=== PATIENT | female | born 1960 | race Caucasian/White ===

== ENCOUNTER → 2016-09-16 | Outpatient (CLI) | payer MEDICARE ==
--- NOTE | 2016-09-16 19:02 | XR ---
EXAMINATION TYPE: XR chest 2V DATE OF EXAM: 09/16/2016 COMPARISON: May 07, 2010 HISTORY: Cough and congestion. History of heart transplant. TECHNIQUE: Frontal and lateral views of the chest are obtained. FINDINGS: There is mild coarsening of interstitial markings. There sternal wires. Heart appears slig htly enlarged. There are no hilar masses. There is no pleural effusion. IMPRESSION: Mild cardiomegaly. No active cardiopulmonary disease. No adverse change compared to old exam.
== END | disposition home or self-care (01) ==
LOC: RADXRMAIN 18:14
PROVIDERS: ATTEND Family Medicine
DX: I51.7 Cardiomegaly (principal); R05 Cough
CPT/HCPCS: 71020

== ENCOUNTER 2017-03-28 15:25 | Emergency (ER) | payer MEDICARE, OTHER ==
[2017-03-28 15:35] VITALS: RESP 20; TEMP 98.4
--- NOTE | 2017-03-28 15:49 | ED ---
General Adult HPI - General Chief complaint: Fever Stated complaint: Cough Time Seen by Provider: 03/28/17 15:39 Source: patient, RN notes reviewed Mode of arrival: ambulatory Limitations: no limitations - History of Present Illness Initial comments: Patient is a 56-year-old female who presents emergency room today with a chief complaint of cough congestion and body aches over the last week. Patient does admit that she was seen prior to [facility] started on antibiotic. She states she's taking amoxicillin. She states she's had no improvement of symptoms. She does admit that she's had low-grade fevers at home. She states nothing over 101 degrees Fahrenheit. She states she's had generalized body aches. She states she's had sputum production it's been green and yellow. She denies any other complaints. Patient denies any recent shortness of breath, chest pain, back pain, abdominal pain, nausea or vomiting, numbness or tingling, headaches or visual changes, or any other complaints. - Related Data Home Medications Medication Instructions Recorded Confirmed Amoxicillin 500 mg PO Q12HR 03/28/17 03/28/17 Aspirin 81 mg PO DAILY 03/28/17 03/28/17 Citalopram Hydrobromide [CeleXA] 10 mg PO DAILY 03/28/17 03/28/17 Ferrous Sulfate [Feosol] 325 mg PO TID 03/28/17 03/28/17 Magnesium Oxide [Mag-Ox] 500 mg PO TID 03/28/17 03/28/17 Mycophenolate Mofetil [Cellcept] 500 mg PO BID 03/28/17 03/28/17 Omeprazole 20 mg PO DAILY 03/28/17 03/28/17 Pravastatin Sodium [Pravachol] 40 mg PO HS 03/28/17 03/28/17 Tacrolimus [Prograf] 2 mg PO BID 03/28/17 03/28/17 Previous Rx's Medication Instructions Recorded Azithromycin [Zithromax Z-pack] 0 mg PO DIRECTED #6 tab 03/28/17 Benzonatate [Tessalon Perles] 100 mg PO TID PRN #20 capsule 03/28/17 Allergies Allergy/AdvReac Type Severity Reaction Status Date / Time meperidine [From Demerol] Allergy Unknown Verified 03/28/17 16:08 morphine Allergy Unknown Verified 03/28/17 16:08 sulfamethoxazole Allergy Unknown Verified 03/28/17 16:08 [From Bactrim] trimethoprim [From Bactrim] Allergy Unknown Verified 03/28/17 16:08 Review of Systems ROS Statement: Those systems with pertinent positive or pertinent negative responses have been documented in the HPI. ROS Other: All systems not noted in ROS Statement are negative. Past Medical History Past Medical History: Heart Failure, Hypertension History of Any Multi-Drug Resistant Organisms: None Reported Past Surgical History: Hysterectomy, Joint Replacement, Orthopedic Surgery Additional Past Surgical History / Comment(s): heart transplant, sinus, carpal tunnel Past Psychological History: No Psychological Hx Reported Smoking Status: Former smoker Past Alcohol Use History: None Reported Past Drug Use History: None Reported General Exam Limitations: no limitations Course Vital Signs 03/28/17 15:32 Temperature 98.4 F Pulse Rate 94 Respiratory 20 Rate Blood Pressure 130/79 O2 Sat by Pulse 98 Oximetry Medical Decision Making - Medical Decision Making Reexamined at this time shows no signs of distress. Patient resting comfortably. Case discussed with attending is Dr. Sadler. Patient's chest x- rays negative. Influenza negative. Patient is to cough congestion over the last week has been on antibiotics and sats positive sputum production with no improvement. Patient was started on azithromycin cover for a bronchitis. Advised follow-up the family doctor. Also be given Tessalon Perles for cough. Advised return if symptoms increase or worsen. - Lab Data Lab Results 03/28/17 Range/Units 15:48 Influenza Type A RNA Not Detected (Not Detectd) Influenza Type B (PCR) Not Detected (Not Detectd) Disposition Clinical Impression: Bronchitis, acute Disposition: HOME SELF-CARE Condition: Good Instructions: Acute Bronchitis (ED) Additional Instructions: Please use medication as discussed. Please follow-up with family doctor in the next 2 days of symptoms have not improved. Please return to emergency room if the symptoms increase or worsen or for any other concerns. Prescriptions: Azithromycin [Zithromax Z-pack] 0 mg PO DIRECTED #6 tab Benzonatate [Tessalon Perles] 100 mg PO TID PRN #20 capsule PRN Reason: Cough Referrals: Willima Guillen DO [Primary Care Provider] - 1-2 days Time of Disposition: 16:46
--- NOTE | 2017-03-28 16:10 | XR ---
EXAMINATION TYPE: XR chest 2V DATE OF EXAM: 03/28/2017 COMPARISON: 09/16/2016 HISTORY: Cough TECHNIQUE: Frontal and lateral views of the chest are obtained. FINDINGS: There is no heart failure nor confluent pneumonic infiltrate. There are sternal wires. Cos tophrenic angles are clear. Bony thorax is intact. IMPRESSION: No active cardiopulmonary disease. No change.
[2017-03-28 17:01] VITALS: BP 119/66; PULSE 92
== END 2017-03-28 17:03 | disposition home or self-care (01) ==
LOC: EC 15:25
DX: J20.9 Acute bronchitis, unspecified (principal); I11.0 Hypertensive heart disease with heart failure; I50.9 Heart failure, unspecified; Z87.891 Personal history of nicotine dependence; Z79.82 Long term (current) use of aspirin; Z79.899 Other long term (current) drug therapy; Z88.5 Allergy status to narcotic agent; Z88.2 Allergy status to sulfonamides
CPT/HCPCS: 71020; 87502; 99283

== ENCOUNTER 2017-06-13 18:30 | Inpatient (IN) | payer MEDICARE, OTHER ==
[2017-06-13] MEDS ORDERED: IPRATROPIUM-ALBUTEROL 3 ML NEB INHALATION STA (18:49)
[2017-06-13] MEDS ORDERED: KETOROLAC 30 MG/ML 1 ML VIAL IVP STA (18:50)
--- NOTE | 2017-06-13 18:53 | ED ---
Chest Pain HPI - General Chief Complaint: Chest Pain Stated Complaint: CHEST PAIN, GABO, HEART Hx Time Seen by Provider: 06/13/17 18:45 Source: patient, RN notes reviewed Mode of arrival: wheelchair Limitations: no limitations - History of Present Illness Initial Comments: Is a 56-year-old female with a history of COPD history of heart transplant 4 years ago who presents with complaints of difficulty breathing yesterday and some chest pain today that is 5/10 severity she points to her right costal chondral margin in the mid upper part of her chest wall anteriorly. She has had a cough of white foamy phlegm she felt feverish has had no chills or sweats no other complaints nothing makes pain better nothing makes it worse. She does point to one particular spot as the location of the pain - Related Data Home Medications Medication Instructions Recorded Confirmed Aspirin 81 mg PO DAILY 03/28/17 06/13/17 Citalopram Hydrobromide [CeleXA] 10 mg PO DAILY 03/28/17 06/13/17 Ferrous Sulfate [Feosol] 325 mg PO TID 03/28/17 06/13/17 Magnesium Oxide [Mag-Ox] 500 mg PO TID 03/28/17 06/13/17 Mycophenolate Mofetil [Cellcept] 500 mg PO BID 03/28/17 06/13/17 Omeprazole 20 mg PO DAILY 03/28/17 06/13/17 Pravastatin Sodium [Pravachol] 40 mg PO HS 03/28/17 06/13/17 Tacrolimus [Prograf] 2 mg PO BID 03/28/17 06/13/17 Allergy Tabotc(Unknown) 1 tab PO DAILY 06/13/17 06/13/17 Previous Rx's Medication Instructions Recorded valACYclovir HCL [Valtrex] 1,000 mg PO TID #21 tablet 03/28/17 Allergies Allergy/AdvReac Type Severity Reaction Status Date / Time meperidine [From Demerol] Allergy Unknown Verified 06/13/17 19:08 morphine Allergy Unknown Verified 06/13/17 19:08 sulfamethoxazole Allergy Unknown Verified 06/13/17 19:08 [From Bactrim] trimethoprim [From Bactrim] Allergy Unknown Verified 06/13/17 19:08 Review of Systems ROS Statement: Those systems with pertinent positive or pertinent negative responses have been documented in the HPI. ROS Other: All systems not noted in ROS Statement are negative. EKG Findings - EKG Results: EKG: interpreted by ANIA, sinus rhythm (Sinus tachycardia rate of 108. Interval 144 QRS duration 132 daily since QTC of 370/506 left exodeviation right bundle-branch block pattern) Past Medical History Past Medical History: Heart Failure, Hypertension History of Any Multi-Drug Resistant Organisms: None Reported Past Surgical History: Hysterectomy, Joint Replacement, Orthopedic Surgery Additional Past Surgical History / Comment(s): heart transplant, sinus, carpal tunnel Past Psychological History: No Psychological Hx Reported Smoking Status: Former smoker Past Alcohol Use History: None Reported Past Drug Use History: None Reported General Exam - General Exam Comments Initial Comments: This is a well-developed well-nourished awake alert oriented 3 female Limitations: no limitations General appearance: alert, in no apparent distress Head exam: Present: atraumatic, normocephalic, normal inspection Eye exam: Present: normal appearance, PERRL, EOMI. Absent: scleral icterus, conjunctival injection, periorbital swelling ENT exam: Present: normal exam, mucous membranes moist Neck exam: Present: normal inspection. Absent: tenderness, meningismus, lymphadenopathy Respiratory exam: Present: chest wall tenderness (Reproducible tenderness palpation along the right lateral costochondral margin no step-off no crepitation this does reproduce the patient's pain), decreased breath sounds. Absent: respiratory distress, wheezes, rales, rhonchi, stridor Cardiovascular Exam: Present: regular rate, normal rhythm, normal heart sounds. Absent: systolic murmur, diastolic murmur, rubs, gallop, clicks GI/Abdominal exam: Present: soft, normal bowel sounds. Absent: distended, tenderness, guarding, rebound, rigid Extremities exam: Present: normal inspection, full ROM, normal capillary refill. Absent: tenderness, pedal edema, joint swelling, calf tenderness Back exam: Present: normal inspection Neurological exam: Present: alert, oriented X3, CN II-XII intact Psychiatric exam: Present: normal affect, normal mood Skin exam: Present: warm, dry, intact, normal color. Absent: rash Course Vital Signs 06/13/17 06/13/17 06/13/17 18:37 19:26 20:10 Temperature 98.4 F Pulse Rate 107 H 105 H 108 H Respiratory 20 18 16 Rate Blood Pressure 109/72 124/75 O2 Sat by Pulse 96 96 Oximetry 06/13/17 06/13/17 20:23 20:56 Temperature Pulse Rate 104 H 105 H Respiratory 14 18 Rate Blood Pressure 111/79 O2 Sat by Pulse 96 Oximetry Chest Pain MDM - MDM Review the imaging shows no definite acute findings. I did discuss the findings with the patient she does have elevation of her troponin 0.133 I did discuss the case with Dr. Yost patient will be admitted with evaluation for elevated troponin chest wall pain as well as atypical chest pain additionally patient states she is feeling somewhat better after the nebulizer treatment. 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 She currently is not a smoker she quit when she had a heart transplant. Critical Care Time Critical Care Time: Yes Critical Care Time: 31 minutes of critical care time which was initial presentation with history physical labs x-rays reevaluation patient responsive therapy discuss with cardiology discussion with the admitting physician admission orders and documentation of the above. Disposition Clinical Impression: Non-ST elevation myocardial infarction (NSTEMI), Atypical chest pain, Chest wall syndrome, COPD exacerbation Disposition: ADMITTED IP TO THIS HOSP Condition: Stable Referrals: William Guillen DO [Primary Care Provider] - 1-2 days
[2017-06-13 19:36] LABS: Basophils % (A) 0 %; Eosinophils # (A) 0.2 k/uL (0-0.7); Eosinophils % (A) 1 %; HCT 38.2 % (34.0-46.0); HGB 12.6 gm/dL (11.4-16.0); Lymphocytes # (A) 2.1 k/uL (1.0-4.8); Lymphocytes % (A) 17 %; MCH 28.5 pg (25.0-35.0); MCHC 32.9 g/dL (31.0-37.0); MCV 86.6 fL (80.0-100.0); Mean Platelet Volume 8.5; Monocytes # (A) 0.5 k/uL (0-1.0); Monocytes % (A) 4 %; Neutrophils # (A) 9.3 k/uL (1.3-7.7); Neutrophils % (A) 76 %; Platelet Count 289 k/uL (150-450); RBC 4.41 m/uL (3.80-5.40); RDW 15.4 % (11.5-15.5); WBC 12.3 k/uL (3.8-10.6)
--- NOTE | 2017-06-13 19:39 | XR ---
EXAMINATION TYPE: XR chest 2V DATE OF EXAM: 06/13/2017 COMPARISON: June 26, 2016 HISTORY: Shortness of breath TECHNIQUE: Frontal and lateral views of the chest are obtained. FINDINGS: Cardiac silhouette is moderately enlarged and stable. Postsurgical changes are noted to th e chest. No pneumothorax or pleural effusion is identified. There is a degree of osteopenia and exagg eration of the normal thoracic kyphosis. IMPRESSION: No acute cardiopulmonary process.
[2017-06-13 19:45] LABS: INR 1.2 (<1.2); Partial Thromboplastin Time 23.1 sec (22.0-30.0); Prothrombin Time 11.4 sec (9.0-12.0)
[2017-06-13 19:48] LABS: ALT 26 U/L (9-52); AST 17 U/L (14-36); Albumin 3.9 g/dL (3.5-5.0); Alkaline Phosphatase 109 U/L (38-126); Anion Gap 12 mmol/L; Blood Urea Nitrogen 22 mg/dL (7-17); Calcium 9.3 mg/dL (8.4-10.2); Carbon Dioxide 23 mmol/L (22-30); Chloride 108 mmol/L (98-107); Glucose 126 mg/dL (74-99); Magnesium 1.7 mg/dL (1.6-2.3); Potassium 3.8 mmol/L (3.5-5.1); Sodium 143 mmol/L (137-145); Total Bilirubin 0.6 mg/dL (0.2-1.3); Total Protein 6.7 g/dL (6.3-8.2)
[2017-06-13 20:20] LABS: Creatine Kinase MB 1.7 ng/mL (0.0-2.4)
[2017-06-13 20:25] LABS: Troponin I 0.133 ng/mL (0.000-0.034)
[2017-06-13 20:59] VITALS: RESP 18
[2017-06-13] MEDS ORDERED: HEPARIN SODIUM,PORCINE 5,000 UNIT/ML 1 ML VIAL IV ONE (21:27)
[2017-06-13] MEDS ORDERED: ACETAMINOPHEN TAB 500 MG TAB PO STA (21:27)
[2017-06-13] MEDS ORDERED: NITROGLYCERIN OINT 1 INCH/GM PACKET TOPICAL STA (21:28)
[2017-06-13] MEDS ORDERED: NITROGLYCERIN SL TABS 0.4 MG TAB SUBLINGUAL PRN (21:30)
[2017-06-13] MEDS ORDERED: SODIUM CHLORIDE 0.9% 1,000 ML IV SCH (21:30)
[2017-06-13] MEDS ORDERED: IPRATROPIUM-ALBUTEROL 3 ML NEB INHALATION PRN (22:59)
[2017-06-13] MEDS: HEPARIN SOD,PORK IN 0.45% NACL 25,000 UNIT in 0.45% NACL 1 500ML.BAG IV SCH (23:14)
[2017-06-14] MEDS ORDERED: IPRATROPIUM-ALBUTEROL 3 ML NEB INHALATION SCH
[2017-06-14 00:20] VITALS: BMI 31.6
[2017-06-14] MEDS: valACYclovir HCL 1,000 MG TABLET PO SCH ×3 (00:26→15:58)
[2017-06-14] MEDS: NITROGLYCERIN OINT 1 INCH/GM PACKET TOPICAL SCH ×4 (00:28→15:59)
[2017-06-14 01:54] LABS: Creatine Kinase MB 1.4 ng/mL (0.0-2.4)
[2017-06-14 01:58] LABS: Troponin I 0.195 ng/mL (0.000-0.034)
[2017-06-14] MEDS: HYDROcodone/APAP 5-325MG 1 EACH TAB PO PRN ×3 (06:05→19:37)
[2017-06-14] MEDS: FERROUS SULFATE 325 MG TAB PO SCH ×3 (06:49→15:59)
[2017-06-14] MEDS: MAGNESIUM OXIDE 400 MG TAB PO SCH ×3 (06:49→15:58)
[2017-06-14 06:57] LABS: Cholesterol 133 mg/dL (<200); HDL Cholesterol 27 mg/dL (40-60); LDL Cholesterol,Calculated 79 mg/dL (0-99); Triglycerides 134 mg/dL (<150)
[2017-06-14 07:18] LABS: Creatine Kinase MB 1.4 ng/mL (0.0-2.4)
[2017-06-14 07:22] LABS: Troponin I 0.202 ng/mL (0.000-0.034)
[2017-06-14] MEDS: IPRATROPIUM-ALBUTEROL 3 ML NEB INHALATION SCH ×3 (07:35→17:02)
[2017-06-14] MEDS: TACROLIMUS 0.5 MG CAP PO SCH ×2 (08:57→19:31)
[2017-06-14] MEDS: MYCOPHENOLATE MOFETIL 500 MG TAB PO SCH ×2 (08:58→19:31)
[2017-06-14] MEDS ORDERED: PANTOPRAZOLE 40 MG TABLET PO SCH (09:00)
[2017-06-14] MEDS ORDERED: CITALOPRAM HYDROBROMIDE 10 MG TAB PO SCH (09:00)
[2017-06-14] MEDS ORDERED: ASPIRIN 325 MG TAB PO SCH (09:00)
[2017-06-14] MEDS ORDERED: ASPIRIN 81 MG PO SCH (09:00)
[2017-06-14] MEDS ORDERED: RX INFO: IV CONTRAST WAS GIVEN 1 EACH MISC MISCELLANE PRN (10:02)
--- NOTE | 2017-06-14 10:20 | CONS ---
CONSULTATION CHIEF COMPLAINT: Chest pain. Syl is a 56-year-old lady with history of cardiac transplant about 4 years ago at [facility], COPD, dyslipidemia, who presented to hospital complaining of chest discomfort. She describes it as a right-sided chest discomfort anteriorly that was located to one spot. There were no clear-cut relieving or exacerbating factors. It was 5/10 in intensity, came to the ER and gradually became chest pain free. At the time of my evaluation, she is free of chest pain, hemodynamically stable and in no apparent distress. She had an EKG that showed sinus rhythm with right bundle branch block and left axis deviation. She has had labs, three sets of troponins that were at 0.13, 0.19, and 0.2[place] [address], LDL cholesterol is 79, her creatinine is normal at 0.8. We do not have a D-dimer. PAST MEDICAL HISTORY: Significant for cardiac transplant, dyslipidemia, COPD. CURRENT MEDICATIONS: Include aspirin, Celexa, iron, magnesium, CellCept, omeprazole, Pravachol, Prograf and Valtrex. ALLERGY: To MORPHINE, DEMEROL, BACTRIM. FAMILY HISTORY: Negative for premature coronary artery disease. SOCIAL HISTORY: She denies current smoking or EtOH abuse. REVIEW OF SYSTEMS: HEENT is unremarkable. CARDIAC: As described above. RESPIRATORY: Negative. GI: Negative. GENITOURINARY: Negative. ALLERGY/IMMUNOLOGY: Negative. SKIN: Negative. MUSCULOSKELETAL: Significant for arthritis. PSYCHOSOCIAL: Negative. ENDOCRINE: Negative. DERM: Negative. CONSTITUTIONAL: Negative. ONCOLOGICAL: Negative. The rest of the system review is not relevant. EXAM: The patient is comfortable at rest. Afebrile. Vital signs are stable. Chest exam reveals diminished air entry at the bases. Heart exam reveals first and second heart sounds. No gallop. There is a systolic murmur in the left lower sternal border. Abdomen is soft. Exam of extremities did not reveal any edema. Peripheral pulses are felt. Labs are as described above. ASSESSMENT: 1. Chest pain, seems atypical. 2. Elevated troponins of unclear clinical significance. 3. History of cardiac transplant with prior issues with rejection. PLAN: I am going to obtain a D-dimer and if that comes back negative, I will leave her on heparin until tomorrow. I will obtain a 2D echo. We should consider transferring her to [facility] so that she can get the appropriate care from her transplant team. I advised the patient that if she comes to the ER in future to have them transfer her to the transplant center right from the ER, which I think is the best way to deal with her. NILS / CHANDLER: [id number] /
--- NOTE | 2017-06-14 11:02 | CT ---
EXAMINATION TYPE: CT angio chest DATE OF EXAM: 06/14/2017 10:48 AM COMPARISON: NONE HISTORY: Difficulty breathing, elevated d-dimer CT DLP: 417.3 mGycm Automated exposure control for dose reduction was used. CONTRAST: CTA scan of the thorax is performed with IV Contrast, patient injected with 100 mL of Omnipaque 350, pulmonary embolism protocol. . FINDINGS: There are small, bilateral pleural effusions. There is associated mild relaxation atelectas is bilaterally. There is no significant axillary, internal mammary, mediastinal or hilar adenopathy. There is no evidence of pulmonary embolus. The aorta is normal in caliber without evidence of dissection. The heart is enlarged. There is no pericardial fluid. Within the abdomen, there is a small amount of ascites. Visualized portions of the abdomen are otherw ise unremarkable. There is mild hypertrophic spondylosis within the spine. IMPRESSION: 1. THIS EXAMINATION IS NEGATIVE FOR PULMONARY 2. SMALL, BILATERAL EFFUSIONS AND A SMALL AMOUNT OF ASCITES. 3. FAIRLY MARKED CARDIOMEGALY.
[2017-06-14 11:20] VITALS: PULSE 100
[2017-06-14 12:01] VITALS: TEMP 96
--- NOTE | 2017-06-14 12:15 | P.HPIM ---
History of Present Illness Patient is 56-year-old female with history of heart transplant done 4 years ago came in with count complaints of retrosternal chest pain sharp in nature nonexertional, nonpleuritic in nature about 9/10 in severity now around 7/10 severity presently the pain is in the back, not associated with shortness of breath, lightheadedness or diaphoresis. Not associated with food. Associated with cough patient does have leukocytosis although does not have any pneumonia on the CAT scan of the chest patient had an elevated edema d-dimer because of which CAT scan of the chest was obtained which showed mild bilateral pleural effusions no pneumonic process are pulmonary embolism. She is found to have mildly elevated troponin and initial troponin being 0.2 related to around 0.1. We do not have any other explanation for elevated troponin. Discussed with cardiology since the patient is a heart transplant patient with history of ejection in the past, plan is to transfer to her to [facility]. Review of Systems REVIEW OF SYSTEMS: CONSTITUTIONAL: No fever, no malaise, no fatigue. HEENT: No recent visual problems or hearing problems. Denied any sore throat. CARDIOVASCULAR: No orthopnea, PND, no palpitations, no syncope. PULMONARY: No shortness of breath, no cough, no hemoptysis. GASTROINTESTINAL: No diarrhea, no nausea, no vomiting, no abdominal pain. Normoactive bowel sounds. NEUROLOGICAL: No headaches, no weakness, no numbness. HEMATOLOGICAL: Denies any bleeding or petechiae. GENITOURINARY: Denies any burning micturition, frequency, or urgency. MUSCULOSKELETAL/RHEUMATOLOGICAL: Denies any joint pain, swelling, or any muscle pain. ENDOCRINE: Denies any polyuria or polydipsia. The rest of the 14-point review of systems is negative. Past Medical History Past Medical History: Heart Failure, COPD, Hypertension History of Any Multi-Drug Resistant Organisms: None Reported Past Surgical History: Cholecystectomy, Hysterectomy, Joint Replacement, Orthopedic Surgery Additional Past Surgical History / Comment(s): heart transplant, sinus, carpal tunnel, left knee replacement Past Psychological History: No Psychological Hx Reported Smoking Status: Former smoker Past Alcohol Use History: None Reported Past Drug Use History: None Reported Medications and Allergies Home Medications Medication Instructions Recorded Confirmed Type Aspirin 81 mg PO DAILY 03/28/17 06/13/17 History Citalopram Hydrobromide [CeleXA] 10 mg PO DAILY 03/28/17 06/13/17 History Ferrous Sulfate [Feosol] 325 mg PO TID 03/28/17 06/13/17 History Magnesium Oxide [Mag-Ox] 500 mg PO TID 03/28/17 06/13/17 History Mycophenolate Mofetil [Cellcept] 500 mg PO BID 03/28/17 06/13/17 History Omeprazole 20 mg PO DAILY 03/28/17 06/13/17 History Pravastatin Sodium [Pravachol] 40 mg PO HS 03/28/17 06/13/17 History Tacrolimus [Prograf] 2 mg PO BID 03/28/17 06/13/17 History valACYclovir HCL [Valtrex] 1,000 mg PO TID #21 tablet 03/28/17 06/13/17 Rx Allergy Tabotc(Unknown) 1 tab PO DAILY 06/13/17 06/13/17 History Allergies Allergy/AdvReac Type Severity Reaction Status Date / Time meperidine [From Demerol] Allergy Unknown Verified 06/13/17 19:08 morphine Allergy Unknown Verified 06/13/17 19:08 sulfamethoxazole Allergy Unknown Verified 06/13/17 19:08 [From Bactrim] trimethoprim [From Bactrim] Allergy Unknown Verified 06/13/17 19:08 Physical Exam Vitals: Vital Signs Temp Pulse Pulse Resp BP BP Pulse Ox 06/14/17 11:59 96.0 F L 100 18 111/67 91 L 06/14/17 11:20 100 06/14/17 07:59 96.9 F L 92 18 109/67 98 06/14/17 07:43 108 H 06/14/17 07:35 100 06/14/17 04:00 97.1 F L 95 18 119/59 95 06/14/17 00:15 106 H 18 06/14/17 00:12 97.3 F L 106 H 18 122/75 94 L 06/13/17 23:17 98.8 F 97 18 109/73 96 06/13/17 20:56 105 H 18 111/79 96 06/13/17 20:23 104 H 14 06/13/17 20:10 108 H 16 06/13/17 19:26 105 H 18 124/75 96 06/13/17 18:37 98.4 F 107 H 20 109/72 96 Intake and Output 06/13/17 06/14/17 06/14/17 22:59 06:59 14:59 Intake Total 20 143.992 Output Total 400 Balance 20 -256.008 Intake: Intake, IV Titration 20 143.992 Amount Heparin Sod,Pork in 0.45% 143.992 NaCl 25,000 unit In 0.45 % NaCl 1 500ml.bag @ 12 UNITS/KG/HR 18.5 mls/hr IV .Q24H [facility] Rx#: [id number] Sodium Chloride 0.9% 1, 20 000 ml @ 20 mls/hr IV . Q24H [facility] Rx#:[id number] Oral 0 Output: Urine 400 Other: Voiding Method Toilet Weight 77.111 kg 83.4 kg PHYSICAL EXAMINATION: GENERAL: The patient is alert and oriented x3, not in any acute distress. Well developed, well nourished. HEENT: Pupils are round and equally reacting to light. EOMI. No scleral icterus. No conjunctival pallor. Normocephalic, atraumatic. No pharyngeal erythema. No thyromegaly. CARDIOVASCULAR: S1 and S2 present. No murmurs, rubs, or gallops. PULMONARY: Chest is clear to auscultation, no wheezing or crackles. ABDOMEN: Soft, nontender, nondistended, normoactive bowel sounds. No palpable organomegaly. MUSCULOSKELETAL: No joint swelling or deformity. EXTREMITIES: No cyanosis, clubbing, or pedal edema. NEUROLOGICAL: Gross neurological examination did not reveal any focal deficits. SKIN: No rashes. Results CBC & Chem 7: 06/13/17 19:25 06/13/17 19:25 Labs: Abnormal Lab Results - Last 24 Hours (Table) 06/13/17 06/13/17 06/13/17 Range/Units 19:25 19:25 19:25 WBC 12.3 H (3.8-10.6) k/uL Neutrophils # 9.3 H (1.3-7.7) k/uL INR (<1.2) APTT (22.0-30.0) sec D-Dimer (<0.60) mg/L FEU Chloride 108 H (98-107) mmol/L BUN 22 H (7-17) mg/dL Glucose 126 H (74-99) mg/dL Troponin I 0.133 H* (0.000-0.034) ng/mL HDL Cholesterol (40-60) mg/dL 18 06/14/17 06/14/17 Range/Units 19:25 00:58 06:33 WBC (3.8-10.6) k/uL Neutrophils # (1.3-7.7) k/uL INR 1.2 H (<1.2) APTT (22.0-30.0) sec D-Dimer (<0.60) mg/L FEU Chloride (98-107) mmol/L BUN (7-17) mg/dL Glucose (74-99) mg/dL Troponin I 0.195 H* 0.202 H* (0.000-0.034) ng/mL HDL Cholesterol (40-60) mg/dL 06/14/17 06/14/17 06/14/17 Range/Units 06:33 06:33 06:33 WBC (3.8-10.6) k/uL Neutrophils # (1.3-7.7) k/uL INR (<1.2) APTT 30.5 H (22.0-30.0) sec D-Dimer 2.77 H (<0.60) mg/L FEU Chloride (98-107) mmol/L BUN (7-17) mg/dL Glucose (74-99) mg/dL Troponin I (0.000-0.034) ng/mL HDL Cholesterol 27 L (40-60) mg/dL Thrombosis Risk Factor Assmnt - Choose All That Apply Any of the Below Risk Factors Present?: Yes Each Factor Represents 1 point: Abnormal pulmonary function (COPD), Age 41-60 years, Obesity (BMI >25) Thrombosis Risk Factor Assessment Total Risk Factor Score: 3 Thrombosis Risk Factor Assessment Level: Moderate Risk Assessment and Plan Plan: -Chest pain: Appears to be musculoskeletal in origin but non-ST elevation microinfarction cannot be ruled out patient is on IV heparin patient does have elevated troponin. -Post cardiac transplant: Patient will be resumed on mycophenolate. -Rule out pulmonary embolism -COPD without any acute exacerbation. -Leukocytosis secondary to viral bronchitis. -Hypertension
--- NOTE | 2017-06-14 12:55 | P.DS ---
Providers Date of admission: 06/13/17 21:34 Attending physician: Angel Guerrero Consults: 06/13/17 21:31 Consult Physician Urgent Consulting Provider: Chante Yost Consult Reason/Comments: Chest pain, elevated troponin Do you want consulting provider notified?: Already Contacted Primary care physician: William Guillen [facility] Course: Patient is being transferred to [facility] considering her heart transplant and elevated troponins Patient Condition at Discharge: Stable Plan - Discharge Summary Discharge Rx Participant: No New Discharge Prescriptions: No Action Magnesium Oxide [Mag-Ox] 500 mg PO TID Aspirin 81 mg PO DAILY Mycophenolate Mofetil [Cellcept] 500 mg PO BID Citalopram Hydrobromide [CeleXA] 10 mg PO DAILY Pravastatin Sodium [Pravachol] 40 mg PO HS Omeprazole 20 mg PO DAILY Ferrous Sulfate [Feosol] 325 mg PO TID Tacrolimus [Prograf] 2 mg PO BID valACYclovir HCL [Valtrex] 1,000 mg PO TID #21 tablet Allergy Tabotc(Unknown) 1 tab PO DAILY Discharge Medication List Aspirin 81 mg PO DAILY 03/28/17 [History] Citalopram Hydrobromide [CeleXA] 10 mg PO DAILY 03/28/17 [History] Ferrous Sulfate [Feosol] 325 mg PO TID 03/28/17 [History] Magnesium Oxide [Mag-Ox] 500 mg PO TID 03/28/17 [History] Mycophenolate Mofetil [Cellcept] 500 mg PO BID 03/28/17 [History] Omeprazole 20 mg PO DAILY 03/28/17 [History] Pravastatin Sodium [Pravachol] 40 mg PO HS 03/28/17 [History] Tacrolimus [Prograf] 2 mg PO BID 03/28/17 [History] valACYclovir HCL [Valtrex] 1,000 mg PO TID #21 tablet 03/28/17 [Rx] Allergy Tabotc(Unknown) 1 tab PO DAILY 06/13/17 [History] Follow up Appointment(s)/Referral(s): William Guillen DO [Primary Care Provider] - 1-2 days Discharge Disposition: OTHER INSTITUTION NOT DEFINED
[2017-06-14 16:18] VITALS: BP 137/77
[2017-06-14] MEDS: HEPARIN SOD,PORK IN 0.45% NACL 25,000 UNIT in 0.45% NACL 1 500ML.BAG IV SCH (19:33)
[2017-06-14] MEDS ORDERED: PRAVASTATIN SODIUM 40 MG TAB PO SCH (21:00)
== END 2017-06-14 19:50 | disposition short-term general hospital (02) | DRG 313 ==
LOC: EC 18:30 → 6SEL 21:34
PROVIDERS: ADMIT Hospitalist; ATTEND Hospitalist
DX: R07.9 Chest pain, unspecified (principal); I11.0 Hypertensive heart disease with heart failure; Z94.1 Heart transplant status; J44.0 Chronic obstructive pulmonary disease with (acute) lower respiratory infection; I50.9 Heart failure, unspecified; J44.1 Chronic obstructive pulmonary disease with (acute) exacerbation; R74.8 Abnormal levels of other serum enzymes; I45.10 Unspecified right bundle-branch block; J20.8 Acute bronchitis due to other specified organisms; E78.5 Hyperlipidemia, unspecified; Z79.82 Long term (current) use of aspirin; Z79.899 Other long term (current) drug therapy; Z87.891 Personal history of nicotine dependence; Z90.710 Acquired absence of both cervix and uterus; Z96.652 Presence of left artificial knee joint
CPT/HCPCS: 36415; 71046; 71275; 80053; 80061; 82550; 82553; 83735; 83880; 84484; 85025; 85379; 85610; 85730; 93005; 94640; 96374; 96375; 99291

== ENCOUNTER 2017-10-21 22:55 | Emergency (ER) | payer MEDICARE, OTHER ==
[2017-10-22 06:50] LABS: ALT 26 U/L (9-52); AST 16 U/L (14-36); Albumin 3.4 g/dL (3.5-5.0); Alkaline Phosphatase 80 U/L (38-126); Anion Gap 7 mmol/L; Blood Urea Nitrogen 12 mg/dL (7-17); Calcium 8.7 mg/dL (8.4-10.2); Carbon Dioxide 24 mmol/L (22-30); Chloride 113 mmol/L (98-107); Glucose 102 mg/dL (74-99); Magnesium 1.6 mg/dL (1.6-2.3); Potassium 3.5 mmol/L (3.5-5.1); Sodium 144 mmol/L (137-145); Total Bilirubin <0.1 mg/dL (0.2-1.3); Total Protein 5.7 g/dL (6.3-8.2)
[2017-10-22 06:51] LABS: Creatine Kinase MB 0.8 ng/mL (0.0-2.4)
[2017-10-22 06:52] LABS: Troponin I 0.057 ng/mL (0.000-0.034)
[2017-10-22 06:59] LABS: Basophils % (A) 0 %; Eosinophils # (A) 0.2 k/uL (0-0.7); Eosinophils % (A) 2 %; HCT 33.3 % (34.0-46.0); HGB 10.6 gm/dL (11.4-16.0); Hypochromasia Moderate; Lymphocytes # (A) 1.1 k/uL (1.0-4.8); Lymphocytes % (A) 13 %; MCH 27.6 pg (25.0-35.0); MCHC 31.7 g/dL (31.0-37.0); Mean Platelet Volume 7.5; Monocytes # (A) 0.5 k/uL (0-1.0); Monocytes % (A) 6 %; Neutrophils # (A) 6.3 k/uL (1.3-7.7); Neutrophils % (A) 77 %; Platelet Count 257 k/uL (150-450); RBC 3.83 m/uL (3.80-5.40); RDW 15.9 % (11.5-15.5); WBC 8.3 k/uL (3.8-10.6)
--- NOTE | 2017-10-22 11:24 | XR ---
EXAMINATION TYPE: XR chest 2V DATE OF EXAM: 10/22/2017 COMPARISON: Prior chest x-ray July 17, 2017 and older studies. CTA chest June 14, 2017 HISTORY: Cough and shortness of breath TECHNIQUE: Frontal and lateral views of the chest are obtained. FINDINGS: Overlying sternal wires and mediastinal clips are redemonstrated. There is chronic parenchy mal change and opacity with chronic silhouetting of the left heart border. There is no suspicious new focal air space opacity, pleural effusion, or pneumothorax seen. The cardiac silhouette size remain s enlarged. The osseous structures are demineralized.. Cholecystectomy clips are noted. IMPRESSION: Chronic parenchymal changes and cardiomegaly, cannot exclude early versus chronic lingul ar infiltrate. Consider progress two view chest xray.
== END 2017-10-22 04:45 | disposition other institution (70) ==
LOC: EC 22:55
DX: J18.9 Pneumonia, unspecified organism (principal); I50.9 Heart failure, unspecified; Z94.1 Heart transplant status; Z95.1 Presence of aortocoronary bypass graft; Z88.5 Allergy status to narcotic agent; Z88.8 Allergy status to other drugs, medicaments and biological substances; Z87.891 Personal history of nicotine dependence
CPT/HCPCS: 36415; 71046; 80053; 82550; 82553; 83735; 83880; 84484; 85025; 85379; 94640; 96374; 96375; 99285

== ENCOUNTER 2018-01-17 16:35 | Emergency (ER) | payer MEDICARE, OTHER ==
--- NOTE | 2018-01-17 17:03 | ED ---
General Adult HPI - General Chief complaint: Abdominal Pain Stated complaint: Abd pain/Poss Kidney Failure Source: patient Mode of arrival: ambulatory Limitations: no limitations - History of Present Illness Initial comments: Dictation was produced using [employer] dictation software. please excuse any grammatical, word or spelling errors. Chief Complaint: 57-year-old female with past medical history of heart transplant, CHF and kidney failure presents with back pain since yesterday. History of Present Illness: Patient is a 57-year-old female presents with back pain and burning in urination. Patient states that her symptoms started yesterday. State that her symptoms aren't with back pain. Patient also has associated burning on urination. She complaining of constitutional symptoms associated. She states that she's been feeling some chills. Denies any fever. Patient is on immunosuppressants for heart transplant. Primary care physician is Dr. Guillen in [facility]. She normally receives her care at [facility]. Patient was 44 resulting when she had a heart transplant. Denies any abdominal pain. Denies any neuro deficits or bilateral lower extremities symptoms. The ROS documented in this emergency department record has been reviewed and confirmed by me. Those systems with pertinent positive or negative responses have been documented in the HPI. All other systems are other negative and/or noncontributory. - Related Data Home Medications Medication Instructions Recorded Confirmed Aspirin 81 mg PO DAILY 03/28/17 07/17/17 Citalopram Hydrobromide [CeleXA] 10 mg PO DAILY 03/28/17 07/17/17 Ferrous Sulfate [Feosol] 325 mg PO TID 03/28/17 07/17/17 Magnesium Oxide [Mag-Ox] 500 mg PO TID 03/28/17 07/17/17 Omeprazole 20 mg PO DAILY 03/28/17 07/17/17 Pravastatin Sodium [Pravachol] 40 mg PO HS 03/28/17 07/17/17 Tacrolimus [Prograf] 2 mg PO BID 03/28/17 07/17/17 Allergy Tabotc(Unknown) 1 tab PO DAILY 06/13/17 07/17/17 Apixaban [Eliquis] 5 mg PO BID 07/17/17 07/17/17 Mycophenolate Mofetil [Cellcept] 1,250 mg PO BID 07/17/17 07/17/17 predniSONE 5 mg PO DAILY 07/17/17 07/17/17 valGANciclovir [Valcyte] 450 mg PO QAM 07/17/17 07/17/17 Allergies Allergy/AdvReac Type Severity Reaction Status Date / Time morphine Allergy Rash/Hives Verified 01/17/18 18:28 sulfamethoxazole Allergy Dyspnea Verified 01/17/18 18:28 [From Bactrim] trimethoprim [From Bactrim] Allergy Dyspnea Verified 01/17/18 18:28 meperidine [From Demerol] AdvReac Hallucinati Verified 01/17/18 18:28 ons Review of Systems ROS Statement: Those systems with pertinent positive or pertinent negative responses have been documented in the HPI. ROS Other: All systems not noted in ROS Statement are negative. Past Medical History Past Medical History: Heart Failure, COPD, Hypertension, Renal Disease History of Any Multi-Drug Resistant Organisms: None Reported Past Surgical History: Cholecystectomy, Hysterectomy, Joint Replacement, Orthopedic Surgery Additional Past Surgical History / Comment(s): heart transplant, sinus, carpal tunnel, left knee replacement Past Psychological History: No Psychological Hx Reported Smoking Status: Current every day smoker Past Alcohol Use History: None Reported Past Drug Use History: None Reported General Exam - General Exam Comments Initial Comments: PHYSICAL EXAM: General Impression: Alert and oriented x3, not in acute distress HEENT: Normocephalic atraumatic, extra-ocular movements intact, pupils equal and reactive to light bilaterally, mucous membranes moist. Cardiovascular: Heart regular rate and rhythm, S1&S2 audible, no murmurs, rubs or gallops Chest: Lungs clear to auscultation bilaterally, no rhonchi, no wheeze, no rales Abdomen: Bowel sounds present, abdomen soft, non-tender, non-distended, no organomegaly Musculoskeletal: Pulses present and equal in all extremities, no peripheral edema Motor: Power 5/5 bilaterally, no focal deficits noted, mild tenderness to palpation over the L2-L3 area Neurological: CN II-XII grossly intact, no focal motor or sensory deficits noted Skin: Intact with no visualized rashes Psych: Normal affect and mood Limitations: no limitations Course Vital Signs 01/17/18 16:50 Temperature 98 F Pulse Rate 116 H Respiratory 20 Rate Blood Pressure 128/88 O2 Sat by Pulse 98 Oximetry Medical Decision Making - Medical Decision Making ED course: 57-year-old female presents with back pain and burning on urination. Patient has history of cardiac transplant. Vital signs upon arrival shows tachycardia 116, vital signs within normal limits.Laboratory evaluation obtained. CBC is unremarkable. ESR is negative. Metabolic panel is unremarkable. No signs of acute kidney injury. Urinalysis is negative for urinary tract infection. At this point there is very low clinical suspicion that patient's symptoms represent spinal infection. Patient reevaluated with stable medical condition. She told to follow-up with primary care physician upon discharge. - Lab Data Result diagrams: 01/17/18 17:11 01/17/18 17:11 Lab Results 01/17/18 01/17/18 01/17/18 Range/Units 17:11 17:11 17:30 WBC 8.5 (3.8-10.6) k/uL RBC 4.73 (3.80-5.40) m/uL Hgb 12.2 (11.4-16.0) gm/dL Hct 40.6 (34.0-46.0) % MCV 85.8 (80.0-100.0) fL MCH 25.8 (25.0-35.0) pg MCHC 30.1 L (31.0-37.0) g/dL RDW 16.8 H (11.5-15.5) % Plt Count 285 (150-450) k/uL Neutrophils % 70 % Lymphocytes % 22 % Monocytes % 4 % Eosinophils % 2 % Basophils % 1 % Neutrophils # 6.0 (1.3-7.7) k/uL Lymphocytes # 1.8 (1.0-4.8) k/uL Monocytes # 0.3 (0-1.0) k/uL Eosinophils # 0.2 (0-0.7) k/uL Basophils # 0.1 (0-0.2) k/uL Hypochromasia Moderate Anisocytosis Slight ESR 11 (0-20) mm/hr Sodium 141 (137-145) mmol/L Potassium 4.1 (3.5-5.1) mmol/L Chloride 111 H (98-107) mmol/L Carbon Dioxide 23 (22-30) mmol/L Anion Gap 7 mmol/L BUN 20 H (7-17) mg/dL Creatinine 0.70 (0.52-1.04) mg/dL Est GFR (CKD-EPI)AfAm >90 (>60 ml/min/1.73 sqM) Est GFR (CKD-EPI)NonAf >90 (>60 ml/min/1.73 sqM) Glucose 115 H (74-99) mg/dL Calcium 9.1 (8.4-10.2) mg/dL C-Reactive Protein <5.0 (<10.0) mg/L Urine Color Yellow Urine Appearance Clear (Clear) Urine pH 6.0 (5.0-8.0) Ur Specific [place] 1.018 (1.001-1.035) Urine Protein Negative (Negative) Urine Glucose (UA) Negative (Negative) Urine Ketones Negative (Negative) Urine Blood Negative (Negative) Urine Nitrite Negative (Negative) Urine Bilirubin Negative (Negative) Urine Urobilinogen 3.0 (<2.0) mg/dL Ur Leukocyte Esterase Negative (Negative) Disposition Clinical Impression: Mechanical back pain Disposition: HOME SELF-CARE Instructions: Acute Low Back Pain (ED) Is patient prescribed a controlled substance at d/c from ED?: No Referrals: William Guillen DO [Primary Care Provider] - 1-2 days Time of Disposition: 18:43
[2018-01-17 17:28] LABS: Anisocytosis Slight; Basophils # (A) 0.1 k/uL (0-0.2); Basophils % (A) 1 %; Eosinophils # (A) 0.2 k/uL (0-0.7); Eosinophils % (A) 2 %; HCT 40.6 % (34.0-46.0); HGB 12.2 gm/dL (11.4-16.0); Hypochromasia Moderate; Lymphocytes # (A) 1.8 k/uL (1.0-4.8); Lymphocytes % (A) 22 %; MCH 25.8 pg (25.0-35.0); MCHC 30.1 g/dL (31.0-37.0); MCV 85.8 fL (80.0-100.0); Mean Platelet Volume 7.5; Monocytes # (A) 0.3 k/uL (0-1.0); Monocytes % (A) 4 %; Neutrophils % (A) 70 %; Platelet Count 285 k/uL (150-450); RBC 4.73 m/uL (3.80-5.40); RDW 16.8 % (11.5-15.5); WBC 8.5 k/uL (3.8-10.6)
[2018-01-17 18:02] LABS: Anion Gap 7 mmol/L; Blood Urea Nitrogen 20 mg/dL (7-17); C Reactive Protein <5.0 mg/L (<10.0); Calcium 9.1 mg/dL (8.4-10.2); Carbon Dioxide 23 mmol/L (22-30); Chloride 111 mmol/L (98-107); Glucose 115 mg/dL (74-99); Potassium 4.1 mmol/L (3.5-5.1); Sodium 141 mmol/L (137-145)
[2018-01-17 18:02] LABS: Appearance,Urine Clear (Clear); Bilirubin,Urine Negative (Negative); Blood,Urine Negative (Negative); Color,Urine Yellow; Glucose,Urine (UA) Negative (Negative); Ketones,Urine Negative (Negative); Leukocyte Esterase,Urine Negative (Negative); Nitrite,Urine Negative (Negative); Protein,Urine Negative (Negative); Specific Gravity,Urine 1.018 (1.001-1.035)
[2018-01-17 18:13] LABS: Erythrocyte Sedimentation Rate 11 mm/hr (0-20)
[2018-01-17 18:58] VITALS: BP 140/99; PULSE 122; RESP 18; TEMP 98.2
== END 2018-01-17 18:59 | disposition home or self-care (01) ==
LOC: EC 16:35
DX: M54.9 Dorsalgia, unspecified (principal); R00.0 Tachycardia, unspecified; R30.0 Dysuria; I11.0 Hypertensive heart disease with heart failure; I50.9 Heart failure, unspecified; F17.200 Nicotine dependence, unspecified, uncomplicated; Z79.82 Long term (current) use of aspirin; Z79.01 Long term (current) use of anticoagulants; Z79.52 Long term (current) use of systemic steroids; Z79.899 Other long term (current) drug therapy; Z88.2 Allergy status to sulfonamides; Z88.5 Allergy status to narcotic agent; Z96.652 Presence of left artificial knee joint; Z94.1 Heart transplant status; Z90.49 Acquired absence of other specified parts of digestive tract
CPT/HCPCS: 36415; 80048; 81003; 85025; 85652; 86140; 87086; 99284

== ENCOUNTER 2018-01-31 18:51 | Inpatient (IN) | payer MEDICARE, OTHER ==
[2018-01-31] MEDS ORDERED: methylPREDNISolone SOD SUCCI 125 MG/2 ML VIAL IV STA (19:12)
[2018-01-31] MEDS ORDERED: IPRATROPIUM-ALBUTEROL 3 ML NEB INHALATION STA ×2 (19:12→20:52)
--- NOTE | 2018-01-31 19:22 | ED ---
SOB HPI - General Chief Complaint: Shortness of Breath Stated Complaint: abdominal swelling/GABO Time Seen by Provider: 01/31/18 18:55 Source: patient, RN notes reviewed Mode of arrival: ambulatory Limitations: no limitations - History of Present Illness Initial Comments: This is a 57-year-old female with a history of multiple medical problems including COPD who presents with complaints of shortness of breath this started yesterday she said fevers chills sweats cough of white phlegm no chest pain no relief from her home medications no edema she has had a history of kidney failure in the past. MD Complaint: shortness of breath - Related Data Home Medications Medication Instructions Recorded Confirmed Aspirin 81 mg PO DAILY 03/28/17 07/17/17 Citalopram Hydrobromide [CeleXA] 10 mg PO DAILY 03/28/17 07/17/17 Ferrous Sulfate [Feosol] 325 mg PO TID 03/28/17 07/17/17 Magnesium Oxide [Mag-Ox] 500 mg PO TID 03/28/17 07/17/17 Omeprazole 20 mg PO DAILY 03/28/17 07/17/17 Pravastatin Sodium [Pravachol] 40 mg PO HS 03/28/17 07/17/17 Tacrolimus [Prograf] 2 mg PO BID 03/28/17 07/17/17 Allergy Tabotc(Unknown) 1 tab PO DAILY 06/13/17 07/17/17 Apixaban [Eliquis] 5 mg PO BID 07/17/17 07/17/17 Mycophenolate Mofetil [Cellcept] 1,250 mg PO BID 07/17/17 07/17/17 predniSONE 5 mg PO DAILY 07/17/17 07/17/17 valGANciclovir [Valcyte] 450 mg PO QAM 07/17/17 07/17/17 Allergies Allergy/AdvReac Type Severity Reaction Status Date / Time morphine Allergy Rash/Hives Verified 01/31/18 18:57 sulfamethoxazole Allergy Dyspnea Verified 01/31/18 18:57 [From Bactrim] trimethoprim [From Bactrim] Allergy Dyspnea Verified 01/31/18 18:57 meperidine [From Demerol] AdvReac Hallucinati Verified 01/31/18 18:57 ons Review of Systems ROS Statement: Those systems with pertinent positive or pertinent negative responses have been documented in the HPI. ROS Other: All systems not noted in ROS Statement are negative. Past Medical History Past Medical History: Heart Failure, COPD, Hypertension, Renal Disease History of Any Multi-Drug Resistant Organisms: None Reported Past Surgical History: Cholecystectomy, Hysterectomy, Joint Replacement, Orthopedic Surgery Additional Past Surgical History / Comment(s): heart transplant, sinus, carpal tunnel, left knee replacement Past Psychological History: No Psychological Hx Reported Smoking Status: Former smoker Past Alcohol Use History: None Reported Past Drug Use History: None Reported General Exam - General Exam Comments Initial Comments: This is a well-developed well-nourished awake alert oriented 3 female who is in obvious respiratory distress Limitations: no limitations General appearance: alert, anxious, in distress Head exam: Present: atraumatic, normocephalic, normal inspection Eye exam: Present: normal appearance, PERRL, EOMI. Absent: scleral icterus, conjunctival injection, periorbital swelling ENT exam: Present: normal exam, mucous membranes moist Neck exam: Present: normal inspection. Absent: tenderness, meningismus, lymphadenopathy Respiratory exam: Present: wheezes, accessory muscle use, decreased breath sounds. Absent: respiratory distress, rales, rhonchi, stridor Cardiovascular Exam: Present: normal rhythm, tachycardia, normal heart sounds. Absent: systolic murmur, diastolic murmur, rubs, gallop, clicks GI/Abdominal exam: Present: soft, normal bowel sounds. Absent: distended, tenderness, guarding, rebound, rigid Extremities exam: Present: normal inspection, full ROM, normal capillary refill. Absent: tenderness, pedal edema, joint swelling, calf tenderness Back exam: Present: normal inspection Neurological exam: Present: alert, oriented X3, CN II-XII intact Psychiatric exam: Present: normal affect, normal mood Skin exam: Present: warm, dry, intact, normal color. Absent: rash Course Vital Signs 01/31/18 01/31/18 01/31/18 18:54 19:37 19:39 Temperature 99.4 F Pulse Rate 138 H 135 H 134 H Pulse Rate [ 133 H Clothing Manager ] Respiratory 20 22 Rate Blood Pressure 129/88 126/87 O2 Sat by Pulse 92 L 93 L Oximetry 01/31/18 01/31/18 01/31/18 19:47 20:52 21:03 Temperature Pulse Rate 134 H 133 H 131 H Pulse Rate [ Clothing Manager ] Respiratory 26 H Rate Blood Pressure 115/73 O2 Sat by Pulse 92 L Oximetry 01/31/18 21:12 Temperature Pulse Rate 133 H Pulse Rate [ Clothing Manager ] Respiratory Rate Blood Pressure O2 Sat by Pulse Oximetry - Reevaluation(s) Reevaluation #1: 01/31/18 21:40 Reevaluation the patient reveals some improvement in her aeration. She still dyspneic however. She still remains tachycardic Medical Decision Making - Medical Decision Making Patient does demonstrate evidence of CHF as well as COPD exacerbation she will be admitted to discuss case with Dr. Carson. Patient will be seen by cardiology and pulmonary medicine. Patient did demonstrate low-grade temperature upon arrival no definite focal etiology antibiotics - Lab Data Result diagrams: 01/31/18 19:23 01/31/18 19:23 Lab Results 01/31/18 01/31/18 01/31/18 Range/Units 19:23 19:23 19:23 WBC 9.5 (3.8-10.6) k/uL RBC 4.46 (3.80-5.40) m/uL Hgb 11.7 (11.4-16.0) gm/dL Hct 37.8 (34.0-46.0) % MCV 84.7 (80.0-100.0) fL MCH 26.2 (25.0-35.0) pg MCHC 31.0 (31.0-37.0) g/dL RDW 16.5 H (11.5-15.5) % Plt Count 271 (150-450) k/uL Neutrophils % 83 % Lymphocytes % 9 % Monocytes % 5 % Eosinophils % 1 % Basophils % 0 % Neutrophils # 7.9 H (1.3-7.7) k/uL Lymphocytes # 0.9 L (1.0-4.8) k/uL Monocytes # 0.5 (0-1.0) k/uL Eosinophils # 0.1 (0-0.7) k/uL Basophils # 0.0 (0-0.2) k/uL Hypochromasia Moderate Anisocytosis Slight PT (9.0-12.0) sec INR (<1.2) APTT (22.0-30.0) sec Sodium 141 (137-145) mmol/L Potassium 4.0 (3.5-5.1) mmol/L Chloride 110 H (98-107) mmol/L Carbon Dioxide 22 (22-30) mmol/L Anion Gap 9 mmol/L BUN 9 (7-17) mg/dL Creatinine 0.70 (0.52-1.04) mg/dL Est GFR (CKD-EPI)AfAm >90 (>60 ml/min/1.73 sqM) Est GFR (CKD-EPI)NonAf >90 (>60 ml/min/1.73 sqM) Glucose 127 H (74-99) mg/dL Calcium 9.2 (8.4-10.2) mg/dL Magnesium 1.7 (1.6-2.3) mg/dL Total Bilirubin 1.0 (0.2-1.3) mg/dL AST 18 (14-36) U/L ALT 17 (9-52) U/L Alkaline Phosphatase 109 (38-126) U/L Total Creatine Kinase 69 (30-135) U/L CK-MB (CK-2) 0.5 (0.0-2.4) ng/mL CK-MB (CK-2) Rel Index 0.7 Troponin I 0.031 (0.000-0.034) ng/mL NT-Pro-B Natriuret Pep pg/mL Total Protein 6.5 (6.3-8.2) g/dL Albumin 3.8 (3.5-5.0) g/dL 01/31/18 01/31/18 Range/Units 19:23 19:23 WBC (3.8-10.6) k/uL RBC (3.80-5.40) m/uL Hgb (11.4-16.0) gm/dL Hct (34.0-46.0) % MCV (80.0-100.0) fL MCH (25.0-35.0) pg MCHC (31.0-37.0) g/dL RDW (11.5-15.5) % Plt Count (150-450) k/uL Neutrophils % % Lymphocytes % % Monocytes % % Eosinophils % % Basophils % % Neutrophils # (1.3-7.7) k/uL Lymphocytes # (1.0-4.8) k/uL Monocytes # (0-1.0) k/uL Eosinophils # (0-0.7) k/uL Basophils # (0-0.2) k/uL Hypochromasia Anisocytosis PT 11.6 (9.0-12.0) sec INR 1.2 H (<1.2) APTT 25.0 (22.0-30.0) sec Sodium (137-145) mmol/L Potassium (3.5-5.1) mmol/L Chloride (98-107) mmol/L Carbon Dioxide (22-30) mmol/L Anion Gap mmol/L BUN (7-17) mg/dL Creatinine (0.52-1.04) mg/dL Est GFR (CKD-EPI)AfAm (>60 ml/min/1.73 sqM) Est GFR (CKD-EPI)NonAf (>60 ml/min/1.73 sqM) Glucose (74-99) mg/dL Calcium (8.4-10.2) mg/dL Magnesium (1.6-2.3) mg/dL Total Bilirubin (0.2-1.3) mg/dL AST (14-36) U/L ALT (9-52) U/L Alkaline Phosphatase (38-126) U/L Total Creatine Kinase (30-135) U/L CK-MB (CK-2) (0.0-2.4) ng/mL CK-MB (CK-2) Rel Index Troponin I (0.000-0.034) ng/mL NT-Pro-B Natriuret Pep 20695 pg/mL Total Protein (6.3-8.2) g/dL Albumin (3.5-5.0) g/dL - EKG Data -: EKG Interpreted by [place] EKG shows normal: sinus rhythm (Sinus tachycardia 137 IN interval 1:30 QRS duration 110 QT/QTC 296/446 left atrial enlargement and incomplete right bundle- branch block with anterior fascicular block nonspecific lateral configuration) - Radiology Data Radiology results: report reviewed (Imaging was reviewed no focal consolidations or is evidence of increased pulmonary vascular congestion and cardiomegaly. Please see the complete report), image reviewed Critical Care Time Critical Care Time: Yes Critical Care Time: 32 minutes of critical care time which includes initial presentation with history physical labs x-rays multiple reevaluation the patient to response to therapy discuss with the patient regarding findings discussion the admitting physician admission orders documentation of the above Disposition Clinical Impression: Congestive heart failure, Acute exacerbation of chronic obstructive airways disease, Adult respiratory distress syndrome, Tachycardia Disposition: ADMITTED IP TO THIS HOSP Condition: Stable Referrals: William Guillen DO [Primary Care Provider] - 1-2 days
[2018-01-31 19:47] LABS: Anisocytosis Slight; Basophils % (A) 0 %; Eosinophils # (A) 0.1 k/uL (0-0.7); Eosinophils % (A) 1 %; HCT 37.8 % (34.0-46.0); HGB 11.7 gm/dL (11.4-16.0); Hypochromasia Moderate; Lymphocytes # (A) 0.9 k/uL (1.0-4.8); Lymphocytes % (A) 9 %; MCH 26.2 pg (25.0-35.0); MCV 84.7 fL (80.0-100.0); Mean Platelet Volume 7.5; Monocytes # (A) 0.5 k/uL (0-1.0); Monocytes % (A) 5 %; Neutrophils # (A) 7.9 k/uL (1.3-7.7); Neutrophils % (A) 83 %; Platelet Count 271 k/uL (150-450); RBC 4.46 m/uL (3.80-5.40); RDW 16.5 % (11.5-15.5); WBC 9.5 k/uL (3.8-10.6)
[2018-01-31 19:48] LABS: INR 1.2 (<1.2); Prothrombin Time 11.6 sec (9.0-12.0)
[2018-01-31 19:54] LABS: ALT 17 U/L (9-52); AST 18 U/L (14-36); Albumin 3.8 g/dL (3.5-5.0); Alkaline Phosphatase 109 U/L (38-126); Anion Gap 9 mmol/L; Blood Urea Nitrogen 9 mg/dL (7-17); Calcium 9.2 mg/dL (8.4-10.2); Carbon Dioxide 22 mmol/L (22-30); Chloride 110 mmol/L (98-107); Glucose 127 mg/dL (74-99); Magnesium 1.7 mg/dL (1.6-2.3); Sodium 141 mmol/L (137-145); Total Protein 6.5 g/dL (6.3-8.2)
[2018-01-31 20:05] LABS: Creatine Kinase MB 0.5 ng/mL (0.0-2.4); Troponin I 0.031 ng/mL (0.000-0.034)
--- NOTE | 2018-01-31 20:45 | XR ---
EXAMINATION TYPE: XR chest 2V DATE OF EXAM: 01/31/2018 COMPARISON: 10/22/2017 INDICATION: Difficulty breathing TECHNIQUE: Frontal and lateral views of the chest are obtained. FINDINGS: The heart size is enlarged. The pulmonary vasculature is upper limits of normal. The lungs are clear. Surgical clips overlie the left upper chest. EKG leads overlie the chest. Benson otomy wires are in the midline. IMPRESSION: 1. Cardiomegaly with slight prominence of the pulmonary vascular markings.
[2018-01-31] MEDS ORDERED: FUROSEMIDE 10 MG/ML 4 ML VIAL IV STA (20:52)
[2018-01-31 23:24] LABS: Glucose,Whole Blood 182 mg/dL (75-99)
[2018-01-31] MEDS: MAGNESIUM OXIDE 400 MG TAB PO SCH (23:41)
[2018-01-31] MEDS: FERROUS SULFATE 325 MG TAB PO SCH (23:41)
[2018-01-31] MEDS: FUROSEMIDE 10 MG/ML 4 ML VIAL IV SCH (23:42)
[2018-02-01] MEDS: TACROLIMUS 1 MG CAP PO SCH ×3 (00:05→20:38)
[2018-02-01] MEDS: MYCOPHENOLATE MOFETIL 250 MG CAP PO SCH ×3 (00:05→20:39)
[2018-02-01] MEDS: methylPREDNISolone SOD SUCCI 125 MG/2 ML VIAL IV SCH ×4 (00:07→16:49)
[2018-02-01 06:15] LABS: Glucose,Whole Blood 247 mg/dL (75-99)
[2018-02-01] MEDS: INSULIN ASPART 100 UNIT/ML 1 ML 10 ML VIAL SQ SCH ×4 (06:42→20:37)
[2018-02-01] MEDS: PANTOPRAZOLE 40 MG TABLET PO SCH (06:42)
[2018-02-01] MEDS: IPRATROPIUM-ALBUTEROL 3 ML NEB INHALATION SCH ×5 (07:59→21:28)
--- NOTE | 2018-02-01 08:05 | P.CRDCN ---
History of Present Illness Consult date: 02/01/18 Requesting physician: Mariusz Carson Consult reason: congestive heart failure Chief complaint: Shortness of breath and weight gain History of present illness: This is a pleasant 57-year-old female who has history of heart transplant in 2012 for which she follows with [place] [facility], she also has history of COPD, hyperlipidemia, diabetes, history of renal failure,. Nonsmoker. According to the patient, she noticed from one day to the next that she had put on approximately 10 pounds in weight, she states that she was quite short of breath and noticed some mild peripheral edema. According to her, she been feeling well the days prior not having any shortness of breath, she does state over the past few days prior to admission she had been running a fever of around 100 at home. Chest x-ray on admission here showed cardiomegaly with slight prominence of pulmonary vascular markings. Her EKG on presentation here showed a sinus tachycardia with incomplete right bundle branch block pattern. Blood pressure on arrival here 128/80, heart rate 1:30, temperature 99.4, 92% on room air. White blood cell count 9.5, hemoglobin 11.7, platelet count 271. Sodium 141, potassium 4.0, BUN 9, creatinine 0.7. Magnesium level I.7. AST and ALT are normal. Troponin 0.31, 0.25. BNP level 10,900. Patient was initiated on IV Lasix in the emergency room, she states that she's diuresed well since her arrival here. Patient's home medications include aspirin 81 mg daily, Eliquis 5 mg twice a day, magnesium, iron, Celexa, Pravachol 40 mg daily , omeprazole, CellCept, Prograf, prednisone 5 mg daily and Valcyte. Past Medical History Past Medical History: Heart Failure, COPD, Diabetes Mellitus, Hypertension, Renal Disease Additional Past Medical History / Comment(s): heart transplant from [facility] on May 2017. DM due to prednisone taking Januvia at home History of Any Multi-Drug Resistant Organisms: None Reported Past Surgical History: Cholecystectomy, Hysterectomy, Joint Replacement, Orthopedic Surgery Additional Past Surgical History / Comment(s): heart transplant 05/2017, sinus, carpal tunnel, left knee replacement. *40 stents in her old heart Past Anesthesia/Blood Transfusion Reactions: No Reported Reaction Past Psychological History: No Psychological Hx Reported Smoking Status: Former smoker Past Alcohol Use History: None Reported Past Drug Use History: None Reported - Past Family History Father Family Medical History: Cancer Additional Family Medical History / Comment(s): melanoma Mother Family Medical History: Cancer Additional Family Medical History / Comment(s): rectal Medications and Allergies Home Medications Medication Instructions Recorded Confirmed Type Aspirin 81 mg PO DAILY 03/28/17 01/31/18 History Citalopram Hydrobromide [CeleXA] 10 mg PO DAILY 03/28/17 01/31/18 History Ferrous Sulfate [Feosol] 325 mg PO TID 03/28/17 01/31/18 History Magnesium Oxide [Mag-Ox] 500 mg PO TID 03/28/17 01/31/18 History Omeprazole 20 mg PO DAILY 03/28/17 01/31/18 History Pravastatin Sodium [Pravachol] 40 mg PO HS 03/28/17 01/31/18 History Tacrolimus [Prograf] 2 mg PO BID 03/28/17 01/31/18 History Allergy Tabotc(Unknown) 1 tab PO DAILY 06/13/17 01/31/18 History Apixaban [Eliquis] 5 mg PO BID 07/17/17 01/31/18 History Mycophenolate Mofetil [Cellcept] 1,250 mg PO BID 07/17/17 01/31/18 History predniSONE 5 mg PO DAILY 07/17/17 01/31/18 History valGANciclovir [Valcyte] 450 mg PO QAM 07/17/17 01/31/18 History Allergies Allergy/AdvReac Type Severity Reaction Status Date / Time morphine Allergy Rash/Hives Verified 01/31/18 18:57 sulfamethoxazole Allergy Dyspnea Verified 01/31/18 18:57 [From Bactrim] trimethoprim [From Bactrim] Allergy Dyspnea Verified 01/31/18 18:57 meperidine [From Demerol] AdvReac Hallucinati Verified 01/31/18 18:57 ons Physical Exam Vitals: Vital Signs Temp Pulse Pulse Resp BP BP Pulse Ox 02/01/18 04:00 98.6 F 114 H 18 115/75 90 L 02/01/18 00:00 99 F 122 H 19 114/76 92 L 01/31/18 22:11 99.1 F 129 H 26 H 114/71 94 L 01/31/18 22:10 98.2 F 130 H 20 124/71 94 L 01/31/18 21:12 133 H 01/31/18 21:03 131 H 01/31/18 20:52 133 H 26 H 115/73 92 L 01/31/18 19:47 134 H 01/31/18 19:39 134 H 133 H 01/31/18 19:37 135 H 22 126/87 93 L 01/31/18 18:54 99.4 F 138 H 20 129/88 92 L Intake and Output 01/31/18 02/01/18 02/01/18 22:59 06:59 14:59 Intake Total 450 Balance 450 Intake: Intake, IV Titration 50 Amount cefTRIAXone 1,000 mg In 50 Sodium Chloride 0.9% 50 ml @ 100 mls/hr IVPB ONCE STA Rx#:[id number] Oral 400 Other: Voiding Method Toilet # Voids 2 Weight 71.4 kg 69.2 kg PHYSICAL EXAMINATION: GENERAL: 57-year-old female in no acute distress at the time of my examination HEENT: Head is atraumatic, normocephalic. Pupils equal, round. Sclera anicteric. Conjunctiva are clear. Mucous membranes of the mouth are moist. Neck is supple. There is no elevated jugular venous pressure. No carotid bruit is heard. HEART EXAMINATION: Heart S1 and S2 systolic murmur is heard. CHEST EXAMINATION: Lungs reveal scattered coarse wheezing throughout ABDOMEN: Soft, nontender. Bowel sounds are heard. No organomegaly noted. EXTREMITIES: 2+ peripheral pulses with no evidence of peripheral edema and no calf tenderness noted. NEUROLOGIC patient is awake, alert and oriented 3 . . Results 01/31/18 19:23 01/31/18 19:23 Cardiac Enzymes 01/31/18 01/31/18 02/01/18 Range/Units 19:23 19:23 01:16 AST 18 (14-36) U/L CK-MB (CK-2) 0.5 (0.0-2.4) ng/mL Troponin I 0.031 0.025 (0.000-0.034) ng/mL Coagulation 01/31/18 Range/Units 19:23 PT 11.6 (9.0-12.0) sec APTT 25.0 (22.0-30.0) sec CBC 01/31/18 Range/Units 19:23 WBC 9.5 (3.8-10.6) k/uL RBC 4.46 (3.80-5.40) m/uL Hgb 11.7 (11.4-16.0) gm/dL Hct 37.8 (34.0-46.0) % Plt Count 271 (150-450) k/uL Comprehensive Metabolic Panel 01/31/18 Range/Units 19:23 Sodium 141 (137-145) mmol/L Potassium 4.0 (3.5-5.1) mmol/L Chloride 110 H (98-107) mmol/L Carbon Dioxide 22 (22-30) mmol/L BUN 9 (7-17) mg/dL Creatinine 0.70 (0.52-1.04) mg/dL Glucose 127 H (74-99) mg/dL Calcium 9.2 (8.4-10.2) mg/dL AST 18 (14-36) U/L ALT 17 (9-52) U/L Alkaline Phosphatase 109 (38-126) U/L Total Protein 6.5 (6.3-8.2) g/dL Albumin 3.8 (3.5-5.0) g/dL Current Medications Generic Name Dose Route Start Last Admin Trade Name Freq PRN Reason Stop Dose Admin Albuterol/Ipratropium 3 ml 02/01/18 00:00 Duoneb 0.5 Mg-3 Mg/3 Ml Soln INHALATION RT-Q4H ASHLEIGH Apixaban 5 mg 02/01/18 09:00 Eliquis PO BID ASHLEIGH Aspirin 81 mg 02/01/18 09:00 Aspirin PO DAILY ASHLEIGH Citalopram Hydrobromide 10 mg 02/01/18 09:00 Celexa PO DAILY ASHLEIGH Ferrous Sulfate 325 mg 01/31/18 22:15 01/31/18 23:41 Feosol PO 325 mg TID ASHLEIGH Administration Furosemide 40 mg 02/01/18 00:00 01/31/18 23:42 Lasix IV 40 mg Q8HR ASHLEIGH Administration Insulin Aspart 0 unit 02/01/18 07:30 02/01/18 06:42 Novolog SQ 8 unit ACHS ASHLEIGH Administration Protocol Magnesium Oxide 400 mg 01/31/18 22:15 01/31/18 23:41 Mag-Ox PO 400 mg TID ASHLEIGH Administration Methylprednisolone Sodium Succinate 60 mg 02/01/18 00:00 02/01/18 00:08 Solu-Medrol IV 60 mg Q6HR ASHLEIGH Administration Mycophenolate Mofetil 1,250 mg 02/01/18 00:00 02/01/18 00:05 Cellcept PO 1,250 mg BID ASHLEIGH Administration Pantoprazole Sodium 40 mg 02/01/18 07:30 02/01/18 06:42 Protonix PO 40 mg [id number]-[id number] ASHLEIGH Administration Pravastatin Sodium 40 mg 02/01/18 21:00 Pravachol PO HS ASHLEIGH Tacrolimus 2 mg 02/01/18 00:00 02/01/18 00:05 Prograf PO 2 mg BID ASHLEIGH Administration Valganciclovir 450 mg 02/01/18 09:00 Valcyte PO QAM ASHLEIGH Intake and Output 01/31/18 02/01/18 02/01/18 22:59 06:59 14:59 Intake Total 450 Balance 450 Intake: Intake, IV Titration 50 Amount cefTRIAXone 1,000 mg In 50 Sodium Chloride 0.9% 50 ml @ 100 mls/hr IVPB ONCE STA Rx#:[id number] Oral 400 Other: Voiding Method Toilet # Voids 2 Weight 71.4 kg 69.2 kg 01/31/18 19:23 01/31/18 19:23 EKG Interpretations (text) EKG shows a sinus tachycardia with incomplete right bundle branch block pattern Assessment and Plan Plan: Assessment and plan #1 congestive heart failure, LV function unknown, BNP level 10,900, BNP level 16 ,600. #2 history of cardiac transplant in 2012 at [facility] #3 hyperlipidemia #4 diabetes #5 COPD #6 low-grade fever, possible tracheobronchitis #7 mildly abnormal troponins, could be secondary to supply and demand mismatch. Patient was noted to have abnormality in troponins on her other admissions here as well. Plan We will obtain records from [facility], continue current dose of IV Lasix. Obtain echocardiogram with Doppler study. Further recommendations to follow. DNP note has been reviewed, I agree with a documented findings and plan of care. Patient was seen and examined.
[2018-02-01] MEDS: ASPIRIN 81 MG PO SCH (08:44)
[2018-02-01] MEDS: FERROUS SULFATE 325 MG TAB PO SCH ×3 (08:44→20:40)
[2018-02-01] MEDS: FUROSEMIDE 10 MG/ML 4 ML VIAL IV SCH ×3 (08:44→20:51)
[2018-02-01] MEDS: MAGNESIUM OXIDE 400 MG TAB PO SCH ×3 (08:44→20:40)
[2018-02-01] MEDS: CITALOPRAM HYDROBROMIDE 10 MG TAB PO SCH (08:44)
[2018-02-01] MEDS ORDERED: TACROLIMUS 0.5 MG CAP PO SCH (09:00)
[2018-02-01] MEDS ORDERED: APIXABAN 5 MG TAB PO SCH (09:00)
[2018-02-01] MEDS ORDERED: MYCOPHENOLATE MOFETIL 250 MG CAP PO SCH (09:00)
[2018-02-01 10:23] VITALS: BMI 26.2
--- NOTE | 2018-02-01 10:56 | ECHOF ---
Referral Reason:chf MEASUREMENTS -------- HEIGHT: 162.6 cm WEIGHT: 68.9 kg BP: 115/75 RVIDd: 2.6 cm (< 3.3) IVSd: 0.9 cm (0.6 - 1.1) LVIDd: 4.1 cm (3.9 - 5.3) LVPWd: 1.0 cm (0.6 - 1.1) IVSs: 1.0 cm LVIDs: 3.3 cm LVPWs: 1.4 cm LAESV Index (A-L): 49.17 ml/m Ao Diam: 2.5 cm (2.0 - 3.7) AV Cusp: 1.5 cm (1.5 - 2.6) LA Diam: 3.9 cm (2.7 - 3.8) MV EXCURSION: 17.310 mm (> 18.000) MV EF SLOPE: 194 mm/s (70 - 150) EPSS: 0.7 cm MV E Narayan: 1.14 m/s MV DecT: 85 ms MV A Narayan: 0.45 m/s MV E/A Ratio: 2.54 AR PHT: 294 ms RAP: 5.00 mmHg RVSP: 43.33 mmHg FINDINGS -------- Resting tachycardia (HR>100bpm). This was a technically good study. The left ventricular size is normal. Left ventricular wall thickness is normal. Overall left vent ricular systolic function is mild-moderately impaired with, an EF between 40 - 45 %. There is parad oxical/dysynergic septal motion consistent with post-operative status. Post heart transplant The right ventricle is normal in size and function. LA is severely dilated >40 ml/m2 The right atrium is normal in size. Aortic valve is trileaflet and is mildly thickened. Trace amount of aortic regurgitation. Fxhbryuo-zf-xzwwil mitral regurgitation is present , predominately a posteriorly directed jet. Severe tricuspid regurgitation present. There is mild pulmonary hypertension. The right ventricul ar systolic pressure, as measured by Doppler, is 43.33mmHg. Trace/mild (physiologic) pulmonic regurgitation. The aortic root size is normal. Normal inferior vena cava with normal inspiratory collapse consistent with estimated right atrial pre ssure of 5 mmHg. There is a trivial pericardial effusion present. CONCLUSIONS -------- 1. Resting tachycardia (HR>100bpm). 2. This was a technically good study. 3. The left ventricular size is normal. 4. Left ventricular wall thickness is normal. 5. Overall left ventricular systolic function is mild-moderately impaired with, an EF between 40 - 45 %. 6. There is paradoxical/dysynergic septal motion consistent with post-operative status. 7. Post heart transplant 8. The right ventricle is normal in size and function. 9. LA is severely dilated >40 ml/m2 10. The right atrium is normal in size. 11. Aortic valve is trileaflet and is mildly thickened. 12. Trace amount of aortic regurgitation. 13. Reowezoo-tr-wvnpvt mitral regurgitation is present. 14. , predominately a posteriorly directed jet. 15. Severe tricuspid regurgitation present. 16. There is mild pulmonary hypertension. 17. The right ventricular systolic pressure, as measured by Doppler, is 43.33mmHg. 18. Trace/mild (physiologic) pulmonic regurgitation. 19. The aortic root size is normal. 20. Normal inferior vena cava with normal inspiratory collapse consistent with estimated right atrial pressure of 5 mmHg. 21. There is a trivial pericardial effusion present. ANSWERING SERVICE TELEPHONE OPERATOR: Dee Lindo RDCS
[2018-02-01 11:55] LABS: Glucose,Whole Blood 164 mg/dL (75-99)
--- NOTE | 2018-02-01 14:20 | P.CNPUL ---
History of Present Illness Consult date: 02/01/18 Requesting physician: Mariusz Carson Reason for consult: dyspnea, cough, COPD Chief complaint: Shortness of breath History of present illness: Pulmonary consult dated 02/01/2018 This is a 57-year-old female presenting with shortness of breath. Patient stated swelling of her abdomen with 10 pound weight gain. Patient admits to having fever, chills with sweats. and cough with white sputum. Patient stated symptoms started 2 days ago. Patient denied chest pain. History of heart failure, hypertension, hyperlipidemia, diabetes, COPD, renal disease, and heart transplant at [facility] in 2012. Patient was a heavy smoker but stopped smoking prior to her heart transplantation. Her heart transplantation was performed by Dr. Marcellus Tomlin at [facility]. LV function mild to moderate impaired with EF between 40-45%. BNP was 10,900 with other labs unremarkable. Chest x-ray showed cardiomegaly with slight prominence of pulmonary vascular markings. Vital signs remained stable with pulse ox is 97% on room air. The patient also admits to heavy tobacco use. Likely in this patient, shortness of breath is multifactorial in part related to heart failure and COPD exacerbation. Of the 2, heart failure is probably more prominent in this patient. Review of Systems All systems: negative Constitutional: Reports sweats, Reports weight gain, Denies chills, Denies fever Eyes: denies blurred vision, denies pain Ears, nose, mouth and throat: Denies headache, Denies sore throat Cardiovascular: Denies chest pain, Denies shortness of breath Respiratory: Reports dyspnea, Denies cough Gastrointestinal: Denies abdominal pain, Denies diarrhea, Denies nausea, Denies vomiting Genitourinary: Denies dysuria, Denies hematuria Musculoskeletal: Denies myalgias Integumentary: Denies pruritus, Denies rash Neurological: Denies numbness, Denies weakness Psychiatric: Denies anxiety, Denies depression Endocrine: Denies fatigue, Denies weight change Past Medical History Past Medical History: Heart Failure, COPD, Diabetes Mellitus, Hyperlipidemia ( Heart transplant in 2012), Hypertension, Renal Disease Additional Past Medical History / Comment(s): heart transplant from [facility] on May 2012. DM due to prednisone taking Januvia at home. History of Any Multi-Drug Resistant Organisms: None Reported Past Surgical History: Cholecystectomy, Hysterectomy, Joint Replacement, Orthopedic Surgery Additional Past Surgical History / Comment(s): heart transplant 2013, sinus, carpal tunnel, left knee replacement. *40 stents in her old heart Past Anesthesia/Blood Transfusion Reactions: No Reported Reaction Past Psychological History: No Psychological Hx Reported Smoking Status: Former smoker Past Alcohol Use History: None Reported Past Drug Use History: None Reported - Past Family History Father Family Medical History: Cancer Additional Family Medical History / Comment(s): melanoma Mother Family Medical History: Cancer Additional Family Medical History / Comment(s): rectal Medications and Allergies Home Medications Medication Instructions Recorded Confirmed Type Aspirin 81 mg PO DAILY 03/28/17 01/31/18 History Citalopram Hydrobromide [CeleXA] 10 mg PO DAILY 03/28/17 01/31/18 History Ferrous Sulfate [Feosol] 325 mg PO TID 03/28/17 01/31/18 History Magnesium Oxide [Mag-Ox] 500 mg PO TID 03/28/17 01/31/18 History Omeprazole 20 mg PO DAILY 03/28/17 01/31/18 History Pravastatin Sodium [Pravachol] 40 mg PO HS 03/28/17 01/31/18 History Tacrolimus [Prograf] 2 mg PO BID 03/28/17 01/31/18 History Allergy Tabotc(Unknown) 1 tab PO DAILY 06/13/17 01/31/18 History Apixaban [Eliquis] 5 mg PO BID 07/17/17 01/31/18 History Mycophenolate Mofetil [Cellcept] 1,250 mg PO BID 07/17/17 01/31/18 History predniSONE 5 mg PO DAILY 07/17/17 01/31/18 History valGANciclovir [Valcyte] 450 mg PO QAM 07/17/17 01/31/18 History Allergies Allergy/AdvReac Type Severity Reaction Status Date / Time morphine Allergy Rash/Hives Verified 02/01/18 09:42 sulfamethoxazole Allergy Dyspnea Verified 02/01/18 09:42 [From Bactrim] trimethoprim [From Bactrim] Allergy Dyspnea Verified 02/01/18 09:42 meperidine [From Demerol] AdvReac Hallucinati Verified 02/01/18 09:42 ons Physical Exam Osteopathic Statement: *. No significant issues noted on an osteopathic structural exam other than those noted in the History and Physical/Consult. Vitals: Vital Signs Temp Pulse Pulse Resp BP BP Pulse Ox 02/01/18 13:22 112 H 02/01/18 12:00 115 H 16 115/72 97 02/01/18 08:44 120 H 02/01/18 08:34 120 H 02/01/18 08:00 98.4 F 110 H 18 117/75 93 L 02/01/18 04:00 98.6 F 114 H 18 115/75 90 L 02/01/18 00:00 99 F 122 H 19 114/76 92 L 01/31/18 22:11 99.1 F 129 H 26 H 114/71 94 L 01/31/18 22:10 98.2 F 130 H 20 124/71 94 L 01/31/18 21:12 133 H 01/31/18 21:03 131 H 01/31/18 20:52 133 H 26 H 115/73 92 L 01/31/18 19:47 134 H 01/31/18 19:39 134 H 133 H 01/31/18 19:37 135 H 22 126/87 93 L 01/31/18 18:54 99.4 F 138 H 20 129/88 92 L Intake and Output 01/31/18 02/01/18 02/01/18 22:59 06:59 14:59 Intake Total 450 240 Balance 450 240 Intake: Intake, IV Titration 50 Amount cefTRIAXone 1,000 mg In 50 Sodium Chloride 0.9% 50 ml @ 100 mls/hr IVPB ONCE STA Rx#:[id number] Oral 400 240 Other: Voiding Method Toilet Toilet # Voids 2 Weight 71.4 kg 69.2 kg 69.2 kg No acute distress, oriented 3. HEENT examination is grossly unremarkable. Mucous membranes are moist. No oral lesions. Neck supple. Full range of motion. No adenopathy thyromegaly or neck vein distention. Cardiovascular examination reveals regular rhythm rate. S1-S2 with faint systolic murmur. No S3 or S4. Lungs reveal inspiratory fine crackles and a few expiratory wheezes equal bilaterally. No rhonchi. Abdomen soft, rounded, bowel sounds are heard. No masses or tenderness. Extremities are intact. +2 pulses palpated in all 4 extremities. No cyanosis clubbing or edema. Skin is without rash or lesion. Neurologic examination is brief but nonfocal. Results - Laboratory Findings CBC and BMP: 01/31/18 19:23 01/31/18 19:23 PT/INR, D-dimer PT 11.6 sec (9.0-12.0) 01/31/18 19:23 INR 1.2 (<1.2) H 01/31/18 19:23 Abnormal lab findings: Abnormal Labs 01/31/18 01/31/18 01/31/18 19:23 19:23 19:23 RDW 16.5 H Neutrophils # 7.9 H Lymphocytes # 0.9 L INR 1.2 H Chloride 110 H Glucose 127 H POC Glucose (mg/dL) 01/31/18 02/01/18 02/01/18 23:13 06:12 11:49 RDW Neutrophils # Lymphocytes # INR Chloride Glucose POC Glucose (mg/dL) 182 H 247 H 164 H - Diagnostic Findings Chest x-ray: report reviewed, image reviewed (EKG and echo reviewed.) Additional studies: EKG and echocardiogram reviewed. Assessment and Plan Assessment: Assessment/plan #1 COPD exacerbation, will continue DuoNeb nebulizer every 4 hours and Solu- Medrol 60 every 6 hours IV. Will add Symbicort 160/4.5 2 puffs twice a day. #2 CHF with LV dysfunction. EF 40-45%. BNP level 10,900. Will continue Lasix 40 every 8 hours IV. #3 History of heart transplant secondary to ischemic cardiomyopathy, will continue on antirejection meds. #4 Diabetes will continue NovoLog sliding scale insulin before meals AC/HS. #5 history of severe cardiomyopathy requiring left ventricular assist device, prior to heart transplantation #6 Previous history of CVA Plan: Plan dated 02/01/2018 Please see the assessment/plan detailed in the prior segment. Time with Patient: Greater than 30
[2018-02-01 16:33] LABS: Glucose,Whole Blood 310 mg/dL (75-99)
[2018-02-01] MEDS ORDERED: NALOXONE 0.4 MG/ML 1 ML VIAL IV PRN (19:27)
[2018-02-01] MEDS ORDERED: LACTULOSE 20 GM/30 ML CUP PO PRN (19:27)
[2018-02-01] MEDS ORDERED: MAGNESIUM HYDROXIDE 2,400 MG/10 ML CUP PO PRN (19:27)
[2018-02-01] MEDS ORDERED: MELATONIN 3 MG TABLET PO PRN (19:27)
[2018-02-01] MEDS ORDERED: ONDANSETRON 4 MG/2 ML VIAL IVP PRN (19:27)
[2018-02-01] MEDS ORDERED: LORazepam 0.5 MG TAB PO PRN (19:27)
[2018-02-01] MEDS ORDERED: CALCIUM CARBONATE 500 MG CHEWABLE PO PRN (19:27)
[2018-02-01] MEDS ORDERED: ACETAMINOPHEN TAB 325 MG TAB PO PRN (19:27)
[2018-02-01 20:26] LABS: Glucose,Whole Blood 207 mg/dL (75-99)
[2018-02-01] MEDS: ENOXAPARIN 40 MG/0.4 ML SYRINGE SQ SCH (20:37)
--- NOTE | 2018-02-01 20:37 | HP ---
HISTORY AND PHYSICAL DATE OF ADMISSION: 01/31/2018 DATE OF SERVICE: 02/01/2018. PRESENTING COMPLAINT: Short of breath. HISTORY OF PRESENTING COMPLAINT: A very pleasant 57-year-old patient who follows with Dr. Guillen. Chronic stable medical conditions include diabetes, steroid induced; hypertension, heart transplant. The patient had a heart transplant in 2012 at [facility]. Had the last echo about a month ago. Everything has been stable. The patient now presents with 2 days of worsening short of breath. Has a baseline chronic cough, presented with fevers, feeling tired, run down. No chills. Bringing up white phlegm. Appetite has been okay. No edema. The patient did not have any edema. The patient is felt to have both a combination of CHF and COPD exacerbation. BNP was greater than 10,000s. Started on IV Lasix in the ER and also bronchodilators steroids. REVIEW OF SYSTEMS: CONSTITUTIONAL: Fever, rundown, tired. HEENT: None. RESPIRATORY: As above. CARDIOVASCULAR: As above. GASTROINTESTINAL: None. GENITOURINARY: None. MUSCULOSKELETAL: None. DERMATOLOGICAL, HEMATOLOGIC, LYMPHATICS none. PSYCHIATRY: None. NEUROLOGICAL: None. PAST MEDICAL HISTORY: Congestive heart failure, COPD, diabetes, steroid induced hyperlipidemia, hypertension, renal disease, [facility] had a heart transplant heart transplant 2012. PAST SURGICAL HISTORY: Surgical history includes cholecystectomy, hysterectomy, joint replacement, heart transplant, carpal tunnel, left knee replacement, close to 40 stents in the old heart. SOCIAL HISTORY: The patient smoked up to 2 packs a day for 37 years, stopped 7 years ago. Lives with her sister. FAMILY HISTORY: Melanoma. HOME MEDICATIONS: 1. Valcyte 900 mg in the morning and 500 mg in the morning. 2. Prednisone 5 mg a day. 3. Ambien 10 mg p.o. q.h.s. p.r.n. 4. Chantix 1 mg p.o. b.i.d. 5. Prograf 2.5 mg at night, 2 mg in the morning. 6. Pravachol 40 mg q.h.s. 7. Potassium 10 mEq a day. 8. Omeprazole 20 mg p.o. daily. 9. Procardia XL 60 mg p.o. daily. 10.CellCept 1250 mg p.o. b.i.d. 11.Multivitamin 1 tablet p.o. daily. 12.Magnesium oxide 400 mg p.o. daily. 13.Zestril 5 mg p.o. daily. 14.DuoNeb q.6h p.r.n. 15.[place]ano 5 one tablet q.8h p.r.n. 16.Iron 325 p.o. t.i.d. 17.Jardiance 25 mg p.o. daily. 18.Flexeril 10 mg p.o. q.8. 19.Celexa 20 mg p.o. daily. 20.Aspirin 81 mg p.o. daily. 21.Eliquis 5 mg p.o. b.i.d. 22.Ventolin HFA 2 puffs q.4 p.r.n. 23. 1 tablet p.o. daily. ALLERGIES: TO MORPHINE, BACTRIM, DEMEROL. PHYSICAL EXAMINATION: VITAL SIGNS ON PRESENTATION: Temperature 99.4, pulse 138, respiration rate 20, blood pressure 120/80, pulse ox 92 percent on room air. GENERAL APPEARANCE: Average build, lying in bed, tired-appearing. EYES: Pupils equal. Conjunctivae normal. HEENT: External appearance of nose and ears normal. Oral cavity normal. NECK: JVD possibly raised. Mass not palpable. RESPIRATORY: Effort increased. LUNGS: Decreased breath sounds. Prolonged expiration. Some wheezing. CARDIOVASCULAR: First and second sounds normal. No edema. ABDOMEN: Soft, nontender. Liver and spleen not palpable. LYMPHATICS: No lymph nodes palpable in the neck and axillae. PSYCHIATRY: Alert and oriented x3. Mood and affect normal. NEUROLOGICAL: Pupils equal. Cranial nerves grossly intact. Power and sensation grossly intact. INVESTIGATIONS: White count 9.5, hemoglobin 11.7, platelets 271, potassium 4.2 BUN and creatinine normal. Troponin 0.031, 0.025. NT proBNP 10,900. EKG tracing personally reviewed by me shows sinus tachycardia. Chest x-ray film, personally reviewed by me shows cardiomegaly, venous prominence, some basilar infiltrates. ASSESSMENT: 1. Acute congestive heart failure exacerbation from diastolic dysfunction, ejection fraction 40-45 percent in a transplant heart. 2. Acute chronic obstructive pulmonary disease exacerbation in an ex-smoker. 3. Acute pneumonitis, likely viral, does not appear to be bacterial infection. 4. Steroid induced diabetes. 5. Essential hypertension. 6. Moderate to severe mitral regurgitation and severe tricuspid regurgitation in a transplanted heart. PLAN: Patient is started on IV Lasix. Home medications are resumed. Also put on bronchodilators, IV Solu-Medrol, I's and O's will be followed. Care was discussed with the patient. Questions were answered. Consultations made to Pulmonary and Cardiology. Copy to Dr. Guillen. MMJANNETHL / GAVINON: [id number] /
[2018-02-01] MEDS: TACROLIMUS 0.5 MG CAP PO SCH (20:38)
[2018-02-01] MEDS: PRAVASTATIN SODIUM 40 MG TAB PO SCH (20:39)
[2018-02-01] MEDS: SYMBICORT 160-4.5 MCG INHALER INHALATION SCH (21:28)
[2018-02-02] MEDS: IPRATROPIUM-ALBUTEROL 3 ML NEB INHALATION SCH ×6 (01:21→19:10)
[2018-02-02] MEDS: methylPREDNISolone SOD SUCCI 125 MG/2 ML VIAL IV SCH ×3 (05:25→12:08)
[2018-02-02 05:38] LABS: Glucose,Whole Blood 161 mg/dL (75-99)
[2018-02-02 06:18] LABS: Anisocytosis Slight; Basophils % (A) 0 %; Eosinophils % (A) 0 %; HCT 35.7 % (34.0-46.0); HGB 11.1 gm/dL (11.4-16.0); Hypochromasia Moderate; Lymphocytes # (A) 0.9 k/uL (1.0-4.8); Lymphocytes % (A) 7 %; MCH 26.1 pg (25.0-35.0); MCHC 31.2 g/dL (31.0-37.0); MCV 83.8 fL (80.0-100.0); Mean Platelet Volume 7.3; Monocytes # (A) 0.5 k/uL (0-1.0); Monocytes % (A) 4 %; Neutrophils # (A) 11.8 k/uL (1.3-7.7); Neutrophils % (A) 88 %; Platelet Count 274 k/uL (150-450); RBC 4.26 m/uL (3.80-5.40); RDW 16.3 % (11.5-15.5); WBC 13.4 k/uL (3.8-10.6)
[2018-02-02] MEDS: PANTOPRAZOLE 40 MG TABLET PO SCH (06:23)
[2018-02-02] MEDS: INSULIN ASPART 100 UNIT/ML 1 ML 10 ML VIAL SQ SCH ×4 (06:23→20:48)
[2018-02-02 06:30] LABS: Calcium 9.3 mg/dL (8.4-10.2); Potassium 3.6 mmol/L (3.5-5.1)
[2018-02-02] MEDS: SYMBICORT 160-4.5 MCG INHALER INHALATION SCH ×2 (07:31→19:11)
[2018-02-02] MEDS: MYCOPHENOLATE MOFETIL 250 MG CAP PO SCH ×2 (09:44→21:51)
[2018-02-02] MEDS: CITALOPRAM HYDROBROMIDE 10 MG TAB PO SCH (09:44)
[2018-02-02] MEDS: ASPIRIN 81 MG PO SCH (09:44)
[2018-02-02] MEDS: FERROUS SULFATE 325 MG TAB PO SCH ×3 (09:44→20:43)
[2018-02-02] MEDS: TACROLIMUS 1 MG CAP PO SCH ×2 (09:44→21:51)
[2018-02-02] MEDS: MAGNESIUM OXIDE 400 MG TAB PO SCH ×3 (09:44→20:43)
[2018-02-02] MEDS: ENOXAPARIN 40 MG/0.4 ML SYRINGE SQ SCH (09:45)
[2018-02-02] MEDS: FUROSEMIDE 10 MG/ML 4 ML VIAL IV SCH (11:27)
[2018-02-02 11:48] LABS: Glucose,Whole Blood 224 mg/dL (75-99)
[2018-02-02] MEDS: METOPROLOL SUCCINATE (ER) 25 MG TAB.ER.24H PO SCH (12:07)
--- NOTE | 2018-02-02 12:34 | P.PN ---
Subjective Progress Note Date: 02/02/18 This is a pleasant 57-year-old female who has history of heart transplant in 2013 for which she follows with [facility], she also has history of COPD, hyperlipidemia, diabetes, history of renal failure,. Nonsmoker. According to the patient, she noticed from one day to the next that she had put on approximately 10 pounds in weight, she states that she was quite short of breath and noticed some mild peripheral edema. According to her, she been feeling well the days prior not having any shortness of breath, she does state over the past few days prior to admission she had been running a fever of around 100 at home. Chest x-ray on admission here showed cardiomegaly with slight prominence of pulmonary vascular markings. Her EKG on presentation here showed a sinus tachycardia with incomplete right bundle branch block pattern. Blood pressure on arrival here 128/80, heart rate 1:30, temperature 99.4, 92% on room air. White blood cell count 9.5, hemoglobin 11.7, platelet count 271. Sodium 141, potassium 4.0, BUN 9, creatinine 0.7. Magnesium level I.7. AST and ALT are normal. Troponin 0.031, 0.025, and 0.024. BNP level 10,900. Patient was initiated on IV Lasix in the emergency room, she's diuresed well since her arrival here. Patient's home medications include aspirin 81 mg daily , Eliquis 5 mg twice a day, magnesium, iron, Celexa, Pravachol 40 mg daily, omeprazole, CellCept, Prograf, prednisone 5 mg daily and Valcyte. She has been on Lasix 40mg IVP q12 hours. Echocardiogram with Doppler showed mild to moderately impaired LV systolic function with ejection fraction 40-45%, severely dilated LA, trace amount of aortic regurgitation, moderate to severe mitral regurgitation, severe tricuspid regurgitation and mild pulmonary hypertension. Her blood pressure is somewhat low this morning in the 90s systolic. Upon examination, patient is resting comfortably in bed. Her breathing is much improved. She denies orthopnea or CLAUDIO. She showered this morning without difficulty. Objective - Vital Signs Vital signs: Vital Signs Temp 98.8 F 02/02/18 09:44 Pulse 110 H 02/02/18 11:42 Resp 16 02/02/18 11:42 BP 98/54 02/02/18 09:44 Pulse Ox 94 L 02/02/18 09:44 Intake & Output 02/01/18 02/02/18 02/02/18 18:59 06:59 18:59 Intake Total 240 240 Output Total 1900 300 Balance 240 -1900 -60 Weight 69.2 kg 69.5 kg Intake: Oral 240 240 Output: Urine 1900 300 Other: Voiding Method Toilet Toilet Toilet # Voids 2 - Exam PHYSICAL EXAMINATION: GENERAL: 57-year-old female in no acute distress at the time of my examination HEENT: Head is atraumatic, normocephalic. Pupils equal, round. Sclera anicteric. Conjunctiva are clear. Mucous membranes of the mouth are moist. Neck is supple. There is no elevated jugular venous pressure. No carotid bruit is heard. HEART EXAMINATION: Heart regular, S1 and S2 systolic murmur is heard. CHEST EXAMINATION: Lungs reveal scattered coarse wheezing throughout ABDOMEN: Soft, nontender. Bowel sounds are heard. No organomegaly noted. EXTREMITIES: 2+ peripheral pulses with no evidence of peripheral edema and no calf tenderness noted. NEUROLOGIC patient is awake, alert and oriented 3 . - Labs CBC & Chem 7: 02/02/18 05:49 02/02/18 05:49 Labs: Abnormal Lab Results - Last 24 Hours (Table) 02/01/18 02/01/18 02/02/18 Range/Units 16:21 20:24 05:37 WBC (3.8-10.6) k/uL Hgb (11.4-16.0) gm/dL RDW (11.5-15.5) % Neutrophils # (1.3-7.7) k/uL Lymphocytes # (1.0-4.8) k/uL BUN (7-17) mg/dL Glucose (74-99) mg/dL POC Glucose (mg/dL) 310 H 207 H 161 H (75-99) mg/dL 02/02/18 02/02/18 02/02/18 Range/Units 05:49 05:49 11:42 WBC 13.4 H (3.8-10.6) k/uL Hgb 11.1 L (11.4-16.0) gm/dL RDW 16.3 H (11.5-15.5) % Neutrophils # 11.8 H (1.3-7.7) k/uL Lymphocytes # 0.9 L (1.0-4.8) k/uL BUN 27 H (7-17) mg/dL Glucose 150 H (74-99) mg/dL POC Glucose (mg/dL) 224 H (75-99) mg/dL Microbiology - Last 24 Hours (Table) 01/31/18 19:23 Blood Culture - Preliminary Blood No Growth after 24 hours Assessment and Plan Assessment: #1 acute on chronic congestive heart failure, LV function mild to moderately impaired with EF 40-45%, BNP level 10,900. #2 history of cardiac transplant in 2013 at [facility] #3 hyperlipidemia #4 diabetes #5 COPD #6 low-grade fever, possible tracheobronchitis #7 mildly abnormal troponins, could be secondary to supply and demand mismatch. Patient was noted to have abnormality in troponins on her other admissions here as well. Plan: Mixing Tank Operator perspective, we will switch the patient to by mouth Lasix. We will start metoprolol succinate 25 mg daily. We will continue to monitor blood pressures and possibly resume LUCA inhibitor tomorrow. We'll continue to follow the patient and provide further recommendations according. SORTING MACHINE OPERATOR note has been reviewed, I agree with a documented findings and plan of care. Patient was seen and examined.
--- NOTE | 2018-02-02 13:43 | P.PN ---
Subjective Progress Note Date: 02/02/18 Principal diagnosis: Shortness of breath, secondary to heart failure and COPD Progress note dated 02/02/2018 57-year-old female who was admitted with a diagnosis of shortness of breath. Shortness of breath was multifactorial including heart failure as well as COPD exacerbation. Her N-terminal proBNP was 10,900. Anyway, she is on all the appropriate medications including DuoNeb, systemic corticosteroids, and Symbicort. In addition, she is on Lasix 40 mg every 8 hours IV push. The patient is doing much better. She is much less short of breath. She also has a significant history of heart transplantation about 5 years ago. This is because of ischemic cardiomyopathy. In addition, she has history of diabetes and previous CVA. For a period of time, she was on the left ventricular assist device. She is hoping to be discharged tomorrow. She is much improved though. Most of her shortness of breath related to fluid overload. Objective - Vital Signs Vital signs: Vital Signs Temp 98 F 02/02/18 12:00 Pulse 118 H 02/02/18 12:00 Resp 18 02/02/18 12:00 BP 115/67 02/02/18 12:00 Pulse Ox 93 L 02/02/18 12:00 Intake & Output 02/01/18 02/02/18 02/02/18 18:59 06:59 18:59 Intake Total 240 480 Output Total 1900 300 Balance 240 -1900 180 Weight 69.2 kg 69.5 kg Intake: Oral 240 480 Output: Urine 1900 300 Other: Voiding Method Toilet Toilet Toilet # Voids 2 - Exam No acute distress, oriented 3. Not on any supplemental oxygen. No amanda respiratory distress. HEENT examination is grossly unremarkable. Mucous membranes are moist. No oral lesions. Neck supple. Full range of motion. No adenopathy thyromegaly or neck vein distention. Cardiovascular examination reveals regular rhythm rate. S1-S2 normal. No S3 or S4. No discernible murmur noted. Heart sounds are distant. Lungs reveal coarse bilateral rhonchi and a few expiratory wheezes. There is also significant crackles at the bases. Breath sounds are equal bilaterally but diminished throughout. Lung sounds are improved today compared to yesterday 's exam. Abdomen soft bowel sounds are heard. No masses or tenderness. Extremities are intact. No cyanosis clubbing or edema. Skin is without rash or lesion. Neurologic examination is brief but nonfocal. - Labs CBC & Chem 7: 02/02/18 05:49 02/02/18 05:49 Labs: Abnormal Lab Results - Last 24 Hours (Table) 02/01/18 02/01/18 02/02/18 Range/Units 16:21 20:24 05:37 WBC (3.8-10.6) k/uL Hgb (11.4-16.0) gm/dL RDW (11.5-15.5) % Neutrophils # (1.3-7.7) k/uL Lymphocytes # (1.0-4.8) k/uL BUN (7-17) mg/dL Glucose (74-99) mg/dL POC Glucose (mg/dL) 310 H 207 H 161 H (75-99) mg/dL 02/02/18 02/02/18 02/02/18 Range/Units 05:49 05:49 11:42 WBC 13.4 H (3.8-10.6) k/uL Hgb 11.1 L (11.4-16.0) gm/dL RDW 16.3 H (11.5-15.5) % Neutrophils # 11.8 H (1.3-7.7) k/uL Lymphocytes # 0.9 L (1.0-4.8) k/uL BUN 27 H (7-17) mg/dL Glucose 150 H (74-99) mg/dL POC Glucose (mg/dL) 224 H (75-99) mg/dL Microbiology - Last 24 Hours (Table) 01/31/18 19:23 Blood Culture - Preliminary Blood No Growth after 24 hours Assessment and Plan Assessment: Assessment Shortness of breath, multifactorial, in part related to CHF as well as COPD exacerbation. History of COPD from significant tobacco abuse. History of ischemic cardiomyopathy, status post heart transplantation some 5 years ago History of previous left ventricular assist device use History of LV dysfunction, with an ejection fraction of 40-45% History of diabetes mellitus History of CVA Plan: Plan dated 02/02/2018 The patient is doing much better. She remains on the medications for both COPD and CHF. Her N-terminal proBNP was quite elevated on admission. She is receiving IV Lasix. In addition, she was feeling short acting beta agonist, short acting muscarinic antagonist, long-acting beta agonist, and inhaled corticosteroids. She is also receiving systemic corticosteroids. She is much improved. She is hoping to be discharged in a day or 2. No additional recommendations are made. Prognosis is guarded. Time with Patient: Less than 30
--- NOTE | 2018-02-02 14:12 | XR ---
EXAMINATION TYPE: XR chest 2V DATE OF EXAM: 02/02/2018 COMPARISON: Chest x-ray from 2 days ago. CTA chest June 14, 2017. HISTORY: History of COPD and hypertension with difficulty in breathing. TECHNIQUE: Frontal and lateral views of the chest are obtained. FINDINGS: Post-CABG changes with mediastinal clips and sternal wires is redemonstrated There is chron ic parenchymal change without suspicious new focal air space opacity, pleural effusion, or pneumothor ax seen. The cardiac silhouette size remains enlarged. Additional clips left upper thorax are redemo nstrated The osseous structures remain somewhat demineralized. IMPRESSION: Chronic changes and cardiomegaly without acute pulmonary process. No significant change from prior studies.
[2018-02-02 17:12] LABS: Glucose,Whole Blood 226 mg/dL (75-99)
[2018-02-02] MEDS: methylPREDNISolone SOD SUCCI 40 MG/ML 1 ML VIAL IV SCH ×2 (17:29→23:39)
[2018-02-02] MEDS: FUROSEMIDE 20 MG TAB PO SCH (17:29)
--- NOTE | 2018-02-02 19:48 | PN ---
PROGRESS NOTE DATE OF SERVICE: 02/02/2018. PRESENTING COMPLAINT: Short of breath. INTERVAL HISTORY: This is a patient with heart transplant 2013 at [facility], presented with acute COPD exacerbation from viral pneumonitis and acute CHF exacerbation on IV Lasix, bronchodilators and steroids, breathing is better. Tolerating a diet. Sitting on her bed. No fever. No chills. REVIEW OF SYSTEMS: Done for constitutional, cardiovascular, GI, pulmonary; relevant findings as above. CURRENT MEDICATIONS: Reviewed that include DuoNeb, IV Solu-Medrol, IV Lasix has been switched to p.o. today. PHYSICAL EXAMINATION: VITAL SIGNS: Temperature 98, pulse 118, respiration 18, blood pressure 105/67, pulse ox 93 percent on room air. LUNGS: Decreased breath sounds. Prolonged expiration. Mild wheezing. CARDIOVASCULAR: First and second sounds normal. No edema. ABDOMEN: Soft, nontender. Liver and spleen not palpable. PSYCHIATRY: Alert and oriented x3. Mood and affect normal. INVESTIGATIONS: White count 13.4, potassium 3.6, BUN 27, creatinine 0.95. ProBNP 10,900. ASSESSMENT: 1. Acute congestive heart failure exacerbation from systolic and diastolic dysfunction in a transplanted heart. EF 40-45 percent with clinical response. 2. Acute chronic obstructive pulmonary disease exacerbation in an ex-smoker. 3. Acute pneumonitis, likely viral, does not appear to be bacterial. 4. Steroid induced diabetes. 5. Essential hypertension. 6. Moderate to severe mitral regurgitation and severe tricuspid regurgitation, in a transplanted heart. PLAN: Patient doing better. Switched over to p.o. Lasix. Will cut back on Solu-Medrol, bronchodilators continued. Care was discussed with the patient. Follow. MMODL / IJN: [id number] /
[2018-02-02] MEDS: PRAVASTATIN SODIUM 40 MG TAB PO SCH (20:43)
[2018-02-02 20:47] LABS: Glucose,Whole Blood 266 mg/dL (75-99)
[2018-02-02] MEDS: TACROLIMUS 0.5 MG CAP PO SCH (21:18)
[2018-02-02] MEDS ORDERED: ZOLPIDEM 5 MG TAB PO PRN (22:47)
[2018-02-03] MEDS: IPRATROPIUM-ALBUTEROL 3 ML NEB INHALATION SCH ×4 (01:20→11:50)
[2018-02-03] MEDS: PANTOPRAZOLE 40 MG TABLET PO SCH (06:26)
[2018-02-03 06:33] LABS: Glucose,Whole Blood 256 mg/dL (75-99)
[2018-02-03 06:42] LABS: Calcium 9.3 mg/dL (8.4-10.2); Potassium 4.2 mmol/L (3.5-5.1)
[2018-02-03] MEDS: INSULIN ASPART 100 UNIT/ML 1 ML 10 ML VIAL SQ SCH ×2 (06:44→12:13)
[2018-02-03] MEDS: SYMBICORT 160-4.5 MCG INHALER INHALATION SCH (08:09)
[2018-02-03] MEDS: methylPREDNISolone SOD SUCCI 40 MG/ML 1 ML VIAL IV SCH (08:57)
[2018-02-03] MEDS: ASPIRIN 81 MG PO SCH (08:58)
[2018-02-03] MEDS: MAGNESIUM OXIDE 400 MG TAB PO SCH (08:58)
[2018-02-03] MEDS: METOPROLOL SUCCINATE (ER) 25 MG TAB.ER.24H PO SCH (08:58)
[2018-02-03] MEDS: CITALOPRAM HYDROBROMIDE 10 MG TAB PO SCH (08:58)
[2018-02-03] MEDS: ENOXAPARIN 40 MG/0.4 ML SYRINGE SQ SCH (08:58)
[2018-02-03] MEDS: FUROSEMIDE 20 MG TAB PO SCH (08:58)
[2018-02-03] MEDS: FERROUS SULFATE 325 MG TAB PO SCH (08:58)
[2018-02-03] MEDS: TACROLIMUS 1 MG CAP PO SCH (09:00)
[2018-02-03] MEDS: MYCOPHENOLATE MOFETIL 250 MG CAP PO SCH (09:00)
[2018-02-03] MEDS ORDERED: LISINOPRIL 5 MG TAB PO SCH (11:15)
[2018-02-03 11:24] VITALS: BP 116/72; RESP 20; TEMP 98
[2018-02-03 11:43] LABS: Glucose,Whole Blood 137 mg/dL (75-99)
[2018-02-03 12:03] VITALS: PULSE 112
--- NOTE | 2018-02-03 12:19 | P.PN ---
Subjective Progress Note Date: 02/03/18 This is a pleasant 57-year-old female who has history of heart transplant in 2013 for which she follows with [facility], she also has history of COPD, hyperlipidemia, diabetes, history of renal failure,. Nonsmoker. According to the patient, she noticed from one day to the next that she had put on approximately 10 pounds in weight, she states that she was quite short of breath and noticed some mild peripheral edema. According to her, she been feeling well the days prior not having any shortness of breath, she does state over the past few days prior to admission she had been running a fever of around 100 at home. Chest x-ray on admission here showed cardiomegaly with slight prominence of pulmonary vascular markings. Her EKG on presentation here showed a sinus tachycardia with incomplete right bundle branch block pattern. Blood pressure on arrival here 128/80, heart rate 1:30, temperature 99.4, 92% on room air. White blood cell count 9.5, hemoglobin 11.7, platelet count 271. Sodium 141, potassium 4.0, BUN 9, creatinine 0.7. Magnesium level I.7. AST and ALT are normal. Troponin 0.031, 0.025, and 0.024. BNP level 10,900. Patient was initiated on IV Lasix in the emergency room, she's diuresed well since her arrival here. Patient's home medications include aspirin 81 mg daily , Eliquis 5 mg twice a day, magnesium, iron, Celexa, Pravachol 40 mg daily, omeprazole, CellCept, Prograf, prednisone 5 mg daily and Valcyte. She has been on Lasix 40mg IVP q12 hours. Echocardiogram with Doppler showed mild to moderately impaired LV systolic function with ejection fraction 40-45%, severely dilated LA, trace amount of aortic regurgitation, moderate to severe mitral regurgitation, severe tricuspid regurgitation and mild pulmonary hypertension. Her blood pressure is somewhat low this morning in the 90s systolic. Upon examination, patient is resting comfortably in bed. Her breathing is much improved. She denies orthopnea or CLAUDIO. She is tolerating dose of metoprolol succinate 25 mg daily that was started yesterday. He does complain of a cough with yellow sputum today. Objective - Vital Signs Vital signs: Vital Signs Temp 98 F 02/03/18 11:24 Pulse 112 H 02/03/18 12:02 Resp 20 02/03/18 11:24 BP 116/72 02/03/18 11:24 Pulse Ox 93 L 02/03/18 11:24 Intake & Output 02/02/18 02/03/18 02/03/18 18:59 06:59 18:59 Intake Total 720 240 Output Total 600 900 Balance 120 -660 Weight 69 kg Intake: Oral 720 240 Output: Urine 600 900 Other: Voiding Method Toilet Toilet Toilet # Voids 1 1 1 # Bowel Movements 4 1 - Exam PHYSICAL EXAMINATION: GENERAL: 57-year-old female in no acute distress at the time of my examination HEENT: Head is atraumatic, normocephalic. Pupils equal, round. Sclera anicteric. Conjunctiva are clear. Mucous membranes of the mouth are moist. Neck is supple. There is no elevated jugular venous pressure. No carotid bruit is heard. HEART EXAMINATION: Heart regular, S1 and S2 systolic murmur is heard. CHEST EXAMINATION: Lungs reveal scattered coarse expiratory wheezing throughout. ABDOMEN: Soft, nontender. Bowel sounds are heard. No organomegaly noted. EXTREMITIES: 2+ peripheral pulses with no evidence of peripheral edema and no calf tenderness noted. NEUROLOGIC patient is awake, alert and oriented 3 . - Labs CBC & Chem 7: 02/02/18 05:49 02/03/18 06:05 Labs: Abnormal Lab Results - Last 24 Hours (Table) 02/02/18 02/02/18 02/03/18 Range/Units 17:03 20:46 06:05 BUN 34 H (7-17) mg/dL Glucose 211 H (74-99) mg/dL POC Glucose (mg/dL) 226 H 266 H (75-99) mg/dL 02/03/18 02/03/18 Range/Units 06:32 11:17 BUN (7-17) mg/dL Glucose (74-99) mg/dL POC Glucose (mg/dL) 256 H 137 H (75-99) mg/dL Microbiology - Last 24 Hours (Table) 01/31/18 19:23 Blood Culture - Preliminary Blood No Growth after 48 hours Assessment and Plan Assessment: #1 acute on chronic congestive heart failure, LV function mild to moderately impaired with EF 40-45%, BNP level 10,900. #2 history of cardiac transplant in 2013 at [facility] #3 hyperlipidemia #4 diabetes #5 COPD #6 low-grade fever, possible tracheobronchitis #7 mildly abnormal troponins, could be secondary to supply and demand mismatch. Patient was noted to have abnormality in troponins on her other admissions here as well. Plan: From Cardiologiy's perspective, continue oral Lasix 20 mg twice a day, increase metoprolol succinate to 25 mg by mouth twice daily and resume home dose of lisinopril 5 mg by mouth daily. From out standpoint, patient may be discharged home. Patient will follow-up with her primary dental coordinator out of [facility]. HOLLOW TILE PARTITION ERECTOR note has been reviewed, I agree with a documented findings and plan of care. Patient was seen and examined.
--- NOTE | 2018-02-03 13:30 | P.PN ---
Subjective Progress Note Date: 02/03/18 Principal diagnosis: Shortness of breath, secondary to heart failure and COPD Progress note dated 02/02/2018 57-year-old female who was admitted with a diagnosis of shortness of breath. Shortness of breath was multifactorial including heart failure as well as COPD exacerbation. Her N-terminal proBNP was 10,900. Anyway, she is on all the appropriate medications including DuoNeb, systemic corticosteroids, and Symbicort. In addition, she is on Lasix 40 mg every 8 hours IV push. The patient is doing much better. She is much less short of breath. She also has a significant history of heart transplantation about 5 years ago. This is because of ischemic cardiomyopathy. In addition, she has history of diabetes and previous CVA. For a period of time, she was on the left ventricular assist device. She is hoping to be discharged tomorrow. She is much improved though. Most of her shortness of breath related to fluid overload. Progress note dated 02/03/2018 57-year-old female who was admitted with a diagnosis of shortness of breath. Her shortness of breath was likely multifactorial in part related to underlying heart failure as well as COPD exacerbation. We feel that her shortness of breath was more related to her fluid overload state and her COPD but certainly both contributed to her symptoms. She is feeling much better and she states that she may be discharged home soon. Her initial N-terminal proBNP was 10, 900. She's on appropriate medications including DuoNeb systemic corticosteroids and Symbicort. In addition she is getting Lasix. I did contact her heart transplant surgeon at [facility] to let him know that she was here. She gets most of her care there. Her heart transplantation to place 5 years ago. She received a heart transplant because of ischemic cardiomyopathy. She also has a history of diabetes and previous CVA. Objective - Vital Signs Vital signs: Vital Signs Temp 98 F 02/03/18 11:24 Pulse 112 H 02/03/18 12:02 Resp 20 02/03/18 11:24 BP 116/72 02/03/18 11:24 Pulse Ox 93 L 02/03/18 11:24 Intake & Output 02/02/18 02/03/18 02/03/18 18:59 06:59 18:59 Intake Total 720 240 Output Total 600 900 Balance 120 -660 Weight 69 kg Intake: Oral 720 240 Output: Urine 600 900 Other: Voiding Method Toilet Toilet Toilet # Voids 1 1 1 # Bowel Movements 4 1 - Exam No acute distress, oriented 3. Not on any supplemental oxygen. No amanda respiratory distress. Currently, the patient is receiving a breathing treatment HEENT examination is grossly unremarkable. Mucous membranes are moist. No oral lesions. Neck supple. Full range of motion. No adenopathy thyromegaly or neck vein distention. Cardiovascular examination reveals regular rhythm rate. S1-S2 normal. No S3 or S4. No discernible murmur noted. Heart sounds are distant. Lungs reveal coarse bilateral rhonchi and a few expiratory wheezes. There is also significant crackles at the bases. Breath sounds are equal bilaterally but diminished throughout. Today's evaluation shows evidence of ongoing crackles at the bases and a few scattered rhonchi but all in all, lung sounds are much improved. Abdomen soft bowel sounds are heard. No masses or tenderness. Extremities are intact. No cyanosis clubbing or edema. Skin is without rash or lesion. Neurologic examination is brief but nonfocal. - Labs CBC & Chem 7: 02/02/18 05:49 02/03/18 06:05 Labs: Abnormal Lab Results - Last 24 Hours (Table) 02/02/18 02/02/18 02/03/18 Range/Units 17:03 20:46 06:05 BUN 34 H (7-17) mg/dL Glucose 211 H (74-99) mg/dL POC Glucose (mg/dL) 226 H 266 H (75-99) mg/dL 02/03/18 02/03/18 Range/Units 06:32 11:17 BUN (7-17) mg/dL Glucose (74-99) mg/dL POC Glucose (mg/dL) 256 H 137 H (75-99) mg/dL Microbiology - Last 24 Hours (Table) 01/31/18 19:23 Blood Culture - Preliminary Blood No Growth after 48 hours Assessment and Plan Assessment: Assessment Shortness of breath, multifactorial, in part related to CHF as well as COPD exacerbation. History of COPD from significant tobacco abuse. History of ischemic cardiomyopathy, status post heart transplantation some 5 years ago History of previous left ventricular assist device use History of LV dysfunction, with an ejection fraction of 40-45% History of diabetes mellitus History of CVA Plan: Plan dated 02/02/2018 The patient is doing much better. She remains on the medications for both COPD and CHF. Her N-terminal proBNP was quite elevated on admission. She is receiving IV Lasix. In addition, she was feeling short acting beta agonist, short acting muscarinic antagonist, long-acting beta agonist, and inhaled corticosteroids. She is also receiving systemic corticosteroids. She is much improved. She is hoping to be discharged in a day or 2. No additional recommendations are made. Prognosis is guarded. Plan dated 02/03/2018 The patient seemed to be doing much better. She's been treated for both COPD and CHF exacerbations. As mentioned in the history section of the dictation, we feel that heart failure is more likely contributor to her shortness of breath but both are contributing to her symptoms. She is feeling much better on standard therapy for both problems. We'll continue to follow. I did tell her I would like to see her in the office after discharge. This would include a full pulmonary function test to assess the severity of her chronic obstructive pulmonary disease. Prognosis is guarded. Additional recommendations and suggestions are forthcoming. Time with Patient: Less than 30
--- NOTE | 2018-02-03 18:59 | P.DS ---
Providers Date of admission: 01/31/18 21:44 Attending physician: Mariusz Carson Consults: 01/31/18 21:44 Consult Physician Routine Consulting Provider: Hugh Ziegler Consult Reason/Comments: COPD, CHF Do you want consulting provider notified?: Yes Consult Physician Routine Consulting Provider: Bravo Bañuelos Consult Reason/Comments: CHF Do you want consulting provider notified?: Yes Primary care physician: William Guillen [facility] Course: This is a pleasant 57 years old female with past medical history of COPD, congestive heart failure, diabetes mellitus, hyperlipidemia, hypertension, renal disease. Patient is not oxygen dependent however she is using a steroids 5 mg daily on basic line. And she follow up with Dr. Guillen an outpatient setting. She presents because of dyspnea which is thought to be multifactorial secondary to her heart failure as well as her COPD exacerbation after she is been evaluated by pulmonary and cardiology team. Patient was treated with steroids, breathing treatment and diuretics. Patient showed interval improvement and on the day's of discharge patient was minimally short of breath almost went back to her baseline. With chest little cough and white phlegm which is close to her baseline. No chest pain. Patient herself feels ready to go home. Patient was cleared by both cardiology and pulmonary team for discharge Problems and management plan was discussed with the patient. Patient was found stable and can be discharged home and guarded prognosis for she needs follow-up as an outpatient. she agrees to appointment and its timing with her pcp made today. she told me she is going to call and make appointment with cardiology and pulmonary team as instructed. pt is instructed to f/u with her cardiology and pulmonary upon dc in 1 wk and she agrees. i called her pharmacy for her lasix prescription , which is ordered. pt told me she was taking off her eliquis by her pcp about one month ago , and that she was taking it for a clot in her neck vv. 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 Gen: patient is a AAOx3, no distress CVS: S1-S2, RRR, no murmur Lungs: B/L CTA, no wheezing Abdomen: soft, no distention, no tenderness, positive bowel sounds Extremity: no leg edema or induration Time spent more than 35 minutes Patient Condition at Discharge: Stable Plan - Discharge Summary Discharge Rx Participant: No New Discharge Prescriptions: New Furosemide [Lasix] 20 mg PO BID@0900,1600 tab Metoprolol Succinate (ER) [Toprol XL] 25 mg PO BID #60 tab.er.24h guaiFENesin SYRUP 100MG/5ML [Robitussin] 5 ml PO Q6HR PRN 3 Days #1 bottle PRN Reason: Cough Continue Aspirin 81 mg PO DAILY Pravastatin Sodium [Pravachol] 40 mg PO HS Omeprazole 20 mg PO DAILY Ferrous Sulfate [Iron (65 MG Elemental)] 325 mg PO TID Tacrolimus [Prograf] 2 mg PO DAILY Allergy Tabotc(Unknown) 1 tab PO DAILY valGANciclovir [Valcyte] 900 mg PO QAM predniSONE 5 mg PO DAILY Mycophenolate Mofetil [Cellcept] 1,250 mg PO BID Zolpidem [Ambien] 10 mg PO HS PRN PRN Reason: Insomnia Albuterol Inhaler [Ventolin Hfa Inhaler] 2 puff INHALATION RT-Q4H PRN PRN Reason: Shortness Of Breath valACYclovir [Valtrex] 500 mg PO DAILY Tacrolimus [Prograf] 2.5 mg PO HS Potassium Chloride ER [K-Dur 10] 10 meq PO DAILY HYDROcodone/APAP 5-325MG [Realitos 5-325] 1 tab PO Q8H PRN PRN Reason: Pain Multivitamins, Thera [Multivitamin (formulary)] 1 tab PO DAILY Magnesium Oxide [Mag-Ox] 400 mg PO DAILY Lisinopril [Zestril] 5 mg PO DAILY Empagliflozin [Jardiance] 25 mg PO DAILY Ipratropium-Albuterol Nebulize [Duoneb 0.5 mg-3 mg/3 ml Soln] 3 ml INHALATION RT-Q6H PRN PRN Reason: Shortness Of Breath Cyclobenzaprine [Flexeril] 10 mg PO Q8H Citalopram Hydrobromide [CeleXA] 20 mg PO DAILY Varenicline [Chantix Continuing Pack] 1 mg PO BID Discontinued Apixaban [Eliquis] 5 mg PO BID NIFEdipine XL [Procardia Xl] 60 mg PO DAILY Discharge Medication List Aspirin 81 mg PO DAILY 03/28/17 [History] Ferrous Sulfate [Iron (65 MG Elemental)] 325 mg PO TID 03/28/17 [History] Omeprazole 20 mg PO DAILY 03/28/17 [History] Pravastatin Sodium [Pravachol] 40 mg PO HS 03/28/17 [History] Tacrolimus [Prograf] 2 mg PO DAILY 03/28/17 [History] Allergy Tabotc(Unknown) 1 tab PO DAILY 06/13/17 [History] Mycophenolate Mofetil [Cellcept] 1,250 mg PO BID 07/17/17 [History] predniSONE 5 mg PO DAILY 07/17/17 [History] valGANciclovir [Valcyte] 900 mg PO QAM 07/17/17 [History] Albuterol Inhaler [Ventolin Hfa Inhaler] 2 puff INHALATION RT-Q4H PRN 02/01/18 [ History] Citalopram Hydrobromide [CeleXA] 20 mg PO DAILY 02/01/18 [History] Cyclobenzaprine [Flexeril] 10 mg PO Q8H 02/01/18 [History] Empagliflozin [Jardiance] 25 mg PO DAILY 02/01/18 [History] HYDROcodone/APAP 5-325MG [Realitos 5-325] 1 tab PO Q8H PRN 02/01/18 [History] Ipratropium-Albuterol Nebulize [Duoneb 0.5 mg-3 mg/3 ml Soln] 3 ml INHALATION RT -Q6H PRN 02/01/18 [History] Lisinopril [Zestril] 5 mg PO DAILY 02/01/18 [History] Magnesium Oxide [Mag-Ox] 400 mg PO DAILY 02/01/18 [History] Multivitamins, Thera [Multivitamin (formulary)] 1 tab PO DAILY 02/01/18 [History ] Potassium Chloride ER [K-Dur 10] 10 meq PO DAILY 02/01/18 [History] Tacrolimus [Prograf] 2.5 mg PO HS 02/01/18 [History] Varenicline [Chantix Continuing Pack] 1 mg PO BID 02/01/18 [History] Zolpidem [Ambien] 10 mg PO HS PRN 02/01/18 [History] valACYclovir [Valtrex] 500 mg PO DAILY 02/01/18 [History] Furosemide [Lasix] 20 mg PO BID@0900,1600 tab 02/03/18 [Rx] Metoprolol Succinate (ER) [Toprol XL] 25 mg PO BID #60 tab.er.24h 02/03/18 [Rx] guaiFENesin SYRUP 100MG/5ML [Robitussin] 5 ml PO Q6HR PRN 3 Days #1 bottle 02/03 [Rx] Follow up Appointment(s)/Referral(s): Laly Stephen NPC [Nurse Practitioner] - 02/23/18 2:30 pm (Thursday) William Guillen DO [Primary Care Provider] - 02/10/18 1:15 pm (thursday) Patient Instructions/Handouts: Heart Failure (DC), Heart Healthy Diet (DC) Activity/Diet/Wound Care/Special Instructions: cardiac diet activity as tolerated Discharge Disposition: HOME SELF-CARE
[2018-02-03] MEDS ORDERED: METOPROLOL SUCCINATE (ER) 25 MG TAB.ER.24H PO SCH (21:00)
--- NOTE | 2018-02-08 06:41 | CDI ---
Last Revision, February 2017 Documentation Clarification Form Date: 02/10/2018 6:30:00 AM From: BRANDON Ramirez Phone: If you have question, contact Fátima Garg, at [phone] M-F 8:30 am to 6pm Admit Date: 01/31/2018 9:44:00 PM Patient Name: Syl Coffey Visit Number: [id number] Discharge Date: 02/03/18 ATTENTION: The Clinical Documentation Specialists (CDI) and [facility] Coding Staff appreciate your assistance in clarifying documentation. Please respond to the clarification below the line at the bottom and electronically sign. The CDI & [facility] Coding staff will review the response and follow-up if needed. Please note: Queries are made part of the Legal Health Record. If you have any questions, please contact the author of this message via ITS. Dr Sheet: Conflicting documentation has been found in the medical record. On the H&P it is noted that the patient has an acute exacerbation of CHF from diastolic dysfunction with an EF of 40-45% in a transplanted heart. In the progress notes dated 02/02 the acute exacerbation of CHF is noted to be from both systolic and diastolic dysfunction. Please clarify the dysfunction type for proper reporting purposes. Thank you for your time. In your opinion what is the most clinically appropriate diagnosis for this patient? Diastolic CHF Diastolic and systolic CHF Other explanation of clinical findings Unable to determine (no explanation for clinical findings) pt has acute on chronic systolic CHF, with EF 40-45% MTDD
== END 2018-02-03 14:55 | disposition home or self-care (01) | DRG 291 ==
LOC: EC 18:51 → 3SCARD 21:44
PROVIDERS: ADMIT Hospitalist; ATTEND Hospitalist
DX: I11.0 Hypertensive heart disease with heart failure (principal); J12.9 Viral pneumonia, unspecified; J44.1 Chronic obstructive pulmonary disease with (acute) exacerbation; Z94.1 Heart transplant status; T86.22 Heart transplant failure; J44.0 Chronic obstructive pulmonary disease with (acute) lower respiratory infection; I50.23 Acute on chronic systolic (congestive) heart failure; E78.5 Hyperlipidemia, unspecified; I08.1 Rheumatic disorders of both mitral and tricuspid valves; E09.9 Drug or chemical induced diabetes mellitus without complications; I45.10 Unspecified right bundle-branch block; T38.0X5A Adverse effect of glucocorticoids and synthetic analogues, initial encounter; Z96.652 Presence of left artificial knee joint; Z79.82 Long term (current) use of aspirin; Z79.899 Other long term (current) drug therapy; Z79.01 Long term (current) use of anticoagulants; Z88.5 Allergy status to narcotic agent; Z88.2 Allergy status to sulfonamides; Z90.49 Acquired absence of other specified parts of digestive tract; Z90.710 Acquired absence of both cervix and uterus; Z87.891 Personal history of nicotine dependence; Z79.52 Long term (current) use of systemic steroids; Z79.84 Long term (current) use of oral hypoglycemic drugs; Z80.8 Family history of malignant neoplasm of other organs or systems; Z86.73 Personal history of transient ischemic attack (TIA), and cerebral infarction without residual deficits
CPT/HCPCS: 36415; 71046; 80048; 80053; 82550; 82553; 83735; 83880; 84484; 85025; 85610; 85730; 87040; 93005; 93306; 94640; 94760; 96374; 96375; 99291

== ENCOUNTER 2018-04-02 20:16 | Inpatient (IN) | payer MEDICARE, OTHER ==
[2018-04-02] MEDS ORDERED: SODIUM CHLORIDE 0.9% 1,000 ML IV STA (20:49)
--- NOTE | 2018-04-02 20:50 | ED ---
Arrhythmia/Palpitations HPI - General Chief Complaint: Arrhythmia/Palpitations Stated Complaint: Heart problems Time Seen by Provider: 04/02/18 20:49 Source: patient, RN notes reviewed, old records reviewed Mode of arrival: wheelchair Limitations: no limitations - History of Present Illness Initial Comments: This is a 57-year-old female the ER for evaluation. She presents today for evaluation regards to palpitations and tachycardia. Patient feels short of breath. Patient feels like her heart beating hard in her chest. Patient does have history of heart failure, does have history of elevated heart rate and palpitations, symptoms related to heart transplant secondary to significant coronary artery disease and heart failure. Patient denies any recent change in medications, no fevers no cough or congestion, she does also have current chest pain. MD Complaint: rapid heart beat, "heart racing", palpitations -: days(s) Context: occurred during rest, occurred during exertion Arrhythmia History: SVT Associated Symptoms: chest pain, shortness of breath - Related Data Home Medications Medication Instructions Recorded Confirmed Aspirin 81 mg PO DAILY 03/28/17 04/02/18 Ferrous Sulfate [Iron (65 MG 325 mg PO BID 03/28/17 04/02/18 Elemental)] Omeprazole 20 mg PO DAILY 03/28/17 04/02/18 Pravastatin Sodium [Pravachol] 40 mg PO HS 03/28/17 04/02/18 Tacrolimus [Prograf] 2 mg PO DAILY 03/28/17 04/02/18 Allergy Tabotc(Unknown) 1 tab PO DAILY 06/13/17 04/02/18 Mycophenolate Mofetil [Cellcept] 1,250 mg PO BID 07/17/17 04/02/18 predniSONE 5 mg PO DAILY 07/17/17 04/02/18 valGANciclovir [Valcyte] 450 mg PO QAM 07/17/17 04/02/18 Albuterol Inhaler [Ventolin Hfa 2 puff INHALATION RT-Q4H PRN 02/01/18 04/02/18 Inhaler] Citalopram Hydrobromide [CeleXA] 20 mg PO DAILY 02/01/18 04/02/18 Cyclobenzaprine [Flexeril] 10 mg PO Q8H 02/01/18 04/02/18 Empagliflozin [Jardiance] 25 mg PO DAILY 02/01/18 04/02/18 Ipratropium-Albuterol Nebulize 3 ml INHALATION RT-Q6H PRN 02/01/18 04/02/18 [Duoneb 0.5 mg-3 mg/3 ml Soln] Lisinopril [Zestril] 5 mg PO DAILY 02/01/18 04/02/18 Magnesium Oxide [Mag-Ox] 400 mg PO DAILY 02/01/18 04/02/18 Multivitamins, Thera [Multivitamin 1 tab PO DAILY 02/01/18 04/02/18 (formulary)] Potassium Chloride ER [K-Dur 10] 10 meq PO DAILY 02/01/18 04/02/18 Tacrolimus [Prograf] 2.5 mg PO HS 02/01/18 04/02/18 Varenicline [Chantix Continuing 1 mg PO BID 02/01/18 04/02/18 Pack] Zolpidem [Ambien] 10 mg PO HS PRN 02/01/18 04/02/18 Furosemide [Lasix] 40 mg PO BID 04/02/18 04/02/18 Previous Rx's Medication Instructions Recorded Metoprolol Succinate (ER) [Toprol 25 mg PO BID #60 tab.er.24h 02/03/18 XL] Allergies Allergy/AdvReac Type Severity Reaction Status Date / Time morphine Allergy Rash/Hives Verified 04/02/18 21:31 sulfamethoxazole Allergy Dyspnea Verified 04/02/18 21:31 [From Bactrim] trimethoprim [From Bactrim] Allergy Dyspnea Verified 04/02/18 21:31 meperidine [From Demerol] AdvReac Hallucinati Verified 04/02/18 21:31 ons Review of Systems ROS Statement: Those systems with pertinent positive or pertinent negative responses have been documented in the HPI. ROS Other: All systems not noted in ROS Statement are negative. Past Medical History Past Medical History: Heart Failure, COPD, Diabetes Mellitus, Hyperlipidemia, Hypertension, Renal Disease Additional Past Medical History / Comment(s): heart transplant from [facility] on May 2012. DM due to prednisone taking Januvia at home. History of Any Multi-Drug Resistant Organisms: None Reported Past Surgical History: Cholecystectomy, Hysterectomy, Joint Replacement, Orthopedic Surgery Additional Past Surgical History / Comment(s): heart transplant 2012, sinus, carpal tunnel, left knee replacement. *40 stents in her old heart Past Anesthesia/Blood Transfusion Reactions: No Reported Reaction Past Psychological History: No Psychological Hx Reported Smoking Status: Former smoker Past Alcohol Use History: None Reported Past Drug Use History: None Reported - Past Family History Father Family Medical History: Cancer Additional Family Medical History / Comment(s): melanoma Mother Family Medical History: Cancer Additional Family Medical History / Comment(s): rectal General Exam Limitations: no limitations General appearance: alert, in no apparent distress, anxious Head exam: Present: atraumatic, normocephalic, normal inspection Eye exam: Present: normal appearance, PERRL, EOMI. Absent: scleral icterus, conjunctival injection, periorbital swelling ENT exam: Present: normal exam, mucous membranes moist Neck exam: Present: normal inspection. Absent: tenderness, meningismus, lymphadenopathy Respiratory exam: Present: normal lung sounds bilaterally. Absent: respiratory distress, wheezes, rales, rhonchi, stridor Cardiovascular Exam: Present: normal rhythm, tachycardia, normal heart sounds. Absent: systolic murmur, diastolic murmur, rubs, gallop, clicks GI/Abdominal exam: Present: soft, normal bowel sounds. Absent: distended, tenderness, guarding, rebound, rigid Extremities exam: Present: normal inspection, full ROM, normal capillary refill. Absent: tenderness, pedal edema, joint swelling, calf tenderness Back exam: Present: normal inspection Neurological exam: Present: alert, oriented X3, CN II-XII intact Psychiatric exam: Present: normal affect, normal mood Skin exam: Present: warm, dry, intact, normal color. Absent: rash Course Vital Signs 04/02/18 04/02/18 04/02/18 20:32 21:23 22:58 Temperature 98.3 F Pulse Rate 12 L 121 H 124 H Respiratory 20 16 16 Rate Blood Pressure 132/88 115/73 128/99 O2 Sat by Pulse 97 95 95 Oximetry - Reevaluation(s) Reevaluation #1: 04/02/18 22:29 Medical record reviewed 04/02/18 23:30 Prior hospitalizations are reviewed Reevaluation #2: 04/02/18 23:30 Patient still short of breath with palpitations and chest pain EKG Findings - EKG Comments: EKG Findings:: EKG shows sinus tachycardia rate 124, AL 156, QRS 126, QTc 410 Medical Decision Making - Medical Decision Making 57 female DEL chest pain or palpitations. Patient be admitted for cardiology evaluation, monitoring of cardiopulmonary status. - Lab Data Result diagrams: 04/02/18 21:04 04/02/18 21:04 Lab Results 04/02/18 04/02/18 04/02/18 Range/Units 21:04 21:04 21:04 WBC 10.2 (3.8-10.6) k/uL RBC 5.14 (3.80-5.40) m/uL Hgb 12.8 (11.4-16.0) gm/dL Hct 41.4 (34.0-46.0) % MCV 80.6 (80.0-100.0) fL MCH 24.9 L (25.0-35.0) pg MCHC 30.9 L (31.0-37.0) g/dL RDW 16.0 H (11.5-15.5) % Plt Count 327 (150-450) k/uL Neutrophils % 79 % Lymphocytes % 12 % Monocytes % 5 % Eosinophils % 2 % Basophils % 0 % Neutrophils # 8.1 H (1.3-7.7) k/uL Lymphocytes # 1.3 (1.0-4.8) k/uL Monocytes # 0.5 (0-1.0) k/uL Eosinophils # 0.2 (0-0.7) k/uL Basophils # 0.0 (0-0.2) k/uL Hypochromasia Moderate PT (9.0-12.0) sec INR (<1.2) APTT (22.0-30.0) sec Sodium 141 (137-145) mmol/L Potassium 3.8 (3.5-5.1) mmol/L Chloride 105 (98-107) mmol/L Carbon Dioxide 28 (22-30) mmol/L Anion Gap 8 mmol/L BUN 14 (7-17) mg/dL Creatinine 0.74 (0.52-1.04) mg/dL Est GFR (CKD-EPI)AfAm >90 (>60 ml/min/1.73 sqM) Est GFR (CKD-EPI)NonAf >90 (>60 ml/min/1.73 sqM) Glucose 121 H (74-99) mg/dL Calcium 8.5 (8.4-10.2) mg/dL Magnesium 1.9 (1.6-2.3) mg/dL Total Bilirubin 0.6 (0.2-1.3) mg/dL AST 18 (14-36) U/L ALT 21 (9-52) U/L Alkaline Phosphatase 116 (38-126) U/L Total Creatine Kinase 56 (30-135) U/L CK-MB (CK-2) 0.7 (0.0-2.4) ng/mL CK-MB (CK-2) Rel Index 1.3 Troponin I 0.079 H* (0.000-0.034) ng/mL Total Protein 6.8 (6.3-8.2) g/dL Albumin 4.0 (3.5-5.0) g/dL TSH 2.670 (0.465-4.680) mIU/L Urine Opiates Screen (NotDetected) Ur Oxycodone Screen (NotDetected) Urine Methadone Screen (NotDetected) Ur Propoxyphene Screen (NotDetected) Ur Barbiturates Screen (NotDetected) U Tricyclic Antidepress (NotDetected) Ur Phencyclidine Scrn (NotDetected) Ur Amphetamines Screen (NotDetected) U Methamphetamines Scrn (NotDetected) U Benzodiazepines Scrn (NotDetected) Urine Cocaine Screen (NotDetected) U Marijuana (THC) Screen (NotDetected) 04/02/18 04/02/18 Range/Units 21:04 22:44 WBC (3.8-10.6) k/uL RBC (3.80-5.40) m/uL Hgb (11.4-16.0) gm/dL Hct (34.0-46.0) % MCV (80.0-100.0) fL MCH (25.0-35.0) pg MCHC (31.0-37.0) g/dL RDW (11.5-15.5) % Plt Count (150-450) k/uL Neutrophils % % Lymphocytes % % Monocytes % % Eosinophils % % Basophils % % Neutrophils # (1.3-7.7) k/uL Lymphocytes # (1.0-4.8) k/uL Monocytes # (0-1.0) k/uL Eosinophils # (0-0.7) k/uL Basophils # (0-0.2) k/uL Hypochromasia PT 10.9 (9.0-12.0) sec INR 1.0 (<1.2) APTT 24.4 (22.0-30.0) sec Sodium (137-145) mmol/L Potassium (3.5-5.1) mmol/L Chloride (98-107) mmol/L Carbon Dioxide (22-30) mmol/L Anion Gap mmol/L BUN (7-17) mg/dL Creatinine (0.52-1.04) mg/dL Est GFR (CKD-EPI)AfAm (>60 ml/min/1.73 sqM) Est GFR (CKD-EPI)NonAf (>60 ml/min/1.73 sqM) Glucose (74-99) mg/dL Calcium (8.4-10.2) mg/dL Magnesium (1.6-2.3) mg/dL Total Bilirubin (0.2-1.3) mg/dL AST (14-36) U/L ALT (9-52) U/L Alkaline Phosphatase (38-126) U/L Total Creatine Kinase (30-135) U/L CK-MB (CK-2) (0.0-2.4) ng/mL CK-MB (CK-2) Rel Index Troponin I (0.000-0.034) ng/mL Total Protein (6.3-8.2) g/dL Albumin (3.5-5.0) g/dL TSH (0.465-4.680) mIU/L Urine Opiates Screen Not Detected (NotDetected) Ur Oxycodone Screen Not Detected (NotDetected) Urine Methadone Screen Not Detected (NotDetected) Ur Propoxyphene Screen Not Detected (NotDetected) Ur Barbiturates Screen Not Detected (NotDetected) U Tricyclic Antidepress Not Detected (NotDetected) Ur Phencyclidine Scrn Not Detected (NotDetected) Ur Amphetamines Screen Not Detected (NotDetected) U Methamphetamines Scrn Not Detected (NotDetected) U Benzodiazepines Scrn Not Detected (NotDetected) Urine Cocaine Screen Not Detected (NotDetected) U Marijuana (THC) Screen Not Detected (NotDetected) - Radiology Data Radiology results: report reviewed (Chest x-ray), image reviewed Disposition Clinical Impression: Tachycardia, Congestive heart failure, Atypical chest pain Disposition: ADMITTED IP TO THIS HOSP Condition: Fair Is patient prescribed a controlled substance at d/c from ED?: No Referrals: William Guillen DO [Primary Care Provider] - 1-2 days
[2018-04-02 21:25] LABS: Basophils % (A) 0 %; Eosinophils # (A) 0.2 k/uL (0-0.7); Eosinophils % (A) 2 %; HCT 41.4 % (34.0-46.0); HGB 12.8 gm/dL (11.4-16.0); Hypochromasia Moderate; Lymphocytes # (A) 1.3 k/uL (1.0-4.8); Lymphocytes % (A) 12 %; MCH 24.9 pg (25.0-35.0); MCHC 30.9 g/dL (31.0-37.0); MCV 80.6 fL (80.0-100.0); Mean Platelet Volume 7.2; Monocytes # (A) 0.5 k/uL (0-1.0); Monocytes % (A) 5 %; Neutrophils # (A) 8.1 k/uL (1.3-7.7); Neutrophils % (A) 79 %; Platelet Count 327 k/uL (150-450); RBC 5.14 m/uL (3.80-5.40); WBC 10.2 k/uL (3.8-10.6)
[2018-04-02 21:33] LABS: Partial Thromboplastin Time 24.4 sec (22.0-30.0); Prothrombin Time 10.9 sec (9.0-12.0)
[2018-04-02 21:37] LABS: ALT 21 U/L (9-52); AST 18 U/L (14-36); Alkaline Phosphatase 116 U/L (38-126); Anion Gap 8 mmol/L; Blood Urea Nitrogen 14 mg/dL (7-17); Calcium 8.5 mg/dL (8.4-10.2); Carbon Dioxide 28 mmol/L (22-30); Chloride 105 mmol/L (98-107); Glucose 121 mg/dL (74-99); Magnesium 1.9 mg/dL (1.6-2.3); Potassium 3.8 mmol/L (3.5-5.1); Sodium 141 mmol/L (137-145); Total Bilirubin 0.6 mg/dL (0.2-1.3); Total Protein 6.8 g/dL (6.3-8.2)
[2018-04-02] MEDS ORDERED: NITROGLYCERIN SL TABS 0.4 MG TAB SUBLINGUAL PRN (21:58)
[2018-04-02] MEDS ORDERED: ASPIRIN 81 MG PO STA (21:58)
[2018-04-02 21:59] LABS: Creatine Kinase MB 0.7 ng/mL (0.0-2.4)
[2018-04-02 22:05] LABS: Troponin I 0.079 ng/mL (0.000-0.034)
--- NOTE | 2018-04-02 22:48 | XR ---
EXAMINATION TYPE: XR chest 2V DATE OF EXAM: 04/02/2018 COMPARISON: 02/02/2018 HISTORY: Short of breath TECHNIQUE: Frontal and lateral views of the chest are obtained. FINDINGS: There is mild pulmonary congestion. There is slight blunting of left costophrenic angle. T here are sternal wires. There are chest leads. Heart size is normal. Bony thorax is intact. There are surgical clips at the left lung apex. IMPRESSION: There is new small left pleural effusion. Mild pulmonary congestion without overt heart failure. Pulmonary congestion increased to last exam.
[2018-04-02 23:06] LABS: Amphetamine Screen,Urine Not Detected (NotDetected); Barbiturate Screen,Urine Not Detected (NotDetected); Benzodiazepines Screen,Urine Not Detected (NotDetected); Cocaine Screen,Urine Not Detected (NotDetected); Methadone Screen, Urine Not Detected (NotDetected); Opiate Screen,Urine Not Detected (NotDetected); Oxycodone Screen, Urine Not Detected (NotDetected); Phencyclidine Screen,Urine Not Detected (NotDetected); Tricyclic Antidepressant,Urine Not Detected (NotDetected); Urn Cannabinoid Scrn Not Detected (NotDetected)
[2018-04-02] MEDS ORDERED: HYDROcodone/APAP 7.5-325MG 1 EACH TAB PO ONE (23:39)
[2018-04-03] MEDS: ZOLPIDEM 10 MG TAB PO PRN ×2 (02:25→23:58)
[2018-04-03 03:55] LABS: Cholesterol 156 mg/dL (<200); HDL Cholesterol 26 mg/dL (40-60); LDL Cholesterol,Calculated 105 mg/dL (0-99); Triglycerides 123 mg/dL (<150)
[2018-04-03 04:19] LABS: Creatine Kinase MB 0.6 ng/mL (0.0-2.4)
[2018-04-03 04:33] LABS: Troponin I 0.077 ng/mL (0.000-0.034)
[2018-04-03] MEDS ORDERED: ASPIRIN 325 MG TAB PO SCH (09:00)
[2018-04-03] MEDS ORDERED: METOPROLOL TARTRATE 25 MG TAB PO SCH (09:00)
--- NOTE | 2018-04-03 10:06 | P.CRDCN ---
History of Present Illness Consult date: 04/03/18 Requesting physician: Angel Guerrero Consult reason: shortness of breath Chief complaint: Shortness of breath History of present illness: This is a pleasant 57-year-old female with known history of heart transplant in 2012 for which she follows at [facility], history of COPD , nicotine dependence, hyperlipidemia, diabetes, and renal failure. She presents to the hospital on this occasion with symptoms of progressively worsening shortness of breath over 3 day duration. She also states that she's been coughing up a significant amount of green sputum. She denies any fever or chills. Denies any overt chest discomfort. The patient did have an echocardiogram with Doppler study performed in January of this year which revealed an ejection fraction of 40-45%. Moderate to severe mitral regurgitation was present, severe tricuspid regurg. Her EKG on this admission showed a sinus tachycardia with right bundle branch block pattern and left anterior fascicular block. Chest x-ray shows a new small left pleural effusion , mild pulmonary congestion with no overt heart failure. Blood pressure 122/80 with a heart rate of 110, 91% on 1 L of oxygen. White blood cell count 10.2, hemoglobin 12.8, platelet count 327. Sodium 141, potassium 3.8, BUN 14, creatinine 0.7. Troponin 0.079, 0.077. TSH level2.6. Drug screen negative. At the time of my examination this morning, patient states she still feels significantly short of breath and wheezy. Continues to cough up significant amount of yellow and green sputum. Past Medical History Past Medical History: Heart Failure, COPD, Diabetes Mellitus, Hyperlipidemia, Hypertension, Renal Disease Additional Past Medical History / Comment(s): heart transplant from [facility] on May 2012. DM due to prednisone taking Januvia at home. History of Any Multi-Drug Resistant Organisms: None Reported Past Surgical History: Cholecystectomy, Hysterectomy, Joint Replacement, Orthopedic Surgery Additional Past Surgical History / Comment(s): heart transplant 2012, sinus, carpal tunnel, left knee replacement. *40 stents in her old heart Past Anesthesia/Blood Transfusion Reactions: No Reported Reaction Past Psychological History: No Psychological Hx Reported Smoking Status: Former smoker Past Alcohol Use History: None Reported Past Drug Use History: None Reported - Past Family History Father Family Medical History: Cancer Additional Family Medical History / Comment(s): melanoma Mother Family Medical History: Cancer Additional Family Medical History / Comment(s): rectal Medications and Allergies Home Medications Medication Instructions Recorded Confirmed Type Aspirin 81 mg PO DAILY 03/28/17 04/02/18 History Ferrous Sulfate [Iron (65 MG 325 mg PO BID 03/28/17 04/02/18 History Elemental)] Omeprazole 20 mg PO DAILY 03/28/17 04/02/18 History Pravastatin Sodium [Pravachol] 40 mg PO HS 03/28/17 04/02/18 History Tacrolimus [Prograf] 2 mg PO DAILY 03/28/17 04/02/18 History Allergy Tabotc(Unknown) 1 tab PO DAILY 06/13/17 04/02/18 History Mycophenolate Mofetil [Cellcept] 1,250 mg PO BID 07/17/17 04/02/18 History predniSONE 5 mg PO DAILY 07/17/17 04/02/18 History valGANciclovir [Valcyte] 450 mg PO QAM 07/17/17 04/02/18 History Albuterol Inhaler [Ventolin Hfa 2 puff INHALATION RT-Q4H PRN 02/01/18 04/02/18 History Inhaler] Citalopram Hydrobromide [CeleXA] 20 mg PO DAILY 02/01/18 04/02/18 History Cyclobenzaprine [Flexeril] 10 mg PO Q8H 02/01/18 04/02/18 History Empagliflozin [Jardiance] 25 mg PO DAILY 02/01/18 04/02/18 History Ipratropium-Albuterol Nebulize 3 ml INHALATION RT-Q6H PRN 02/01/18 04/02/18 History [Duoneb 0.5 mg-3 mg/3 ml Soln] Lisinopril [Zestril] 5 mg PO DAILY 02/01/18 04/02/18 History Magnesium Oxide [Mag-Ox] 400 mg PO DAILY 02/01/18 04/02/18 History Multivitamins, Thera [Multivitamin 1 tab PO DAILY 02/01/18 04/02/18 History (formulary)] Potassium Chloride ER [K-Dur 10] 10 meq PO DAILY 02/01/18 04/02/18 History Tacrolimus [Prograf] 2.5 mg PO HS 02/01/18 04/02/18 History Varenicline [Chantix Continuing 1 mg PO BID 02/01/18 04/02/18 History Pack] Zolpidem [Ambien] 10 mg PO HS PRN 02/01/18 04/02/18 History Metoprolol Succinate (ER) [Toprol 25 mg PO BID #60 tab.er.24h 02/03/18 04/02/18 Rx XL] Furosemide [Lasix] 40 mg PO BID 04/02/18 04/02/18 History Allergies Allergy/AdvReac Type Severity Reaction Status Date / Time morphine Allergy Rash/Hives Verified 04/02/18 21:31 sulfamethoxazole Allergy Dyspnea Verified 04/02/18 21:31 [From Bactrim] trimethoprim [From Bactrim] Allergy Dyspnea Verified 04/02/18 21:31 meperidine [From Demerol] AdvReac Hallucinati Verified 04/02/18 21:31 ons Physical Exam Vitals: Vital Signs Temp Pulse Resp BP Pulse Ox 04/03/18 06:54 105 H 16 100/65 97 04/03/18 04:00 102/86 04/03/18 03:00 119/88 04/03/18 02:00 120/90 04/03/18 01:44 111 H 16 123/82 91 L 04/02/18 23:45 117 H 18 139/99 95 04/02/18 22:58 124 H 16 128/99 95 04/02/18 21:23 121 H 16 115/73 95 04/02/18 20:32 98.3 F 12 L 20 132/88 97 Intake and Output 04/02/18 04/03/18 04/03/18 22:59 06:59 14:59 Other: Weight 69.853 kg PHYSICAL EXAMINATION: GENERAL: 57-year-old female in no acute distress at the time of my examination HEENT: Head is atraumatic, normocephalic. Pupils equal, round. Sclera anicteric. Conjunctiva are clear. Mucous membranes of the mouth are moist. Neck is supple. There is elevated jugular venous pressure. No carotid bruit is heard. HEART EXAMINATION: Heart S1, S2 systolic murmur is heard . CHEST EXAMINATION: Lungs reveal scattered coarse rhonchi and wheezing throughout ABDOMEN: Soft, nontender. Bowel sounds are heard. No organomegaly noted. EXTREMITIES: 2+ peripheral pulses with no evidence of peripheral edema and no calf tenderness noted. NEUROLOGIC patient is awake, alert and oriented 3 . . Results 04/02/18 21:04 04/02/18 21:04 Cardiac Enzymes 04/02/18 04/02/18 04/03/18 Range/Units 21:04 21:04 03:24 AST 18 (14-36) U/L CK-MB (CK-2) 0.7 0.6 (0.0-2.4) ng/mL Troponin I 0.079 H* 0.077 H* (0.000-0.034) ng/mL Coagulation 04/02/18 Range/Units 21:04 PT 10.9 (9.0-12.0) sec APTT 24.4 (22.0-30.0) sec Lipids 04/03/18 Range/Units 03:24 Triglycerides 123 (<150) mg/dL Cholesterol 156 (<200) mg/dL HDL Cholesterol 26 L (40-60) mg/dL CBC 04/02/18 Range/Units 21:04 WBC 10.2 (3.8-10.6) k/uL RBC 5.14 (3.80-5.40) m/uL Hgb 12.8 (11.4-16.0) gm/dL Hct 41.4 (34.0-46.0) % Plt Count 327 (150-450) k/uL Comprehensive Metabolic Panel 04/02/18 Range/Units 21:04 Sodium 141 (137-145) mmol/L Potassium 3.8 (3.5-5.1) mmol/L Chloride 105 (98-107) mmol/L Carbon Dioxide 28 (22-30) mmol/L BUN 14 (7-17) mg/dL Creatinine 0.74 (0.52-1.04) mg/dL Glucose 121 H (74-99) mg/dL Calcium 8.5 (8.4-10.2) mg/dL AST 18 (14-36) U/L ALT 21 (9-52) U/L Alkaline Phosphatase 116 (38-126) U/L Total Protein 6.8 (6.3-8.2) g/dL Albumin 4.0 (3.5-5.0) g/dL Current Medications Generic Name Dose Route Start Last Admin Trade Name Freq PRN Reason Stop Dose Admin Aspirin 325 mg 04/03/18 09:00 Aspirin PO DAILY ASHLEIGH Metoprolol Tartrate 25 mg 04/03/18 09:00 Lopressor PO BID ASHLEIGH Nitroglycerin 0.4 mg 04/02/18 21:58 Nitrostat SUBLINGUAL Q5M PRN Chest Pain Zolpidem Tartrate 10 mg 04/03/18 01:43 04/03/18 02:25 Ambien PO 10 mg HS PRN Administration Anxiety Intake and Output 04/02/18 04/03/18 04/03/18 22:59 06:59 14:59 Other: Weight 69.853 kg 04/02/18 21:04 04/02/18 21:04 EKG Interpretations (text) EKG shows a sinus tachycardia with a right bundle branch block pattern Assessment and Plan Plan: Assessment and plan #1 symptoms of progressively worsening shortness of breath, possible COPD exacerbation with acute tracheobronchitis. #2 history of cardiac transplant in 2012 at [facility] #3 hypertension #4 hyperlipidemia #5 diabetes #6 nicotine dependence #7 COPD #8 abnormality in troponins, no significant rise and fall pattern, likely secondary to hypoxia. Patient denies chest discomfort. On review of prior admissions, patient is noted to have abnormality in troponins. Echocardiogram with Doppler study was performed in January of this year which revealed an ejection fraction of 40-45%, severe mitral regurgitation and tricuspid regurg. Plan We will obtain a BNP level. Decrease aspirin 81 mg daily. Resume statin, Lasix , and beta bandar. Patient is hypotensive this morning with a blood pressure 100/60, if blood pressure tolerates we will resume LUCA inhibitor tomorrow. Further recommendations to follow. DNP note has been reviewed, I agree with a documented findings and plan of care. Patient was seen and examined. .
[2018-04-03 10:25] LABS: HCT 41.5 % (34.0-46.0); HGB 12.2 gm/dL (11.4-16.0); Hypochromasia Marked; MCH 24.7 pg (25.0-35.0); MCHC 29.3 g/dL (31.0-37.0); MCV 84.1 fL (80.0-100.0); Mean Platelet Volume 7.1; Platelet Count 329 k/uL (150-450); RBC 4.93 m/uL (3.80-5.40); RDW 15.8 % (11.5-15.5); WBC 7.3 k/uL (3.8-10.6)
[2018-04-03 10:47] LABS: Creatine Kinase MB 0.5 ng/mL (0.0-2.4)
[2018-04-03 10:51] LABS: Troponin I 0.068 ng/mL (0.000-0.034)
[2018-04-03 11:32] VITALS: BMI 26.4
[2018-04-03 11:32] LABS: Glucose,Whole Blood 145 mg/dL (75-99)
[2018-04-03] MEDS ORDERED: IPRATROPIUM-ALBUTEROL 3 ML NEB INHALATION PRN (11:50)
[2018-04-03] MEDS ORDERED: ALBUTEROL INHALER 60 PUFF/8 GM INHALER INHALATION PRN (11:50)
[2018-04-03] MEDS ORDERED: predniSONE 5 MG TAB PO SCH (12:00)
[2018-04-03] MEDS: NON-FORMULARY DRUG (Empagliflozin [Jardiance] 25 MG) PO SCH (13:44)
[2018-04-03] MEDS: HYDROcodone/APAP 7.5-325MG 1 EACH TAB PO PRN ×2 (13:48→22:25)
[2018-04-03] MEDS: MYCOPHENOLATE MOFETIL 250 MG CAP PO SCH ×2 (13:49→20:10)
[2018-04-03] MEDS: TACROLIMUS 0.5 MG CAP PO SCH ×2 (13:49→20:09)
[2018-04-03] MEDS: MYCOPHENOLATE MOFETIL 500 MG TAB PO SCH ×2 (13:50→20:10)
[2018-04-03] MEDS: MULTIVITAMINS, THERA 1 EACH TAB PO SCH (13:57)
[2018-04-03] MEDS: LISINOPRIL 5 MG TAB PO SCH (13:57)
[2018-04-03] MEDS: MAGNESIUM OXIDE 400 MG TAB PO SCH (13:57)
[2018-04-03] MEDS: CITALOPRAM HYDROBROMIDE 20 MG TAB PO SCH (13:57)
[2018-04-03] MEDS: POTASSIUM CHLORIDE ER 10 MEQ TAB.ER.PRT PO SCH (14:00)
[2018-04-03] MEDS: FERROUS SULFATE 325 MG TAB PO SCH ×2 (14:00→14:01)
[2018-04-03] MEDS: CYCLOBENZAPRINE 10 MG TAB PO SCH ×2 (14:00→20:11)
[2018-04-03] MEDS: PANTOPRAZOLE 40 MG TABLET PO SCH (14:00)
[2018-04-03] MEDS ORDERED: ACETAMINOPHEN TAB 500 MG TAB PO PRN (15:20)
[2018-04-03] MEDS ORDERED: ALPRAZolam 0.25 MG TAB PO PRN (15:20)
[2018-04-03 16:26] LABS: Glucose,Whole Blood 153 mg/dL (75-99)
[2018-04-03] MEDS: IPRATROPIUM-ALBUTEROL 3 ML NEB INHALATION SCH ×2 (16:31→20:44)
--- NOTE | 2018-04-03 17:18 | HP ---
HISTORY AND PHYSICAL CHIEF COMPLAINT: Shortness of breath with cough and sputum. HISTORY OF PRESENT ILLNESS: This 57-year-old woman with a past medical history of CHF, COPD, diabetes mellitus, hypertension, hyperlipidemia and cardiac transplant in 2013 for ischemic cardiomyopathy being followed by Dr. William Guillen in the outpatient was complaining of shortness of breath and cough for the last 4 days. The patient apparently continued to smoke according to the family. There is no history of any fever. There is no history of headache, loss of consciousness or seizures. Patient admitted for further evaluation and treatment. NT proBNP was 8840. The troponins were found to be indeterminate at 0.079. No history of chest pain or palpitation. PAST MEDICAL HISTORY: History of CHF, history of ischemic cardiomyopathy, COPD, diabetes mellitus, hypertension, hyperlipidemia, history of ischemic cardiomyopathy. MEDICATIONS: Home medications are: 1. Valcyte 50 mg p.o. q.a.m. 2. Prednisone 5 mg p.o. daily. 3. Ambien 10 mg q.h.s. p.r.n. 4. Chantix. 5. Prograf 2.5 mg q.h.s. and 2 mg daily. 6. Pravachol 40 mg q.h.s. 7. K-Dur 10 mEq p.o. daily. 8. Omeprazole 20 mg p.o. daily. 9. CellCept 1250 mg daily. 10.Multivitamins 1 p.o. daily. 11.Toprol XL 25 mg p.o. b.i.d. 12.Magnesium oxide 400 mg p.o. daily. 13.Zestril 5 mg p.o. daily. 14.DuoNeb q.i.d. and p.r.n. 15.Lasix 40 mg p.o. b.i.d. 16.Iron 325 mg p.o. b.i.d. 17.Jardiance 25 mg p.o. daily. 18.Flexeril 10 mg p.o. q.8. 19.Celexa 20 mg p.o. daily. 20.Aspirin 81 mg p.o. daily. 21.Allergy tablet 1 tablet p.o. daily. 22.Ventolin HFA 2 puffs q.4 p.r.n. ALLERGIES: MORPHINE, BACTRIM, and DEMEROL. FAMILY HISTORY: History of cancer, melanoma in the family. SOCIAL HISTORY: History of smoking. No history of alcohol intake. REVIEW OF SYSTEMS: ENT: No diminished hearing or diminished vision. CARDIOVASCULAR SYSTEM: As mentioned earlier. RESPIRATORY SYSTEM: As mentioned earlier. GI: No nausea. GI: No dysuria. NERVOUS SYSTEM: No numbness or weakness. ALLERGY/IMMUNOLOGY: No history of asthma. MUSCULOSKELETAL: As mentioned earlier. HEMATOLOGY/ONCOLOGY: No history of anemia. ENDOCRINE: history of diabetes and hypothyroidism. CONSTITUTIONAL: As mentioned earlier. DERMATOLOGY: Negative. RHEUMATOLOGY: Negative. PSYCHIATRY: As mentioned earlier. PHYSICAL EXAMINATION: The patient is alert and oriented x3. The pulse is 111. Blood pressure 129/86, respiration 18, temperature 97.5, pulse ox 98% on room air. HEENT: Conjunctivae normal. Oral mucosa moist. Neck is no jugular venous distention. No carotid bruit. No lymph node enlargement. CARDIOVASCULAR: S1, S2 muffled. RESPIRATORY: Breath sounds diminished at the bases. Bilateral scattered rhonchi and crackles. Expiratory wheezing also present. ABDOMEN: Soft, nontender. No mass palpable. LEGS: No edema, no swelling. NERVOUS SYSTEM: Higher function as mentioned. Moves all 4 limbs. No focal motor deficits. LYMPHATICS: No lymphadenopathy of the neck, axillae or groin. SKIN: No ulcer, rash or bleeding. JOINTS: No actively deforming arthropathy. LABS: WBC 7.3, hemoglobin 12.2, otherwise troponin 0.079, 0.077 and 0.068. LDL is 105. ASSESSMENT: 1. Chronic obstructive pulmonary disease acute exacerbation with acute purulent tracheobronchitis. 2. Continued ongoing nicotine dependence. 3. History of cardiac transplant in 2012 for ischemic cardiomyopathy. 4. History of congestive heart failure. 5. History of chronic obstructive pulmonary disease. 6. Diabetes mellitus type 2. 7. Hypertension. 8. Hyperlipidemia. 9. History of cholecystectomy. 10.History of nicotine dependence. RECOMMENDATIONS AND DISCUSSION: This 57-year-old woman who presented with multiple complex medical issues, will monitor the patient closely. Continue the current medications. Continue symptomatic treatment. Otherwise at this time I recommend to continue with the bronchodilators, steroids, empiric antibiotics. Otherwise we will continue to monitor. The prognosis guarded because of multiple complex medical issues. Further recommendations to follow. I would also recommend pulmonary consultation also. Cardiology consultation obtained. A copy of dictation forwarded Dr. William Guillen who is the primary physician. MMODL / IJN: [id number] / MTDD
[2018-04-03] MEDS: INSULIN ASPART 100 UNIT/ML 1 ML 10 ML VIAL SQ SCH ×2 (17:28→20:08)
[2018-04-03] MEDS: methylPREDNISolone SOD SUCCI 125 MG/2 ML VIAL IV SCH ×2 (17:30→22:26)
[2018-04-03 20:05] LABS: Glucose,Whole Blood 176 mg/dL (75-99)
[2018-04-03] MEDS: HEPARIN SODIUM,PORCINE 5,000 UNIT/ML 1 ML VIAL SQ SCH (20:08)
[2018-04-03] MEDS: VARENICLINE 1 MG TAB PO SCH (20:11)
[2018-04-03] MEDS: FUROSEMIDE 40 MG TAB PO SCH (20:11)
[2018-04-03] MEDS: PRAVASTATIN SODIUM 40 MG TAB PO SCH (20:12)
[2018-04-03] MEDS: METOPROLOL SUCCINATE (ER) 25 MG TAB.ER.24H PO SCH (20:15)
[2018-04-03] MEDS: SYMBICORT 160-4.5 MCG INHALER INHALATION SCH (20:44)
[2018-04-04] MEDS: CYCLOBENZAPRINE 10 MG TAB PO SCH ×3 (05:15→20:58)
[2018-04-04] MEDS: methylPREDNISolone SOD SUCCI 125 MG/2 ML VIAL IV SCH ×2 (05:18→11:54)
[2018-04-04 05:46] LABS: Glucose,Whole Blood 229 mg/dL (75-99)
[2018-04-04] MEDS: INSULIN ASPART 100 UNIT/ML 1 ML 10 ML VIAL SQ SCH ×4 (06:26→22:00)
[2018-04-04] MEDS: FERROUS SULFATE 325 MG TAB PO SCH ×2 (06:26→16:51)
[2018-04-04] MEDS: PANTOPRAZOLE 40 MG TABLET PO SCH (06:26)
[2018-04-04] MEDS: HEPARIN SODIUM,PORCINE 5,000 UNIT/ML 1 ML VIAL SQ SCH ×2 (08:05→20:59)
[2018-04-04] MEDS: MULTIVITAMINS, THERA 1 EACH TAB PO SCH (08:05)
[2018-04-04] MEDS: TACROLIMUS 0.5 MG CAP PO SCH ×2 (08:05→21:00)
[2018-04-04] MEDS: CITALOPRAM HYDROBROMIDE 20 MG TAB PO SCH (08:05)
[2018-04-04] MEDS: MYCOPHENOLATE MOFETIL 250 MG CAP PO SCH ×2 (08:06→21:00)
[2018-04-04] MEDS: MYCOPHENOLATE MOFETIL 500 MG TAB PO SCH ×2 (08:06→21:00)
[2018-04-04] MEDS: MAGNESIUM OXIDE 400 MG TAB PO SCH (08:06)
[2018-04-04] MEDS: ASPIRIN 81 MG PO SCH (08:07)
[2018-04-04] MEDS: VARENICLINE 1 MG TAB PO SCH ×2 (08:07→21:00)
[2018-04-04] MEDS: FUROSEMIDE 40 MG TAB PO SCH (08:07)
[2018-04-04] MEDS: METOPROLOL SUCCINATE (ER) 25 MG TAB.ER.24H PO SCH ×2 (08:07→20:59)
[2018-04-04] MEDS: POTASSIUM CHLORIDE ER 10 MEQ TAB.ER.PRT PO SCH (08:07)
[2018-04-04] MEDS: LISINOPRIL 5 MG TAB PO SCH (08:07)
[2018-04-04] MEDS: NON-FORMULARY DRUG (Empagliflozin [Jardiance] 25 MG) PO SCH (08:07)
[2018-04-04] MEDS: HYDROcodone/APAP 7.5-325MG 1 EACH TAB PO PRN ×2 (08:10→20:58)
[2018-04-04] MEDS: SYMBICORT 160-4.5 MCG INHALER INHALATION SCH ×2 (08:21→21:45)
[2018-04-04] MEDS: IPRATROPIUM-ALBUTEROL 3 ML NEB INHALATION SCH ×4 (08:21→21:45)
[2018-04-04 11:11] LABS: Glucose,Whole Blood 159 mg/dL (75-99)
--- NOTE | 2018-04-04 12:35 | ECHOF ---
Referral Reason:chest pain MEASUREMENTS -------- HEIGHT: 162.6 cm WEIGHT: 69.9 kg BP: 100/65 IVSd: 1.1 cm (0.6 - 1.1) LVIDd: 4.5 cm (3.9 - 5.3) LVPWd: 1.1 cm (0.6 - 1.1) EDV(Teich): 92 ml IVSs: 1.3 cm LVIDs: 4.3 cm LVPWs: 1.5 cm ESV(Teich): 82 ml EF(Teich): 11 % %FS: 5 % SV(Teich): 10 ml LA Diam: 4.7 cm (2.7 - 3.8) RVIDd: 3.1 cm (< 3.3) IVC: 17.86 mm LVLd A4C: 7.0 cm LVEDV MOD A4C: 68 ml LVLs A4C: 6.3 cm LVESV MOD A4C: 49 ml LVEF MOD A4C: 29 % SV MOD A4C: 20 ml LVLd A2C: 6.6 cm LVEDV MOD A2C: 46 ml LVLs A2C: 6.5 cm LVESV MOD A2C: 42 ml LVEF MOD A2C: 10 % SV MOD A2C: 5 ml EF Biplane: 23 % LVEDV MOD BP: 58 ml LVESV MOD BP: 44 ml LALs A4C: 7.0 cm LAAs A4C: 27.8 cm LAESV A-L A4C: 93 ml LAESV MOD A4C: 90 ml LALs A2C: 6.9 cm LAAs A2C: 24.5 cm LAESV A-L A2C: 75 ml LAESV MOD A2C: 71 ml LAESV(A-L): 85 ml LAESV Index (A-L): 48.36 ml/m Ao Diam: 2.8 cm (2.0 - 3.7) AV Cusp: 1.8 cm (1.5 - 2.6) EPSS: 0.7 cm AV Vmax: 0.97 m/s AV maxP.76 mmHg AR Vmax: 1.17 m/s AR maxP.47 mmHg AR PHT: 33 ms AR Dec Time: 114 ms AR Dec Bibb: 10.3 m/s TR Vmax: 2.87 m/s TR maxP.92 mmHg RAP: 15.00 mmHg RVSP: 47.92 mmHg MV EF SLOPE: 151.71 mm/s (70 - 150) MV EXCURSION: 1.14 cm (> 18.000) FINDINGS -------- Resting tachycardia (HR>100bpm). This was a technically good study. Patient had heart transplant 5 y/a The left ventricular size is normal. There is borderline concentric left ventricular hypertrophy. Overall left ventricular systolic function is severely impaired with, an EF between 25 - 30 %. The right ventricle is normal in size. LA is severely dilated >40 ml/m2 Appropriate left atrial appearance for a transplant recipient. The right atrium is normal in size. The aortic valve is trileaflet and appears structurally normal. Trace amount of aortic regurgitatio n. Moderate mitral regurgitation is present. Severe tricuspid regurgitation present. There is moderate pulmonary hypertension. The right ventr icular systolic pressure, as measured by Doppler, is 47.92mmHg. Trace/mild (physiologic) pulmonic regurgitation. The aortic root size is normal. Normal inferior vena cava with less than 50% inspiratory collapse consistent with estimated right atr ial pressure of 15 mmHg. There is no pericardial effusion. CONCLUSIONS -------- 1. Resting tachycardia (HR>100bpm). 2. This was a technically good study. 3. Patient had heart transplant 5 y/a 4. The left ventricular size is normal. 5. There is borderline concentric left ventricular hypertrophy. 6. Overall left ventricular systolic function is severely impaired with, an EF between 25 - 30 %. 7. The right ventricle is normal in size. 8. LA is severely dilated >40 ml/m2 9. Appropriate left atrial appearance for a transplant recipient. 10. The right atrium is normal in size. 11. The aortic valve is trileaflet and appears structurally normal. 12. Trace amount of aortic regurgitation. 13. Moderate mitral regurgitation is present. 14. Severe tricuspid regurgitation present. 15. There is moderate pulmonary hypertension. 16. The right ventricular systolic pressure, as measured by Doppler, is 47.92mmHg. 17. Trace/mild (physiologic) pulmonic regurgitation. 18. The aortic root size is normal. 19. Normal inferior vena cava with less than 50% inspiratory collapse consistent with estimated right atrial pressure of 15 mmHg. 20. There is no pericardial effusion. SALES HUNTER: SYDNEY Mario
[2018-04-04] MEDS: FUROSEMIDE 10 MG/ML 4 ML VIAL IV SCH ×2 (12:47→20:59)
--- NOTE | 2018-04-04 15:07 | P.PN ---
Subjective Progress Note Date: 04/04/18 This is a pleasant 57-year-old female with known history of heart transplant in 2012 for which she follows at [facility], history of COPD , nicotine dependence, hyperlipidemia, diabetes, and renal failure. She presents to the hospital on this occasion with symptoms of progressively worsening shortness of breath over 3 day duration. She also states that she's been coughing up a significant amount of green sputum. She denies any fever or chills. Denies any overt chest discomfort. The patient did have an echocardiogram with Doppler study performed in January of this year which revealed an ejection fraction of 40-45%. Moderate to severe mitral regurgitation was present, severe tricuspid regurg. Her EKG on this admission showed a sinus tachycardia with right bundle branch block pattern and left anterior fascicular block. Chest x-ray shows a new small left pleural effusion , mild pulmonary congestion with no overt heart failure. Blood pressure 122/80 with a heart rate of 110, 91% on 1 L of oxygen. White blood cell count 10.2, hemoglobin 12.8, platelet count 327. Sodium 141, potassium 3.8, BUN 14, creatinine 0.7. Troponin 0.079, 0.077. TSH level2.6. Drug screen negative. At the time of my examination this morning, patient states she still feels significantly short of breath and wheezy. Continues to cough up significant amount of yellow and green sputum. 04/04/2017 BNP level came back to be 8840. We will discontinue the oral Lasix and start the patient on IV Lasix today. Echocardiogram with Doppler study was also reviewed by Dr. VC Shields which revealed a reduced LV function. We will speak with the transplant team at [facility] tomorrow and arrange for a transfer there for the patient. This was explained to the patient in detail. Overall she is feeling significantly better today. Blood pressure 96/60 with a heart rate in the 70s. Objective - Vital Signs Vital signs: Vital Signs Temp 97.9 F 04/04/18 12:00 Pulse 73 04/04/18 12:25 Resp 18 04/04/18 12:00 BP 96/62 04/04/18 12:00 Pulse Ox 94 L 04/04/18 12:00 Intake & Output 04/03/18 04/04/18 04/04/18 18:59 06:59 18:59 Intake Total 462 240 360 Balance 462 240 360 Weight 72.1 kg Intake: Oral 462 240 360 Other: # Voids 1 - Exam PHYSICAL EXAMINATION: GENERAL: 57-year-old female in no acute distress at the time of my examination HEENT: Head is atraumatic, normocephalic. Pupils equal, round. Sclera anicteric. Conjunctiva are clear. Mucous membranes of the mouth are moist. Neck is supple. There is elevated jugular venous pressure. No carotid bruit is heard. HEART EXAMINATION: Heart S1, S2 systolic murmur is heard . CHEST EXAMINATION: Lungs reveal scattered coarse rhonchi and wheezing throughout ABDOMEN: Soft, nontender. Bowel sounds are heard. No organomegaly noted. EXTREMITIES: 2+ peripheral pulses with no evidence of peripheral edema and no calf tenderness noted. NEUROLOGIC patient is awake, alert and oriented 3 . . - Labs CBC & Chem 7: 04/03/18 09:26 04/02/18 21:04 Labs: Abnormal Lab Results - Last 24 Hours (Table) 04/03/18 04/03/18 04/03/18 Range/Units 09:26 16:25 19:54 POC Glucose (mg/dL) 153 H 176 H (75-99) mg/dL Hemoglobin A1c 7.0 H (4.0-6.0) % 04/04/18 04/04/18 Range/Units 05:45 11:06 POC Glucose (mg/dL) 229 H 159 H (75-99) mg/dL Hemoglobin A1c (4.0-6.0) % Assessment and Plan Plan: Assessment and plan #1 symptoms of progressively worsening shortness of breath, possible COPD exacerbation with acute tracheobronchitis. #2 history of cardiac transplant in 2012 at [facility] #3 hypertension #4 hyperlipidemia #5 diabetes #6 nicotine dependence #7 COPD #8 abnormality in troponins, no significant rise and fall pattern, likely secondary to hypoxia. Patient denies chest discomfort. On review of prior admissions, patient is noted to have abnormality in troponins. Echocardiogram with Doppler study was performed in January of this year which revealed an ejection fraction of 40-45%, severe mitral regurgitation and tricuspid regurg. #9 systolic congestive heart failure acute on chronic Plan We will discontinue the oral Lasix, start the patient on IV diuretics. We will also speak with the [facility] transplant team who follows the patient, arrange for possible transferred tomorrow because of the significantly reduced LV function. Discussed with the patient in detail. DNP note has been reviewed, I agree with a documented findings and plan of care. Patient was seen and examined. .
--- NOTE | 2018-04-04 15:14 | P.CNPUL ---
History of Present Illness Consult date: 04/04/18 Requesting physician: Angel Guerrero Reason for consult: COPD Chief complaint: Shortness of breath History of present illness: This is a 57-year-old female with history of cardiac transplant in 2012, history of nicotine dependence, COPD, diabetes, and chronic renal failure. Patient was admitted to the hospital with mostly 3 days history of increased shortness of breath, productive cough with greenish sputum, but she had no fever no chills, no hemoptysis, and no chest pain. Patient is also known to have history of LV dysfunction, ejection fraction is about 40%, she has history of moderate to severe mitral regurgitation and some mild pulmonary hypertension. At any rate her chest x-ray on admission showed a new small left pleural effusion, mild prominence of the pulmonary vasculature, but no evidence of pneumonia, and no evidence of significant interstitial lung disease. Patient was admitted, treated with bronchodilators, diuretics, and during my evaluation, the patient was feeling great. She had no cough no wheezing no shortness of breath no chest pain. No headaches no blurred vision no dizziness. No nausea no vomiting no abdominal pain no melena no hematemesis is no dysuria and no frequency no urgency. Again patient made basically a dramatic improvement overnight. All workup since admission was reviewed including her chest x-ray and her labs. Review of Systems 14 point review of systems were obtained, please refer to pertinent positives in HPI, otherwise remaining systems are negative Past Medical History Past Medical History: Heart Failure, COPD, Diabetes Mellitus, Hyperlipidemia, Hypertension, Renal Disease Additional Past Medical History / Comment(s): heart transplant from [facility] on May 2012. DM due to prednisone taking Januvia at home. History of Any Multi-Drug Resistant Organisms: None Reported Past Surgical History: Cholecystectomy, Hysterectomy, Joint Replacement, Orthopedic Surgery Additional Past Surgical History / Comment(s): heart transplant 2013, sinus, carpal tunnel, left knee replacement. *40 stents in her old heart Past Anesthesia/Blood Transfusion Reactions: No Reported Reaction Past Psychological History: No Psychological Hx Reported Smoking Status: Former smoker Past Alcohol Use History: None Reported Past Drug Use History: None Reported - Past Family History Father Family Medical History: Cancer Additional Family Medical History / Comment(s): melanoma Mother Family Medical History: Cancer Additional Family Medical History / Comment(s): rectal Medications and Allergies Home Medications Medication Instructions Recorded Confirmed Type Aspirin 81 mg PO DAILY 03/28/17 04/02/18 History Ferrous Sulfate [Iron (65 MG 325 mg PO BID 03/28/17 04/02/18 History Elemental)] Omeprazole 20 mg PO DAILY 03/28/17 04/02/18 History Pravastatin Sodium [Pravachol] 40 mg PO HS 03/28/17 04/02/18 History Tacrolimus [Prograf] 2 mg PO DAILY 03/28/17 04/02/18 History Allergy Tabotc(Unknown) 1 tab PO DAILY 06/13/17 04/02/18 History Mycophenolate Mofetil [Cellcept] 1,250 mg PO BID 07/17/17 04/02/18 History predniSONE 5 mg PO DAILY 07/17/17 04/02/18 History valGANciclovir [Valcyte] 450 mg PO QAM 07/17/17 04/02/18 History Albuterol Inhaler [Ventolin Hfa 2 puff INHALATION RT-Q4H PRN 02/01/18 04/02/18 History Inhaler] Citalopram Hydrobromide [CeleXA] 20 mg PO DAILY 02/01/18 04/02/18 History Cyclobenzaprine [Flexeril] 10 mg PO Q8H 02/01/18 04/02/18 History Empagliflozin [Jardiance] 25 mg PO DAILY 02/01/18 04/02/18 History Ipratropium-Albuterol Nebulize 3 ml INHALATION RT-Q6H PRN 02/01/18 04/02/18 History [Duoneb 0.5 mg-3 mg/3 ml Soln] Lisinopril [Zestril] 5 mg PO DAILY 02/01/18 04/02/18 History Magnesium Oxide [Mag-Ox] 400 mg PO DAILY 02/01/18 04/02/18 History Multivitamins, Thera [Multivitamin 1 tab PO DAILY 02/01/18 04/02/18 History (formulary)] Potassium Chloride ER [K-Dur 10] 10 meq PO DAILY 02/01/18 04/02/18 History Tacrolimus [Prograf] 2.5 mg PO HS 02/01/18 04/02/18 History Varenicline [Chantix Continuing 1 mg PO BID 02/01/18 04/02/18 History Pack] Zolpidem [Ambien] 10 mg PO HS PRN 02/01/18 04/02/18 History Metoprolol Succinate (ER) [Toprol 25 mg PO BID #60 tab.er.24h 02/03/18 04/02/18 Rx XL] Furosemide [Lasix] 40 mg PO BID 04/02/18 04/02/18 History Allergies Allergy/AdvReac Type Severity Reaction Status Date / Time morphine Allergy Rash/Hives Verified 04/02/18 21:31 sulfamethoxazole Allergy Dyspnea Verified 04/02/18 21:31 [From Bactrim] trimethoprim [From Bactrim] Allergy Dyspnea Verified 04/02/18 21:31 meperidine [From Demerol] AdvReac Hallucinati Verified 04/02/18 21:31 ons Physical Exam Vitals: Vital Signs Temp Pulse Pulse Resp BP Pulse Ox 04/04/18 12:25 73 04/04/18 12:14 72 04/04/18 12:00 97.9 F 107 H 18 96/62 94 L 04/04/18 08:35 78 04/04/18 08:21 74 04/04/18 08:00 107 H 18 04/04/18 07:57 97.5 F L 107 H 18 98/66 94 L 04/04/18 04:00 97.5 F L 109 H 18 114/79 95 04/04/18 03:32 18 04/04/18 00:00 117 H 18 114/81 96 04/03/18 20:59 78 04/03/18 20:44 78 04/03/18 20:00 97.5 F L 101 H 18 113/66 95 04/03/18 16:41 78 04/03/18 16:31 76 04/03/18 16:00 97.4 F L 120 H 18 130/86 93 L Intake and Output 04/04/18 04/04/18 04/04/18 06:59 14:59 22:59 Intake Total 240 360 Balance 240 360 Intake: Oral 240 360 Other: # Voids 1 Weight 72.1 kg Physical Exam: Revealed a 57-year-old female in no distress. Head: Atraumatic normocephalic. Lymphatics: No lymphadenopathy. HEENT:[Neck is supple.] [No neck masses.] [No thyromegaly.] [No JVD.] PERRLA, EOMI, no icterus. Chest: [Diminished breath sound bilaterally, no crackles nor rhonchi no wheezes , no chest wall tenderness. Symmetrical chest expansion noted..] Cardiac Exam: [Normal S1 and S2, no S3 gallop, 2/6 systolic murmur thought the precordium..] Abdomen: [Soft, nontender, no megaly, no rebound, no guarding, normal bowel sounds.] Extremities: [No clubbing, no edema, no cyanosis.] Neurological Exam: [No focal neurologic deficit. Skin: No rashes. Psychiatric: Normal mood affect and mental status examination.] Results - Laboratory Findings CBC and BMP: 04/03/18 09:26 04/02/18 21:04 PT/INR, D-dimer PT 10.9 sec (9.0-12.0) 04/02/18 21:04 INR 1.0 (<1.2) 04/02/18 21:04 Abnormal lab findings: Abnormal Labs 04/02/18 04/02/18 04/02/18 21:04 21:04 21:04 MCH 24.9 L MCHC 30.9 L RDW 16.0 H Neutrophils # 8.1 H Glucose 121 H POC Glucose (mg/dL) Hemoglobin A1c Troponin I 0.079 H* LDL Cholesterol, Calc HDL Cholesterol 04/03/18 04/03/18 04/03/18 03:24 03:24 09:26 MCH MCHC RDW Neutrophils # Glucose POC Glucose (mg/dL) Hemoglobin A1c Troponin I 0.077 H* 0.068 H* LDL Cholesterol, Calc 105 H HDL Cholesterol 26 L 04/03/18 04/03/18 04/03/18 09:26 09:26 11:31 MCH 24.7 L MCHC 29.3 L RDW 15.8 H Neutrophils # Glucose POC Glucose (mg/dL) 145 H Hemoglobin A1c 7.0 H Troponin I LDL Cholesterol, Calc HDL Cholesterol 04/03/18 04/03/18 04/04/18 16:25 19:54 05:45 MCH MCHC RDW Neutrophils # Glucose POC Glucose (mg/dL) 153 H 176 H 229 H Hemoglobin A1c Troponin I LDL Cholesterol, Calc HDL Cholesterol 04/04/18 11:06 MCH MCHC RDW Neutrophils # Glucose POC Glucose (mg/dL) 159 H Hemoglobin A1c Troponin I LDL Cholesterol, Calc HDL Cholesterol - Diagnostic Findings Chest x-ray: image reviewed (As noted in HPI.) Assessment and Plan Assessment: Impression: 1 acute exacerbation of COPD, 2 cardiomyopathy and LV dysfunction, previous cardiac transplant in 2012. 3 small pleural effusion, felt to be cardiac in nature unless for otherwise. Patient may have mild component of systolic congestive heart failure/chronic. Will likely resolve with Lasix which was started on admission. 4 nicotine dependence syndrome, patient was counseled regarding smoking cessation. 5 benign essential hypertension 6 acute purulent tracheobronchitis. 7 type 2 diabetes without complications. Recommendation: Continue present treatment plan including bronchodilators, antibiotics, diuretics, resume her usual cardiac meds, consider discharge planning in the next 24 hours, and follow-up on outpatient basis. Patient has been seen by Dr. potts in the past. She could see him back on follow-up in the next 2 weeks. Follow-up chest x-ray in a.m. Time with Patient: Greater than 30
[2018-04-04 16:30] LABS: Glucose,Whole Blood 247 mg/dL (75-99)
[2018-04-04] MEDS: predniSONE 10 MG TAB PO SCH (16:51)
[2018-04-04] MEDS: ZOLPIDEM 10 MG TAB PO PRN (20:58)
[2018-04-04] MEDS: PRAVASTATIN SODIUM 40 MG TAB PO SCH (21:00)
[2018-04-04 21:02] LABS: Glucose,Whole Blood 359 mg/dL (75-99)
[2018-04-05] MEDS ORDERED: MAGNESIUM OXIDE 400 MG TAB PO STA (00:17)
[2018-04-05 05:45] LABS: Glucose,Whole Blood 139 mg/dL (75-99)
[2018-04-05] MEDS: FERROUS SULFATE 325 MG TAB PO SCH (06:06)
[2018-04-05] MEDS: CYCLOBENZAPRINE 10 MG TAB PO SCH ×2 (06:06→11:33)
[2018-04-05] MEDS: INSULIN ASPART 100 UNIT/ML 1 ML 10 ML VIAL SQ SCH ×2 (06:07→11:33)
[2018-04-05] MEDS: PANTOPRAZOLE 40 MG TABLET PO SCH (06:08)
--- NOTE | 2018-04-05 06:08 | PN ---
PROGRESS NOTE DATE OF SERVICE: 04/04/2018 This 57-year-old woman who was admitted with COPD acute exacerbation also had continued ongoing nicotine dependence. Patient with history of cardiac transplant. No chest pain or palpitations. No fever. PHYSICAL EXAMINATION: On exam, alert and oriented x3. Pulse 112, blood pressure 99/66, respirations 18, temperature 98.1, pulse ox 93% on room air. HEENT: Conjunctivae normal. NECK: No jugular venous distention. CARDIOVASCULAR: S1, S2 muffled. RESPIRATORY: Breath sounds diminished at the bases. Bilateral scattered rhonchi and crackles. Abdomen is soft, nontender. LEGS: No edema, no swelling. NERVOUS SYSTEM: No focal deficits. LABS: Accu-Cheks 359. Other labs are noted. Troponin 0.068. ASSESSMENT: 1. Chronic obstructive pulmonary disease acute exacerbation with acute purulent tracheobronchitis. 2. Continued ongoing nicotine dependence. 3. History of cardiac transplant in 2012 for ischemic cardiomyopathy. 4. History of congestive heart failure. 5. History of chronic obstructive pulmonary disease. 6. Diabetes mellitus type 2 with hyperglycemia. 7. Hypertension. 8. Hyperlipidemia. 9. History of cholecystectomy. 10.History of nicotine dependence. RECOMMENDATIONS AND DISCUSSION: Recommend continue to current medications. Continues with symptomatic treatment. Taper the steroids. Continue the bronchodilators. Cardiology is also recommending transfer to [facility] for cardiac transplant needed for further evaluation. We will closely monitor. Further recommendations to follow. MMODL / IJN: [id number] /
[2018-04-05] MEDS: IPRATROPIUM-ALBUTEROL 3 ML NEB INHALATION SCH ×2 (07:04→11:06)
[2018-04-05] MEDS: SYMBICORT 160-4.5 MCG INHALER INHALATION SCH (07:04)
[2018-04-05 08:43] VITALS: TEMP 98
[2018-04-05] MEDS: ASPIRIN 81 MG PO SCH (08:56)
[2018-04-05] MEDS: FUROSEMIDE 10 MG/ML 4 ML VIAL IV SCH (08:56)
[2018-04-05] MEDS: CITALOPRAM HYDROBROMIDE 20 MG TAB PO SCH (08:56)
[2018-04-05] MEDS: MYCOPHENOLATE MOFETIL 500 MG TAB PO SCH (08:57)
[2018-04-05] MEDS: LISINOPRIL 5 MG TAB PO SCH (08:57)
[2018-04-05] MEDS: predniSONE 10 MG TAB PO SCH (08:57)
[2018-04-05] MEDS: METOPROLOL SUCCINATE (ER) 25 MG TAB.ER.24H PO SCH (08:57)
[2018-04-05] MEDS: MYCOPHENOLATE MOFETIL 250 MG CAP PO SCH (08:57)
[2018-04-05] MEDS: HEPARIN SODIUM,PORCINE 5,000 UNIT/ML 1 ML VIAL SQ SCH (08:57)
[2018-04-05] MEDS: POTASSIUM CHLORIDE ER 10 MEQ TAB.ER.PRT PO SCH (08:57)
[2018-04-05] MEDS: VARENICLINE 1 MG TAB PO SCH (08:58)
[2018-04-05] MEDS: TACROLIMUS 0.5 MG CAP PO SCH (08:58)
[2018-04-05] MEDS: NON-FORMULARY DRUG (Empagliflozin [Jardiance] 25 MG) PO SCH (09:01)
--- NOTE | 2018-04-05 09:02 | XR ---
EXAMINATION TYPE: XR chest 1V portable DATE OF EXAM: 04/05/2018 COMPARISON: 04/02/2018 HISTORY: Pleural effusion history. TECHNIQUE: Single frontal view of the chest is obtained. FINDINGS: There is a worsening small left pleural effusion with associated left basilar airspace dis ease. Right lung remains clear. Post surgical changes of the chest are seen in combination with cardi omegaly. Surgical clips are noted overlying the left medial axilla. No sizable pneumothorax. No right pleural effusion. IMPRESSION: Worsening left pleural effusion with associated left-sided airspace disease, likely atel ectasis.
[2018-04-05] MEDS: MULTIVITAMINS, THERA 1 EACH TAB PO SCH (09:03)
[2018-04-05] MEDS: HYDROcodone/APAP 7.5-325MG 1 EACH TAB PO PRN (09:12)
--- NOTE | 2018-04-05 10:38 | P.PN ---
Subjective Progress Note Date: 04/05/18 This is a pleasant 57-year-old female with known history of heart transplant in 2012 for which she follows at [facility], history of COPD , nicotine dependence, hyperlipidemia, diabetes, and renal failure. She presents to the hospital on this occasion with symptoms of progressively worsening shortness of breath over 3 day duration. She also states that she's been coughing up a significant amount of green sputum. She denies any fever or chills. Denies any overt chest discomfort. The patient did have an echocardiogram with Doppler study performed in January of this year which revealed an ejection fraction of 40-45%. Moderate to severe mitral regurgitation was present, severe tricuspid regurg. Her EKG on this admission showed a sinus tachycardia with right bundle branch block pattern and left anterior fascicular block. Chest x-ray shows a new small left pleural effusion , mild pulmonary congestion with no overt heart failure. Blood pressure 122/80 with a heart rate of 110, 91% on 1 L of oxygen. White blood cell count 10.2, hemoglobin 12.8, platelet count 327. Sodium 141, potassium 3.8, BUN 14, creatinine 0.7. Troponin 0.079, 0.077. TSH level2.6. Drug screen negative. At the time of my examination this morning, patient states she still feels significantly short of breath and wheezy. Continues to cough up significant amount of yellow and green sputum. 04/04/2018 BNP level came back to be 8840. We will discontinue the oral Lasix and start the patient on IV Lasix today. Echocardiogram with Doppler study was also reviewed by Dr. VC Shields which revealed a reduced LV function. We will speak with the transplant team at [facility] tomorrow and arrange for a transfer there for the patient. This was explained to the patient in detail. Overall she is feeling significantly better today. Blood pressure 96/60 with a heart rate in the 70s. 04/05/2018 Patient was seen and examined this morning, overall did well through the night last night. Breathing is overall stable. I did have a discussion with Dr. Castelan at [facility] transplant team, arrangements are being made for the patient to transfer there. His request was that the patient received 1 g of Solu-Medrol now in the interim, as soon as a bed is available the patient will transfer. Blood pressure this morning 102/70 with a heart rate in the 90s to low 100s, 93% on room air. Objective - Vital Signs Vital signs: Vital Signs Temp 98.0 F 04/05/18 08:00 Pulse 111 H 04/05/18 08:00 Resp 16 04/05/18 08:00 BP 103/71 04/05/18 08:00 Pulse Ox 93 L 04/05/18 08:00 Intake & Output 04/04/18 04/05/18 04/05/18 18:59 06:59 18:59 Intake Total 360 240 Balance 360 240 Weight 72.2 kg Intake: Oral 360 240 Other: # Voids 1 - Exam PHYSICAL EXAMINATION: GENERAL: 57-year-old female in no acute distress at the time of my examination HEENT: Head is atraumatic, normocephalic. Pupils equal, round. Sclera anicteric. Conjunctiva are clear. Mucous membranes of the mouth are moist. Neck is supple. There is elevated jugular venous pressure. No carotid bruit is heard. HEART EXAMINATION: Heart S1, S2 systolic murmur is heard . CHEST EXAMINATION: Lungs reveal scattered coarse rhonchi and wheezing throughout ABDOMEN: Soft, nontender. Bowel sounds are heard. No organomegaly noted. EXTREMITIES: 2+ peripheral pulses with no evidence of peripheral edema and no calf tenderness noted. NEUROLOGIC patient is awake, alert and oriented 3 . . - Labs CBC & Chem 7: 04/03/18 09:26 04/02/18 21:04 Labs: Abnormal Lab Results - Last 24 Hours (Table) 04/04/18 04/04/18 04/04/18 Range/Units 11:06 16:16 21:00 POC Glucose (mg/dL) 159 H 247 H 359 H (75-99) mg/dL 04/05/18 Range/Units 05:44 POC Glucose (mg/dL) 139 H (75-99) mg/dL Assessment and Plan Plan: Assessment and plan #1 symptoms of progressively worsening shortness of breath, possible COPD exacerbation with acute tracheobronchitis. #2 history of cardiac transplant in 2012 at [facility] #3 hypertension #4 hyperlipidemia #5 diabetes #6 nicotine dependence #7 COPD #8 abnormality in troponins, no significant rise and fall pattern, likely secondary to hypoxia. Patient denies chest discomfort. On review of prior admissions, patient is noted to have abnormality in troponins. Echocardiogram with Doppler study was performed in January of this year which revealed an ejection fraction of 40-45%, severe mitral regurgitation and tricuspid regurg. #9 systolic congestive heart failure acute on chronic Plan We will continue current dose of IV Lasix. Patient will also given 1 g of Solu- Medrol as per recommendation of Dr. Castelan at the heart failure center at [facility]. Patient will be transferred to [facility] today under the care of the transplant team. DNP note has been reviewed, I agree with a documented findings and plan of care. Patient was seen and examined. .
[2018-04-05 11:12] LABS: Glucose,Whole Blood 163 mg/dL (75-99)
[2018-04-05 11:33] VITALS: BP 104/71; PULSE 111; RESP 14
[2018-04-05 12:20] LABS: Calcium 9.2 mg/dL (8.4-10.2); Potassium 4.3 mmol/L (3.5-5.1)
--- NOTE | 2018-04-05 14:53 | P.PN ---
Subjective Progress Note Date: 04/05/18 Principal diagnosis: Acute exacerbation of COPD, cardiomyopathy, LV dysfunction This is a 57-year-old female with history of cardiac transplant in 2012, history of nicotine dependence, COPD, diabetes, and chronic renal failure. Patient was admitted to the hospital with mostly 3 days history of increased shortness of breath, productive cough with greenish sputum, but she had no fever no chills, no hemoptysis, and no chest pain. Patient is also known to have history of LV dysfunction, ejection fraction is about 40%, she has history of moderate to severe mitral regurgitation and some mild pulmonary hypertension. At any rate her chest x-ray on admission showed a new small left pleural effusion, mild prominence of the pulmonary vasculature, but no evidence of pneumonia, and no evidence of significant interstitial lung disease. Patient was admitted, treated with bronchodilators, diuretics, and during my evaluation, the patient was feeling great. She had no cough no wheezing no shortness of breath no chest pain. No headaches no blurred vision no dizziness. No nausea no vomiting no abdominal pain no melena no hematemesis is no dysuria and no frequency no urgency. Again patient made basically a dramatic improvement overnight. All workup since admission was reviewed including her chest x-ray and her labs On 04/05/2018 patient seen again in follow-up on selective care unit, still having dyspnea with any exertion, room air pulse ox is 96%. Patient is on nebulized bronchodilators, high-dose Solu-Medrol infusions, Prograf, Symbicort. She is receiving IV Lasix. Cardiology is following, today's labs have been reviewed, sodium 138, potassium is 4.3, chloride is 103, CO2 is 25, BUN is 31 and creatinine is 1.10. Patient is being transferred to [facility] where she received her cardiac transplant in 2012. He is being transferred there under the care of Dr. Castelan and the transplant team. Objective - Vital Signs Vital signs: Vital Signs Temp 98.0 F 04/05/18 08:00 Pulse 111 H 04/05/18 12:00 Resp 14 04/05/18 12:00 BP 104/71 04/05/18 11:32 Pulse Ox 96 04/05/18 11:32 Intake & Output 04/04/18 04/05/18 04/05/18 18:59 06:59 18:59 Intake Total 360 420 Balance 360 420 Weight 72.2 kg Intake: Oral 360 420 Other: # Voids 1 - Exam Physical Exam: Revealed a 57-year-old female in no distress. Head: Atraumatic normocephalic. Lymphatics: No lymphadenopathy. HEENT:[Neck is supple.] [No neck masses.] [No thyromegaly.] [No JVD.] PERRLA, EOMI, no icterus. Chest: [Diminished breath sound bilaterally, no crackles nor rhonchi no wheezes , no chest wall tenderness. Symmetrical chest expansion noted..] Cardiac Exam: [Normal S1 and S2, no S3 gallop, 2/6 systolic murmur thought the precordium..] Abdomen: [Soft, nontender, no megaly, no rebound, no guarding, normal bowel sounds.] Extremities: [No clubbing, no edema, no cyanosis.] Neurological Exam: [No focal neurologic deficit. Skin: No rashes. Psychiatric: Normal mood affect and mental status examination.] - Labs CBC & Chem 7: 04/03/18 09:26 04/05/18 11:46 Labs: Abnormal Lab Results - Last 24 Hours (Table) 04/04/18 04/04/18 04/05/18 Range/Units 16:16 21:00 05:44 BUN (7-17) mg/dL Creatinine (0.52-1.04) mg/dL Glucose (74-99) mg/dL POC Glucose (mg/dL) 247 H 359 H 139 H (75-99) mg/dL 04/05/18 04/05/18 Range/Units 11:11 11:46 BUN 31 H (7-17) mg/dL Creatinine 1.10 H (0.52-1.04) mg/dL Glucose 162 H (74-99) mg/dL POC Glucose (mg/dL) 163 H (75-99) mg/dL Assessment and Plan Plan: Assessment: 1 acute exacerbation of COPD, 2 cardiomyopathy and LV dysfunction, previous cardiac transplant in 2012. 3 small pleural effusion, felt to be cardiac in nature unless for otherwise. Patient may have mild component of systolic congestive heart failure/chronic. Will likely resolve with Lasix which was started on admission. 4 nicotine dependence syndrome, patient was counseled regarding smoking cessation. 5 benign essential hypertension 6 acute purulent tracheobronchitis. 7 type 2 diabetes without complications. Plan: Transfer to the [facility] is in progress under the care of the transplant team. Otherwise continue with the current medical treatment, IV steroids, nebulized bronchodilators, and IV Lasix. Today's chest x-ray has been reviewed with Dr. Dr. Bella, showed worsening left pleural effusion with associated left-sided airspace disease likely atelectasis. I performed a history & physical examination of the patient and discussed their management with my nurse practitioner, Alis Kramer. I reviewed the nurse practitioner's note and agree with the documented findings and plan of care. Lung sounds are positive for diminished, with scattered rales. The findings and the impression was discussed with the patient. I attest to the documentation by the nurse practitioner. Time with Patient: Less than 30
--- NOTE | 2018-04-05 15:31 | CDI ---
Documentation Clarification Form Date: 04/05/2018 3:21:07 PM From: Tanna Vázquez Admit Date: 04/02/2018 11:29:00 PM Patient Name: Syl Coffey Visit Number: [id number] ATTENTION: The Clinical Documentation Specialists (CDI) and [facility] Coding Staff appreciate your assistance in clarifying documentation. Please respond to the clarification below the line at the bottom and electronically sign. The CDI & [facility] Coding staff will review the response and follow-up if needed. Please note: Queries are made part of the Legal Health Record. If you have any questions, please contact the author of this message via ITS. Dr. Angel Guerrero CKD is documented and requires further specificity. History/Risk Factors: Heart transplant, ischemic cardiomyopathy, COPD, DM, nicotine dependence Clinical Indicators: Current BUN: CR: .74/1.1 GFR: >90/56 01/31/18 Patients Baseline BUN/CR/GFR: 9/.7/>90 Treatment: IVF In order to capture the severity of condition, please clarify if the condition signifies: CKD Stage 1 (GFR > 90) CKD Stage 2 (GFR 60-89) CKD Stage 3 (GFR 30-59) CKD Stage 4 (GFR 15-29) CKD Stage 5 (GFR <15) ESRD Other, please specify Unable to determine (Last Revision: June 2017) CKD Stage 3 (GFR 30-59) MTDD
== END 2018-04-05 16:31 | disposition short-term general hospital (02) | DRG 190 ==
LOC: EC 20:16 → 3SCARD 23:29
PROVIDERS: ADMIT Hospitalist; ATTEND Hospitalist
DX: J44.1 Chronic obstructive pulmonary disease with (acute) exacerbation (principal); I50.23 Acute on chronic systolic (congestive) heart failure; I13.0 Hypertensive heart and chronic kidney disease with heart failure and stage 1 through stage 4 chronic kidney disease, or unspecified chronic kidney disease; I25.811 Atherosclerosis of native coronary artery of transplanted heart without angina pectoris; I45.2 Bifascicular block; J44.0 Chronic obstructive pulmonary disease with (acute) lower respiratory infection; J20.9 Acute bronchitis, unspecified; E09.65 Drug or chemical induced diabetes mellitus with hyperglycemia; E78.5 Hyperlipidemia, unspecified; Z71.6 Tobacco abuse counseling; F17.210 Nicotine dependence, cigarettes, uncomplicated; I08.1 Rheumatic disorders of both mitral and tricuspid valves; I25.5 Ischemic cardiomyopathy; I27.20 Pulmonary hypertension, unspecified; N18.3 Chronic kidney disease, stage 3 (moderate); R09.02 Hypoxemia; Z79.82 Long term (current) use of aspirin; Z79.84 Long term (current) use of oral hypoglycemic drugs; Z79.899 Other long term (current) drug therapy; T38.0X5A Adverse effect of glucocorticoids and synthetic analogues, initial encounter; Z80.8 Family history of malignant neoplasm of other organs or systems; Z90.49 Acquired absence of other specified parts of digestive tract; Z90.710 Acquired absence of both cervix and uterus; Z88.5 Allergy status to narcotic agent; Z88.2 Allergy status to sulfonamides; Z79.52 Long term (current) use of systemic steroids; Z96.652 Presence of left artificial knee joint; R74.8 Abnormal levels of other serum enzymes
CPT/HCPCS: 36415; 71045; 71046; 80048; 80053; 80061; 80306; 82550; 82553; 83036; 83735; 83880; 84443; 84484; 85025; 85027; 85610; 85730; 93005; 93306; 94640; 94760; 96360; 96361; 99285

== ENCOUNTER 2018-04-27 23:28 | Inpatient (IN) | payer MEDICARE, OTHER ==
[2018-04-28 01:05] LABS: Anisocytosis Slight; Basophils % (A) 0 %; Eosinophils # (A) 0.1 k/uL (0-0.7); Eosinophils % (A) 2 %; HCT 40.3 % (34.0-46.0); HGB 12.7 gm/dL (11.4-16.0); Hypochromasia Slight; Lymphocytes # (A) 1.2 k/uL (1.0-4.8); Lymphocytes % (A) 15 %; MCH 25.1 pg (25.0-35.0); MCHC 31.4 g/dL (31.0-37.0); MCV 79.8 fL (80.0-100.0); Mean Platelet Volume 7.3; Microcytosis Slight; Monocytes # (A) 0.3 k/uL (0-1.0); Monocytes % (A) 4 %; Neutrophils # (A) 6.1 k/uL (1.3-7.7); Neutrophils % (A) 76 %; Platelet Count 422 k/uL (150-450); RBC 5.04 m/uL (3.80-5.40); RDW 17.8 % (11.5-15.5); WBC 8.1 k/uL (3.8-10.6)
[2018-04-28] MEDS ORDERED: HYDROcodone/APAP 5-325MG 1 EACH TAB PO STA (01:09)
[2018-04-28 01:12] LABS: Calcium 9.7 mg/dL (8.4-10.2); Magnesium 1.5 mg/dL (1.6-2.3); Potassium 4.7 mmol/L (3.5-5.1); Total Bilirubin 0.7 mg/dL (0.2-1.3); Total Protein 6.6 g/dL (6.3-8.2)
[2018-04-28 01:14] LABS: INR 1.1 (<1.2); Partial Thromboplastin Time 23.3 sec (22.0-30.0); Prothrombin Time 11.2 sec (9.0-12.0)
[2018-04-28] MEDS ORDERED: HYDROmorphone 1 MG/ML 1 ML SYRINGE IVP STA (01:33)
[2018-04-28 01:35] LABS: Creatine Kinase MB 0.9 ng/mL (0.0-2.4)
[2018-04-28] MEDS ORDERED: NITROGLYCERIN OINT 1 INCH/GM PACKET TOPICAL STA (01:35)
[2018-04-28] MEDS ORDERED: FUROSEMIDE 10 MG/ML 2 ML VIAL IV STA (01:35)
--- NOTE | 2018-04-28 01:36 | XR ---
EXAMINATION TYPE: XR chest 2V DATE OF EXAM: 04/28/2018 COMPARISON: 04/05/2018 HISTORY: Difficulty breathing TECHNIQUE: Frontal and lateral views of the chest are obtained. FINDINGS: Heart appears enlarged. There are sternal wires. There are chest leads. There are clips ov er the left axilla. There is some infiltrate in the right lower lobe posteriorly. There is coarse den sity in the left lower lobe also. Bony thorax appears intact. IMPRESSION: Cardiomegaly. There are new lower lobe pulmonary infiltrates and atelectasis compared to last exam. Mild pulmonary congestion is new. No definite heart failure.
[2018-04-28 01:40] LABS: Troponin I 0.038 ng/mL (0.000-0.034)
[2018-04-28] MEDS ORDERED: ZOLPIDEM 10 MG TAB PO PRN (04:58)
[2018-04-28] MEDS ORDERED: ALBUTEROL NEBULIZED 2.5 MG/3 ML INHALATION PRN (04:58)
[2018-04-28] MEDS ORDERED: IPRATROPIUM-ALBUTEROL 3 ML NEB INHALATION PRN (04:58)
[2018-04-28] MEDS ORDERED: ONDANSETRON 4 MG/2 ML VIAL IVP STA ×2 (06:00→06:01)
[2018-04-28 06:15] LABS: Glucose,Whole Blood 283 mg/dL (75-99)
[2018-04-28 06:34] VITALS: BMI 25.7
[2018-04-28] MEDS ORDERED: PANTOPRAZOLE 40 MG TABLET PO SCH (07:30)
[2018-04-28 08:57] LABS: Troponin I 1.32 ng/mL (0.000-0.034)
[2018-04-28] MEDS ORDERED: METOPROLOL SUCCINATE (ER) 25 MG TAB.ER.24H PO SCH ×2 (09:00→16:00)
[2018-04-28] MEDS ORDERED: NON-FORMULARY DRUG (Empagliflozin [Jardiance] 25 MG) PO SCH (09:00)
[2018-04-28] MEDS ORDERED: FUROSEMIDE 20 MG TAB PO SCH (09:00)
[2018-04-28] MEDS ORDERED: FERROUS SULFATE 325 MG TAB PO SCH (09:00)
[2018-04-28] MEDS ORDERED: MAGNESIUM OXIDE 400 MG TAB PO SCH (09:00)
[2018-04-28] MEDS ORDERED: predniSONE 5 MG TAB PO SCH (09:00)
[2018-04-28] MEDS ORDERED: MYCOPHENOLATE MOFETIL 250 MG CAP PO SCH (09:00)
[2018-04-28] MEDS ORDERED: LISINOPRIL 5 MG TAB PO SCH (09:00)
[2018-04-28] MEDS ORDERED: POTASSIUM CHLORIDE ER 10 MEQ TAB.ER.PRT PO SCH (09:00)
[2018-04-28] MEDS ORDERED: TACROLIMUS 1 MG CAP PO SCH (09:00)
[2018-04-28] MEDS ORDERED: CITALOPRAM HYDROBROMIDE 20 MG TAB PO SCH (09:00)
--- NOTE | 2018-04-28 09:41 | P.CRDCN ---
History of Present Illness Consult date: 04/28/18 Requesting physician: Angel Guerrero Consult reason: congestive heart failure Chief complaint: Shortness of breath History of present illness: This is a 57-year-old female with known history of heart transplant in 2012 for which she follows at [facility], history of COPD, nicotine dependence, hyperlipidemia, diabetes, renal failure. She presents to the hospital on this occasion with fairly sudden onset of shortness of breath which started 2-3 days ago, prior to that the patient states that she had been doing fairly well. Patient was here in the hospital earlier this month at which time we transferred her directly to [facility] for further care. She had an echocardiogram with Doppler study performed on the fifth of this month with showed an ejection fraction of 25-30%, moderate MR, severe TR, moderate pulmonary hypertension. Patient presented to the emergency room around midnight , there are no notes in the emergency room records. Her blood pressure on arrival here 126/80, heart rate in the 130s, 100% on room air. White blood cell count 8.1, hemoglobin 12.7, platelet count 422. Sodium 140, potassium 4.7 , BUN 25 and creatinine 0.8. Magnesium 1.5. BNP 11,700. Trop .038, 1.3. Chest x-ray shows cardiomegaly, there are new lower lobe pulmonary infiltrates and atelectasis as compared with prior exam. EKG shows a sinus tachycardia with incomplete right bundle branch block pattern. At the time of my examination this morning, patient is quite short of breath, continues to be tachycardic. Past Medical History Past Medical History: Heart Failure, COPD, Diabetes Mellitus, Hyperlipidemia, Hypertension, Renal Disease Additional Past Medical History / Comment(s): heart transplant from [facility] on May 2012. DM due to prednisone taking Januvia at home. History of Any Multi-Drug Resistant Organisms: None Reported Past Surgical History: Cholecystectomy, Hysterectomy, Joint Replacement, Orthopedic Surgery Additional Past Surgical History / Comment(s): heart transplant 2012, sinus, carpal tunnel, left knee replacement. *40 stents in her old heart Past Anesthesia/Blood Transfusion Reactions: No Reported Reaction Smoking Status: Former smoker - Past Family History Father Family Medical History: Cancer Additional Family Medical History / Comment(s): melanoma Mother Family Medical History: Cancer Additional Family Medical History / Comment(s): rectal Medications and Allergies Home Medications Medication Instructions Recorded Confirmed Type Aspirin 81 mg PO DAILY 03/28/17 04/02/18 History Ferrous Sulfate [Iron (65 MG 325 mg PO BID 03/28/17 04/02/18 History Elemental)] Omeprazole 20 mg PO DAILY 03/28/17 04/02/18 History Pravastatin Sodium [Pravachol] 40 mg PO HS 03/28/17 04/02/18 History Tacrolimus [Prograf] 2 mg PO DAILY 03/28/17 04/02/18 History Allergy Tabotc(Unknown) 1 tab PO DAILY 06/13/17 04/02/18 History Mycophenolate Mofetil [Cellcept] 1,250 mg PO BID 07/17/17 04/02/18 History predniSONE 5 mg PO DAILY 07/17/17 04/02/18 History valGANciclovir [Valcyte] 450 mg PO QAM 07/17/17 04/02/18 History Albuterol Inhaler [Ventolin Hfa 2 puff INHALATION RT-Q4H PRN 02/01/18 04/02/18 History Inhaler] Citalopram Hydrobromide [CeleXA] 20 mg PO DAILY 02/01/18 04/02/18 History Cyclobenzaprine [Flexeril] 10 mg PO Q8H 02/01/18 04/02/18 History Empagliflozin [Jardiance] 25 mg PO DAILY 02/01/18 04/02/18 History Ipratropium-Albuterol Nebulize 3 ml INHALATION RT-Q6H PRN 02/01/18 04/02/18 History [Duoneb 0.5 mg-3 mg/3 ml Soln] Lisinopril [Zestril] 5 mg PO DAILY 02/01/18 04/02/18 History Magnesium Oxide [Mag-Ox] 400 mg PO DAILY 02/01/18 04/02/18 History Multivitamins, Thera [Multivitamin 1 tab PO DAILY 02/01/18 04/02/18 History (formulary)] Potassium Chloride ER [K-Dur 10] 10 meq PO DAILY 02/01/18 04/02/18 History Tacrolimus [Prograf] 2.5 mg PO HS 02/01/18 04/02/18 History Varenicline [Chantix Continuing 1 mg PO BID 02/01/18 04/02/18 History Pack] Zolpidem [Ambien] 10 mg PO HS PRN 02/01/18 04/02/18 History Metoprolol Succinate (ER) [Toprol 25 mg PO BID #60 tab.er.24h 02/03/18 04/02/18 Rx XL] Furosemide [Lasix] 40 mg PO BID 04/02/18 04/02/18 History Allergies Allergy/AdvReac Type Severity Reaction Status Date / Time morphine Allergy Rash/Hives Verified 04/27/18 23:43 sulfamethoxazole Allergy Dyspnea Verified 04/27/18 23:43 [From Bactrim] trimethoprim [From Bactrim] Allergy Dyspnea Verified 04/27/18 23:43 meperidine [From Demerol] AdvReac Hallucinati Verified 04/27/18 23:43 ons Physical Exam Vitals: Vital Signs Temp Pulse Pulse Resp BP BP Pulse Ox 04/28/18 08:20 96.9 F L 118 H 18 109/74 98 04/28/18 06:29 97.8 F 120 H 20 105/80 95 04/28/18 04:55 115 H 18 121/87 97 04/28/18 02:28 116 H 19 120/88 98 04/28/18 00:24 123 H 18 122/93 98 04/27/18 23:40 97.6 F 133 H 20 126/84 100 Intake and Output 04/27/18 04/28/18 04/28/18 22:59 06:59 14:59 Intake Total 240 Balance 240 Intake: Oral 240 Other: Weight 70.1 kg Results 04/28/18 00:20 04/28/18 00:20 Cardiac Enzymes 04/28/18 04/28/18 04/28/18 Range/Units 00:20 00:20 07:58 AST 21 (14-36) U/L CK-MB (CK-2) 0.9 14.0 H (0.0-2.4) ng/mL Troponin I 0.038 H* 1.320 H* (0.000-0.034) ng/mL Coagulation 04/28/18 Range/Units 00:20 PT 11.2 (9.0-12.0) sec APTT 23.3 (22.0-30.0) sec CBC 04/28/18 Range/Units 00:20 WBC 8.1 (3.8-10.6) k/uL RBC 5.04 (3.80-5.40) m/uL Hgb 12.7 (11.4-16.0) gm/dL Hct 40.3 (34.0-46.0) % Plt Count 422 (150-450) k/uL Comprehensive Metabolic Panel 04/28/18 Range/Units 00:20 Sodium 140 (137-145) mmol/L Potassium 4.7 (3.5-5.1) mmol/L Chloride 109 H (98-107) mmol/L Carbon Dioxide 21 L (22-30) mmol/L BUN 25 H (7-17) mg/dL Creatinine 0.86 (0.52-1.04) mg/dL Glucose 221 H (74-99) mg/dL Calcium 9.7 (8.4-10.2) mg/dL AST 21 (14-36) U/L ALT 24 (9-52) U/L Alkaline Phosphatase 135 H (38-126) U/L Total Protein 6.6 (6.3-8.2) g/dL Albumin 4.0 (3.5-5.0) g/dL Current Medications Generic Name Dose Route Start Last Admin Trade Name Freq PRN Reason Stop Dose Admin Albuterol/Ipratropium 3 ml 04/28/18 04:58 Duoneb 0.5 Mg-3 Mg/3 Ml Soln INHALATION RT-Q6H PRN Shortness Of Breath Citalopram Hydrobromide 20 mg 04/28/18 09:00 Celexa PO DAILY [facility] Ferrous Sulfate 325 mg 04/28/18 09:00 Feosol PO BID [facility] Furosemide 40 mg 04/28/18 09:00 Lasix PO BID [facility] Lisinopril 5 mg 04/28/18 09:00 Zestril PO DAILY [facility] Magnesium Oxide 400 mg 04/28/18 09:00 Mag-Ox PO DAILY [facility] Metoprolol Succinate 25 mg 04/28/18 09:00 Toprol Xl PO BID [facility] Multivitamins 1 each 04/28/18 12:00 Theragran PO DAILY@1200 [facility] Mycophenolate Mofetil 1,250 mg 04/28/18 09:00 Cellcept PO BID [facility] Non-Formulary Medication 25 mg 04/28/18 09:00 Empagliflozin [Jardiance] PO DAILY [facility] Pantoprazole Sodium 40 mg 04/28/18 07:30 04/28/18 06:10 Protonix PO 40 mg AC-[id number] [facility] Administration Potassium Chloride 10 meq 04/28/18 09:00 K-Dur 10 PO DAILY [facility] Pravastatin Sodium 40 mg 04/28/18 21:00 Pravachol PO HS [facility] Prednisone 5 mg 04/28/18 09:00 PO DAILY [facility] Sodium Chloride 10 ml 04/28/18 09:00 Saline Flush IV BID [facility] Tacrolimus 2.5 mg 04/28/18 21:00 Prograf PO HS [facility] Tacrolimus 2 mg 04/28/18 09:00 Prograf PO DAILY [facility] Valganciclovir 450 mg 04/28/18 09:00 Valcyte PO QAM [facility] Zolpidem Tartrate 10 mg 04/28/18 04:58 Ambien PO HS PRN Insomnia Intake and Output 04/27/18 04/28/18 04/28/18 22:59 06:59 14:59 Intake Total 240 Balance 240 Intake: Oral 240 Other: Weight 70.1 kg 04/28/18 00:20 04/28/18 00:20 EKG Interpretations (text) EKG shows a sinus tachycardia with incomplete right bundle branch block pattern. Assessment and Plan Plan: Assessment and plan #1 systolic congestive heart failure acute on chronic, echo performed on the fifth of this month showed an LV function of 25-30%, severely dilated left atrium, moderate MR, severe TR, moderate pulmonary hypertension.BNP 11,700. #2 sinus tachycardia #3 history of heart transplant at [facility] in 2012 #4 hypertension #5 hyperlipidemia #6 diabetes #7 COPD #8 nicotine dependence #9 elevated troponin, 0.038, 1.3. Plan We'll discontinue the oral Lasix and start the patient on IV Lasix drip. Replace magnesium. I've been in contact with [facility] transplant team, we will transfer the patient as soon as a bed is available. Increase beta bandar as tolerated for more optimal heart rate control. Further recommendations to follow. DNP note has been reviewed, I agree with a documented findings and plan of care. Patient was seen and examined.
[2018-04-28] MEDS ORDERED: FUROSEMIDE 250 MG in SODIUM CHLORIDE 0.9% 225 ML IVP SCH (09:45)
[2018-04-28] MEDS ORDERED: METOPROLOL TARTRATE 50 MG TAB PO STA (09:52)
--- NOTE | 2018-04-28 10:04 | ED ---
SOB HPI - General Chief Complaint: Shortness of Breath Stated Complaint: GABO Time Seen by Provider: 04/27/18 23:45 Source: patient Mode of arrival: wheelchair Limitations: no limitations - History of Present Illness Initial Comments: This patient is a 57 year old woman with history of cardiac transplant, who presents with complaint of nearly one week of worsening shortness of breath. Patient sts that there may also be a small amount of leg swelling that has developed. The patient has also noted about a day to two of aching pain to her left forearm. Patient denies diaphoresis, N/V, chest pain, or syncope. MD Complaint: shortness of breath -: days(s) Consistency: constant Worsens With: lying flat Known History Of: COPD, congestive heart failure, other (Heart transplant) Associated Symptoms: other (lower ext. swelling) Treatments Prior to Arrival: none - Related Data Home Medications Medication Instructions Recorded Confirmed Aspirin 81 mg PO DAILY 03/28/17 04/02/18 Ferrous Sulfate [Iron (65 MG 325 mg PO BID 03/28/17 04/02/18 Elemental)] Omeprazole 20 mg PO DAILY 03/28/17 04/02/18 Pravastatin Sodium [Pravachol] 40 mg PO HS 03/28/17 04/02/18 Tacrolimus [Prograf] 2 mg PO DAILY 03/28/17 04/02/18 Allergy Tabotc(Unknown) 1 tab PO DAILY 06/13/17 04/02/18 Mycophenolate Mofetil [Cellcept] 1,250 mg PO BID 07/17/17 04/02/18 predniSONE 5 mg PO DAILY 07/17/17 04/02/18 valGANciclovir [Valcyte] 450 mg PO QAM 07/17/17 04/02/18 Albuterol Inhaler [Ventolin Hfa 2 puff INHALATION RT-Q4H PRN 02/01/18 04/02/18 Inhaler] Citalopram Hydrobromide [CeleXA] 20 mg PO DAILY 02/01/18 04/02/18 Cyclobenzaprine [Flexeril] 10 mg PO Q8H 02/01/18 04/02/18 Empagliflozin [Jardiance] 25 mg PO DAILY 02/01/18 04/02/18 Ipratropium-Albuterol Nebulize 3 ml INHALATION RT-Q6H PRN 02/01/18 04/02/18 [Duoneb 0.5 mg-3 mg/3 ml Soln] Lisinopril [Zestril] 5 mg PO DAILY 02/01/18 04/02/18 Magnesium Oxide [Mag-Ox] 400 mg PO DAILY 02/01/18 04/02/18 Multivitamins, Thera [Multivitamin 1 tab PO DAILY 02/01/18 04/02/18 (formulary)] Potassium Chloride ER [K-Dur 10] 10 meq PO DAILY 02/01/18 04/02/18 Tacrolimus [Prograf] 2.5 mg PO HS 02/01/18 04/02/18 Varenicline [Chantix Continuing 1 mg PO BID 02/01/18 04/02/18 Pack] Zolpidem [Ambien] 10 mg PO HS PRN 02/01/18 04/02/18 Furosemide [Lasix] 40 mg PO BID 04/02/18 04/02/18 Previous Rx's Medication Instructions Recorded Metoprolol Succinate (ER) [Toprol 25 mg PO BID #60 tab.er.24h 02/03/18 XL] Allergies Allergy/AdvReac Type Severity Reaction Status Date / Time morphine Allergy Rash/Hives Verified 04/27/18 23:43 sulfamethoxazole Allergy Dyspnea Verified 04/27/18 23:43 [From Bactrim] trimethoprim [From Bactrim] Allergy Dyspnea Verified 04/27/18 23:43 meperidine [From Demerol] AdvReac Hallucinati Verified 04/27/18 23:43 ons Review of Systems ROS Statement: Those systems with pertinent positive or pertinent negative responses have been documented in the HPI. ROS Other: All systems not noted in ROS Statement are negative. Constitutional: Denies: fever, chills, weakness Respiratory: Reports: cough, dyspnea. Denies: wheezes, hemoptysis Cardiovascular: Reports: orthopnea, edema. Denies: chest pain, palpitations, dyspnea on exertion, syncope Gastrointestinal: Denies: abdominal pain, nausea, vomiting, diarrhea Genitourinary: Denies: dysuria, hematuria Musculoskeletal: Denies: back pain Skin: Denies: rash Neurological: Denies: headache, weakness, numbness Past Medical History Past Medical History: Heart Failure, COPD, Diabetes Mellitus, Hyperlipidemia, Hypertension, Renal Disease Additional Past Medical History / Comment(s): heart transplant from [facility] on May 2012. DM due to prednisone taking Januvia at home. History of Any Multi-Drug Resistant Organisms: None Reported Past Surgical History: Cholecystectomy, Hysterectomy, Joint Replacement, Orthopedic Surgery Additional Past Surgical History / Comment(s): heart transplant 2012, sinus, carpal tunnel, left knee replacement. *40 stents in her old heart Past Anesthesia/Blood Transfusion Reactions: No Reported Reaction Smoking Status: Former smoker - Past Family History Father Family Medical History: Cancer Additional Family Medical History / Comment(s): melanoma Mother Family Medical History: Cancer Additional Family Medical History / Comment(s): rectal General Exam Limitations: no limitations General appearance: alert, in no apparent distress Head exam: Present: atraumatic, normocephalic Eye exam: Present: normal appearance. Absent: scleral icterus, conjunctival injection ENT exam: Present: normal oropharynx Neck exam: Present: normal inspection, full ROM Respiratory exam: Present: wheezes, rales. Absent: rhonchi, stridor Cardiovascular Exam: Present: regular rate, tachycardia, normal heart sounds. Absent: systolic murmur, diastolic murmur, rubs, gallop GI/Abdominal exam: Present: soft. Absent: tenderness, guarding, rebound, rigid , mass Extremities exam: Present: normal inspection, normal capillary refill. Absent: pedal edema, calf tenderness Back exam: Present: normal inspection. Absent: CVA tenderness (R), CVA tenderness (L) Neurological exam: Present: alert Skin exam: Present: warm, dry, intact, normal color. Absent: rash, cyanosis, diaphoretic, erythema, urticaria, vesicles, petechiae, pallor, mottled, abrasion Course Vital Signs 04/27/18 04/28/18 04/28/18 23:40 00:24 02:28 Temperature 97.6 F Pulse Rate 133 H 123 H 116 H Respiratory 20 18 19 Rate Blood Pressure 126/84 122/93 120/88 O2 Sat by Pulse 100 98 98 Oximetry 04/28/18 04:55 Temperature Pulse Rate 115 H Respiratory 18 Rate Blood Pressure 121/87 O2 Sat by Pulse 97 Oximetry Medical Decision Making - Medical Decision Making Patient is a 57 year old woman with dyspnea of mixed etiology. There is component of CHF and COPD, patient feeling better with treatment initiated in department. Will admit for further treatment as well as serial troponin and telemtry monitoring. - Lab Data Result diagrams: 04/28/18 00:20 04/28/18 00:20 Lab Results 04/28/18 04/28/18 04/28/18 Range/Units 00:20 00:20 00:20 WBC 8.1 (3.8-10.6) k/uL RBC 5.04 (3.80-5.40) m/uL Hgb 12.7 (11.4-16.0) gm/dL Hct 40.3 (34.0-46.0) % MCV 79.8 L (80.0-100.0) fL MCH 25.1 (25.0-35.0) pg MCHC 31.4 (31.0-37.0) g/dL RDW 17.8 H (11.5-15.5) % Plt Count 422 (150-450) k/uL Neutrophils % 76 % Lymphocytes % 15 % Monocytes % 4 % Eosinophils % 2 % Basophils % 0 % Neutrophils # 6.1 (1.3-7.7) k/uL Lymphocytes # 1.2 (1.0-4.8) k/uL Monocytes # 0.3 (0-1.0) k/uL Eosinophils # 0.1 (0-0.7) k/uL Basophils # 0.0 (0-0.2) k/uL Hypochromasia Slight Anisocytosis Slight Microcytosis Slight PT (9.0-12.0) sec INR (<1.2) APTT (22.0-30.0) sec Sodium 140 (137-145) mmol/L Potassium 4.7 (3.5-5.1) mmol/L Chloride 109 H (98-107) mmol/L Carbon Dioxide 21 L (22-30) mmol/L Anion Gap 10 mmol/L BUN 25 H (7-17) mg/dL Creatinine 0.86 (0.52-1.04) mg/dL Est GFR (CKD-EPI)AfAm 87 (>60 ml/min/1.73 sqM) Est GFR (CKD-EPI)NonAf 76 (>60 ml/min/1.73 sqM) Glucose 221 H (74-99) mg/dL Calcium 9.7 (8.4-10.2) mg/dL Magnesium 1.5 L (1.6-2.3) mg/dL Total Bilirubin 0.7 (0.2-1.3) mg/dL AST 21 (14-36) U/L ALT 24 (9-52) U/L Alkaline Phosphatase 135 H (38-126) U/L Total Creatine Kinase 44 (30-135) U/L CK-MB (CK-2) 0.9 (0.0-2.4) ng/mL CK-MB (CK-2) Rel Index 2.0 Troponin I 0.038 H* (0.000-0.034) ng/mL NT-Pro-B Natriuret Pep pg/mL Total Protein 6.6 (6.3-8.2) g/dL Albumin 4.0 (3.5-5.0) g/dL 04/28/18 04/28/18 Range/Units 00:20 00:20 WBC (3.8-10.6) k/uL RBC (3.80-5.40) m/uL Hgb (11.4-16.0) gm/dL Hct (34.0-46.0) % MCV (80.0-100.0) fL MCH (25.0-35.0) pg MCHC (31.0-37.0) g/dL RDW (11.5-15.5) % Plt Count (150-450) k/uL Neutrophils % % Lymphocytes % % Monocytes % % Eosinophils % % Basophils % % Neutrophils # (1.3-7.7) k/uL Lymphocytes # (1.0-4.8) k/uL Monocytes # (0-1.0) k/uL Eosinophils # (0-0.7) k/uL Basophils # (0-0.2) k/uL Hypochromasia Anisocytosis Microcytosis PT 11.2 (9.0-12.0) sec INR 1.1 (<1.2) APTT 23.3 (22.0-30.0) sec Sodium (137-145) mmol/L Potassium (3.5-5.1) mmol/L Chloride (98-107) mmol/L Carbon Dioxide (22-30) mmol/L Anion Gap mmol/L BUN (7-17) mg/dL Creatinine (0.52-1.04) mg/dL Est GFR (CKD-EPI)AfAm (>60 ml/min/1.73 sqM) Est GFR (CKD-EPI)NonAf (>60 ml/min/1.73 sqM) Glucose (74-99) mg/dL Calcium (8.4-10.2) mg/dL Magnesium (1.6-2.3) mg/dL Total Bilirubin (0.2-1.3) mg/dL AST (14-36) U/L ALT (9-52) U/L Alkaline Phosphatase (38-126) U/L Total Creatine Kinase (30-135) U/L CK-MB (CK-2) (0.0-2.4) ng/mL CK-MB (CK-2) Rel Index Troponin I (0.000-0.034) ng/mL NT-Pro-B Natriuret Pep 99377 pg/mL Total Protein (6.3-8.2) g/dL Albumin (3.5-5.0) g/dL Disposition Clinical Impression: COPD exacerbation, Congestive heart failure Disposition: ADMITTED IP TO THIS HOSP Condition: Fair
[2018-04-28] MEDS ORDERED: AMOXIC-POT CLAV 875-125MG 1 EACH TAB PO SCH (10:15)
--- NOTE | 2018-04-28 11:06 | P.HPIM ---
History of Present Illness This is combined H&P and discharge summary This is a pleasant 57 years old female with past medical history of COPD, congestive heart failure,history of cardiac transplant in 2012,history of LV dysfunction, ejection fraction was about 40%, she has history of moderate to severe mitral regurgitation, She had an echocardiogram with Doppler study performed on the fifth of this month with showed an ejection fraction of 25-30% , moderate MR, severe TR, moderate pulmonary hypertension , she has history of clot in her neck veins, was on Eliquis but stopped now by her doctor. diabetes mellitus, hyperlipidemia, hypertension, renal disease. Patient is not oxygen dependent however she is using a steroids 5 mg daily on baseline for her COPD. And she follow up with Dr. Guillen an outpatient setting. And she'll follow up with Dr. hess the elementary education tutor from her report of system She presents because of dyspnea which is thought to be due to her heart failure rather than her COPD exacerbation, although there is some elements of pulmonary infiltrate on her chest x-ray which might be contributing to her symptoms. On admission her CBC was unremarkable. INR 1.1. Electrolytes within normal limits. Creatinine 0.8. Blood sugar Lipitor the high side 221-283. Low magnesium at 1.5. And elevated troponin 0.03 and 1.3. Chest x-ray showed cardiomegaly and there is new lower lobe pulmonary infiltrate with mild pulmonary congestion but no definite heart failure as per radiologist report. Patient is on nebulized bronchodilators, high-dose Solu-Medrol infusions, Prograf, cellcept, Symbicort. Jardiance for her diabetes, lisinopril and toprol and a statin. Augmentin was started for possible pneumonia, although there is no fever and leukocytosis at 8.1K. Magnesium is been replaced. Patient had small dose of Lasix, nitroglycerin and pain medicine Patient is being transferred to [facility] where she received her cardiac transplant in 2012. she is being transferred there under the care of Sabina Estes who accepted the pt (Teresita from our cardiology team talked to her). Problems and management plan was discussed with the patient. Patient was found stable and can be discharged to [facility] in guarded prognosis . Patient agrees to the transfer Gen: patient is a AAOx3, no distress CVS: S1-S2, RRR, no murmur Lungs: B/L CTA, no wheezing. Bilateral basilar crepitation. Abdomen: soft, no distention, no tenderness, positive bowel sounds Extremity: no leg edema or induration Time spent more than 35 minutes Review of Systems CONSTITUTIONAL: No fever, no malaise, no fatigue. HEENT: No recent visual problems or hearing problems. Denied any sore throat. CARDIOVASCULAR: No orthopnea, PND, no palpitations, no syncope. PULMONARY: No shortness of breath, no cough, no hemoptysis. GASTROINTESTINAL: No diarrhea, no nausea, no vomiting, no abdominal pain. Normoactive bowel sounds. NEUROLOGICAL: No headaches, no weakness, no numbness. HEMATOLOGICAL: Denies any bleeding or petechiae. GENITOURINARY: Denies any burning micturition, frequency, or urgency. MUSCULOSKELETAL/RHEUMATOLOGICAL: Denies any joint pain, swelling, or any muscle pain. ENDOCRINE: Denies any polyuria or polydipsia. Past Medical History Past Medical History: Heart Failure, COPD, Diabetes Mellitus, Hyperlipidemia, Hypertension, Renal Disease Additional Past Medical History / Comment(s): heart transplant from [facility] on May 2012. DM due to prednisone taking Januvia at home. History of Any Multi-Drug Resistant Organisms: None Reported Past Surgical History: Cholecystectomy, Hysterectomy, Joint Replacement, Orthopedic Surgery Additional Past Surgical History / Comment(s): heart transplant 2013, sinus, carpal tunnel, left knee replacement. *40 stents in her old heart Past Anesthesia/Blood Transfusion Reactions: No Reported Reaction Smoking Status: Former smoker - Past Family History Father Family Medical History: Cancer Additional Family Medical History / Comment(s): melanoma Mother Family Medical History: Cancer Additional Family Medical History / Comment(s): rectal Medications and Allergies Home Medications Medication Instructions Recorded Confirmed Type Aspirin 81 mg PO DAILY 03/28/17 04/02/18 History Ferrous Sulfate [Iron (65 MG 325 mg PO BID 03/28/17 04/02/18 History Elemental)] Omeprazole 20 mg PO DAILY 03/28/17 04/02/18 History Pravastatin Sodium [Pravachol] 40 mg PO HS 03/28/17 04/02/18 History Tacrolimus [Prograf] 2 mg PO DAILY 03/28/17 04/02/18 History Allergy Tabotc(Unknown) 1 tab PO DAILY 06/13/17 04/02/18 History Mycophenolate Mofetil [Cellcept] 1,250 mg PO BID 07/17/17 04/02/18 History predniSONE 5 mg PO DAILY 07/17/17 04/02/18 History valGANciclovir [Valcyte] 450 mg PO QAM 07/17/17 04/02/18 History Albuterol Inhaler [Ventolin Hfa 2 puff INHALATION RT-Q4H PRN 02/01/18 04/02/18 History Inhaler] Citalopram Hydrobromide [CeleXA] 20 mg PO DAILY 02/01/18 04/02/18 History Cyclobenzaprine [Flexeril] 10 mg PO Q8H 02/01/18 04/02/18 History Empagliflozin [Jardiance] 25 mg PO DAILY 02/01/18 04/02/18 History Ipratropium-Albuterol Nebulize 3 ml INHALATION RT-Q6H PRN 02/01/18 04/02/18 History [Duoneb 0.5 mg-3 mg/3 ml Soln] Lisinopril [Zestril] 5 mg PO DAILY 02/01/18 04/02/18 History Magnesium Oxide [Mag-Ox] 400 mg PO DAILY 02/01/18 04/02/18 History Multivitamins, Thera [Multivitamin 1 tab PO DAILY 02/01/18 04/02/18 History (formulary)] Potassium Chloride ER [K-Dur 10] 10 meq PO DAILY 02/01/18 04/02/18 History Tacrolimus [Prograf] 2.5 mg PO HS 02/01/18 04/02/18 History Varenicline [Chantix Continuing 1 mg PO BID 02/01/18 04/02/18 History Pack] Zolpidem [Ambien] 10 mg PO HS PRN 02/01/18 04/02/18 History Metoprolol Succinate (ER) [Toprol 25 mg PO BID #60 tab.er.24h 02/03/18 04/02/18 Rx XL] Furosemide [Lasix] 40 mg PO BID 04/02/18 04/02/18 History Amoxic-Pot Clav 875-125Mg 1 each PO Q12HR tab 04/28/18 Rx [Augmentin 875-125] Allergies Allergy/AdvReac Type Severity Reaction Status Date / Time morphine Allergy Rash/Hives Verified 04/27/18 23:43 sulfamethoxazole Allergy Dyspnea Verified 04/27/18 23:43 [From Bactrim] trimethoprim [From Bactrim] Allergy Dyspnea Verified 04/27/18 23:43 meperidine [From Demerol] AdvReac Hallucinati Verified 04/27/18 23:43 ons Physical Exam Vitals: Vital Signs Temp Pulse Pulse Resp BP BP Pulse Ox 04/28/18 08:20 96.9 F L 118 H 18 109/74 98 04/28/18 06:29 97.8 F 120 H 20 105/80 95 04/28/18 04:55 115 H 18 121/87 97 04/28/18 02:28 116 H 19 120/88 98 04/28/18 00:24 123 H 18 122/93 98 04/27/18 23:40 97.6 F 133 H 20 126/84 100 Intake and Output 04/27/18 04/28/18 04/28/18 22:59 06:59 14:59 Intake Total 240 Balance 240 Intake: Oral 240 Other: Weight 70.1 kg GENERAL: The patient is alert and oriented x3, not in any acute distress. Well developed, well nourished. HEENT: Pupils are round and equally reacting to light. EOMI. No scleral icterus. No conjunctival pallor. Normocephalic, atraumatic. No pharyngeal erythema. No thyromegaly. CARDIOVASCULAR: S1 and S2 present. No murmurs, rubs, or gallops. PULMONARY: Chest is clear to auscultation, no wheezing or crackles. ABDOMEN: Soft, nontender, nondistended, normoactive bowel sounds. No palpable organomegaly. MUSCULOSKELETAL: No joint swelling or deformity. EXTREMITIES: No cyanosis, clubbing, or pedal edema. NEUROLOGICAL: Gross neurological examination did not reveal any focal deficits. SKIN: No rashes. Results CBC & Chem 7: 04/28/18 00:20 04/28/18 00:20 Labs: Abnormal Lab Results - Last 24 Hours (Table) 04/28/18 04/28/18 04/28/18 Range/Units 00:20 00:20 00:20 MCV 79.8 L (80.0-100.0) fL RDW 17.8 H (11.5-15.5) % Chloride 109 H (98-107) mmol/L Carbon Dioxide 21 L (22-30) mmol/L BUN 25 H (7-17) mg/dL Glucose 221 H (74-99) mg/dL POC Glucose (mg/dL) (75-99) mg/dL Magnesium 1.5 L (1.6-2.3) mg/dL Alkaline Phosphatase 135 H (38-126) U/L CK-MB (CK-2) (0.0-2.4) ng/mL Troponin I 0.038 H* (0.000-0.034) ng/mL 04/28/18 04/28/18 Range/Units 06:13 07:58 MCV (80.0-100.0) fL RDW (11.5-15.5) % Chloride (98-107) mmol/L Carbon Dioxide (22-30) mmol/L BUN (7-17) mg/dL Glucose (74-99) mg/dL POC Glucose (mg/dL) 283 H (75-99) mg/dL Magnesium (1.6-2.3) mg/dL Alkaline Phosphatase (38-126) U/L CK-MB (CK-2) 14.0 H (0.0-2.4) ng/mL Troponin I 1.320 H* (0.000-0.034) ng/mL Thrombosis Risk Factor Assmnt - Choose All That Apply Any of the Below Risk Factors Present?: Yes Each Factor Represents 1 point: Acute IA, Age 41-60 years, Heart failure (< 1month), Obesity (BMI >25) Other Risk Factors: No Thrombosis Risk Factor Assessment Total Risk Factor Score: 4 Thrombosis Risk Factor Assessment Level: Moderate Risk Assessment and Plan Plan: This is a pleasant 57 years old female who presents with acute CHF exacerbation. Patient needs to be transferred to her in [facility] to be taken care of by her cardiology team and their hospital. Labs and medication were reviewed.. Continue same treatment. Continue with symptomatic treatment. Resume home medication. Monitor lytes and vitals. DVT and GI prophylaxis. Further recommendations of the clinical course of the patient DVT prophylaxis: Subcutaneous heparin GI Prophylaxis: Pepcid PT/OT: Pending Prognosis is guarded
[2018-04-28] MEDS ORDERED: MULTIVITAMINS, THERA 1 EACH TAB PO SCH (12:00)
[2018-04-28 12:16] LABS: Anisocytosis Slight; HCT 42.7 % (34.0-46.0); Hypochromasia Marked; MCH 24.7 pg (25.0-35.0); MCHC 28.1 g/dL (31.0-37.0); Mean Platelet Volume 7.4; Platelet Count 406 k/uL (150-450); RBC 4.87 m/uL (3.80-5.40); RDW 17.3 % (11.5-15.5); WBC 9.1 k/uL (3.8-10.6)
[2018-04-28 12:23] LABS: MCV 87.9 fL (80.0-100.0)
[2018-04-28 12:23] LABS: Glucose,Whole Blood 320 mg/dL (75-99)
[2018-04-28 12:25] LABS: Albumin 3.8 g/dL (3.5-5.0); Calcium 10.9 mg/dL (8.4-10.2); Magnesium 2.5 mg/dL (1.6-2.3); Potassium 4.4 mmol/L (3.5-5.1); Total Bilirubin 0.7 mg/dL (0.2-1.3); Total Protein 6.1 g/dL (6.3-8.2)
--- NOTE | 2018-04-28 12:56 | XR ---
EXAMINATION TYPE: XR chest 1V portable DATE OF EXAM: 04/28/2018 COMPARISON: 04/28/2018 earlier exam INDICATION: Pulmonary edema ET tube placement post CODE BLUE TECHNIQUE: Single frontal view of the chest is obtained. FINDINGS: The heart size is enlarged. The pulmonary vasculature is within normal limits. Mild infiltrate may be at the left base. This may be slightly improved over the interval. Endotracheal tube has been placed the tip above the isamar. IMPRESSION: 1. Endotracheal tube tip 4 cm above the isamar. 2. Mild improving basilar infiltrate may be related atelectasis
[2018-04-28 12:58] LABS: Creatine Kinase MB 28.8 ng/mL (0.0-2.4)
[2018-04-28 13:01] LABS: Troponin I 3.68 ng/mL (0.000-0.034)
[2018-04-28 13:04] LABS: ABG Base Excess -11.3 mmol/L; ABG HCO3 15 mmol/L (21-25); ABG Oxygen Saturation 99.2 % (94-97); ABG PCO2 33 mmHg (35-45); ABG PH 7.28 (7.35-7.45); ABG PO2 269 mmHg (83-108); ABG TCO2 16 mmol/L (19-24)
[2018-04-28] MEDS ORDERED: CISATRACURIUM 2 MG/ML 5 ML VIAL IV ONE (13:20)
[2018-04-28] MEDS: MAGNESIUM SULFATE-D5W PMX 1 GM in DEXTROSE/WATER 1 100ML.BAG IVPB SCH ×2 (13:22→13:24)
[2018-04-28] MEDS ORDERED: INSULIN REGULAR BOLUS (FROM DRIP BAG) IV PRN (13:28)
[2018-04-28] MEDS ORDERED: NALOXONE 0.4 MG/ML 1 ML VIAL IV PRN (13:29)
[2018-04-28] MEDS ORDERED: PROPOFOL 1,000 MG in EMPTY BAG 1 BAG IV SCH (13:30)
[2018-04-28] MEDS ORDERED: LACTATED RINGERS 1,000 ML IV SCH (13:30)
[2018-04-28] MEDS ORDERED: INSULIN REGULAR 100 UNIT in SODIUM CHLORIDE 0.9% 100 ML IV SCH (14:00)
[2018-04-28] MEDS ORDERED: NOREPINEPHRINE 16 MG in SODIUM CHLORIDE 0.9% 250 ML IV SCH (14:00)
[2018-04-28 15:14] VITALS: BP 100/72; TEMP 97.6
[2018-04-28 15:23] LABS: ABG Base Excess -3.7 mmol/L; ABG HCO3 22 mmol/L (21-25); ABG Oxygen Saturation 98.6 % (94-97); ABG PCO2 42 mmHg (35-45); ABG PH 7.33 (7.35-7.45); ABG PO2 139 mmHg (83-108); ABG TCO2 24 mmol/L (19-24)
[2018-04-28 15:30] LABS: Glucose,Whole Blood 162 mg/dL (75-99)
--- NOTE | 2018-04-28 16:04 | CONS ---
CONSULTATION PULMONARY/CRITICAL CARE CONSULTATION: DATE OF SERVICE: 04/28/2018 This is a 57-year-old female well known to us. She has a history of previous cardiac transplant at [facility]. 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 She has been in and out of the hospital for exacerbations of heart failure and/or COPD. Anyway, the patient came into the emergency room on April 27. She apparently was seen there by the ER doctor. Her complaints at that time included shortness of breath. In addition, she apparently had some lower extremity edema. She also had some aching pain to her left forearm. She denied any diaphoresis, chest pain, nausea, vomiting or syncope. We actually did not see her initially when she came in. While we were seeing patients on the floor, we heard overhead a CODE BLUE. It was this patient. The patient had a prolonged resuscitation of about 20 minutes. She had numerous rounds of epinephrine and electrical cardioversion. The patient was initially entirely found to be either in PEA or cardiopulmonary arrest. Anyway, after about 20 or 25 minutes, she was resuscitated and had returned to spontaneous circulation. The patient was transferred up to the ICU. According to the nurse, she apparently was doing fine; she apparently got up, at which point she apparently either lost her pulse and pressure or had something happen to her which caused the cardiac arrest. Anyway, she was resuscitated, intubated by Anesthesia and brought to the ICU. Here in the ICU we placed an arterial line and a central line. The patient is going to be transferred to [facility]. Her transplant was done at [facility]. HOME MEDICATIONS: Her home medications include: 1. Aspirin. 2. Iron. 3. Omeprazole. 4. Pravastatin. 5. Prograf. 6. CellCept. 7. Prednisone. 8. Valcyte. 9. Albuterol inhaler. 10.Celexa. 11.Flexeril. 12.Jardiance. 13.DuoNeb updrafts. 14.Zestril. 15.Mag-Ox. 16.Multivitamins. 17.Potassium chloride. 18.Chantix. 19.Ambien. 20.Lasix. 21.She has also been on Toprol-XL. ALLERGIES: INCLUDE: 1. MORPHINE. 2. SULFA ANTIBIOTICS. 3. TRIMETHOPRIM. 4. She also apparently has allergy for MEPERIDINE, which is DEMEROL. MEDICAL HISTORY: Includes: 1. Viral cardiomyopathy, status post cardiac transplantation. Heart transplant was done in May 2012 at [facility]. 2. History of COPD. 3. Diabetes. 4. Hyperlipidemia. 5. Hypertension. 6. Renal insufficiency. SURGICAL HISTORY: Includes: 1. Cardiac transplantation. 2. Cholecystectomy. 3. Hysterectomy. 4. Joint replacement. 5. Carpal tunnel surgery. 6. Left knee replacement. 7. A number of stents previous to her cardiac transplantation. SOCIAL HISTORY: Positive for previous tobacco use. No significant alcohol use or illicit drug use. FAMILY HISTORY: Apparently positive for rectal cancer and melanoma. REVIEW OF SYSTEMS: Review of systems cannot be obtained. The patient is currently sedated on the mechanical ventilator. Apparently when she was in the emergency room her complaint was primarily shortness of breath. PHYSICAL EXAMINATION: CURRENT VITAL SIGNS: Temperature is 96.9, heart rate 118, respiratory rate 22, blood pressure 109/74, mean 85, and saturations on the ventilator are about 95% to 96% . Appears in no acute distress. Currently sedated. There is an orally placed endotracheal tube and NG tube. HEENT examination is grossly unremarkable. Mucous membranes are moist. NECK: Supple. Full range of motion. No adenopathy or thyromegaly. Cardiovascular examination reveals regular rhythm and rate. Heart sounds are distant. Heart rate about 115. Lungs reveal coarse rhonchi bilaterally. Breath sounds are diminished. There is prolongation on forced maneuver. No wheezes. ABDOMEN: Soft. Bowel sounds are heard. Extremities reveal some mild edema. It is 1+ and pitting. Skin without rash. Neurologic examination could not be properly evaluated. LABORATORY DATA: Laboratory data include white count 9.1, hemoglobin 12, hematocrit 42.7, platelet count 406,000. Blood gases that were done on 100% show PO2 of 269, pCO2 of 33, pH 7.28. The FiO2 was dropped down to 50%. Sodium 142, potassium 4.4, chloride 105, CO2 16. BUN and creatinine were 25 and 1.14. Glucose is 342. Troponin was 1.320 and 3.680. Calcium is 10.9 and magnesium 2.5. Chest x-ray shows evidence of mild fluid overload. The patient's N-terminal proBNP was quite high at 11,700. ASSESSMENT: 1. Status post cardiopulmonary arrest of unclear etiology, with prolonged cardiopulmonary resuscitation and return of spontaneous circulation (CPA/CPR /ROSC). 2. Post cardiopulmonary arrest ventilator management. 3. Status post cardiac transplantation, May 2012. 4. History of heart failure. 5. History of chronic obstructive pulmonary disease. 6. History of diabetes mellitus. 7. History of hyperlipidemia. 8. History of hypertension. PLAN: The patient had an arterial line placed and a central line placed. Repeat blood gas will be ordered. The patient was placed on appropriate bronchodilators. Labs were ordered and will be evaluated. We are going to attempt to transfer for the patient to [facility], where she had her transplantation and where she has follow- up cardiac care. No additional recommendations are made. Prognosis is very guarded, given the fact that she had a very prolonged resuscitation phase. MMJANNETHL / GAVINON: [id number] / MTDD
[2018-04-28 16:39] LABS: Glucose,Whole Blood 84 mg/dL (75-99)
[2018-04-28 16:52] LABS: Amorphous Sediment,Urine Rare /hpf; Appearance,Urine Cloudy (Clear); Bacteria,Urine Few /hpf; Bilirubin,Urine Negative (Negative); Blood,Urine Trace (Negative); Color,Urine Yellow; Glucose,Urine (UA) Trace (Negative); Granular Casts,Urine 9 /lpf (0); Hyaline Casts,Urine 23 /lpf (0-2); Ketones,Urine Negative (Negative); Leukocyte Esterase,Urine Negative (Negative); Mucus,Urine Rare /hpf; Nitrite,Urine Negative (Negative); PH, Urine 5.5 (5.0-8.0); Protein,Urine 2+ (Negative); RBC,Urine 2 /hpf (0-5); Specific Gravity,Urine 1.013 (1.001-1.035)
[2018-04-28 17:57] VITALS: PULSE 102; RESP 26
--- NOTE | 2018-04-28 19:31 | PCN ---
PROCEDURE NOTE ARTERIAL LINE PLACEMENT: Indications: Hemodynamic monitoring. A time-out was completed verifying correct patient, procedure, site, positioning, and implant(s) or special equipment if applicable. Elmer's test was performed to ensure adequate perfusion. The patient's left wrist was prepped and draped in sterile fashion. 1% Lidocaine was used to anesthetize the area. An 18G Arrow arterial line was introduced into the radial artery. The catheter was threaded over the guide wire and the needle was removed with appropriate pulsatile blood return. Blood loss was minimal. The catheter was then sutured in place to the skin and a sterile dressing applied. Perfusion to the extremity distal to the point of catheter insertion was checked and found to be adequate. The patient tolerated the procedure well and there were no immediate complications. Good waveform was noted. Blood return line was flushed, sutured in place. Sterile dressing was applied by nursing staff. MMODL / IJN: [id number] /
--- NOTE | 2018-04-28 19:31 | PCN ---
PROCEDURE NOTE PROCEDURE: Right femoral triple-lumen catheter. PREOPERATIVE DIAGNOSIS: Administration of fluids and pressors. POSTOPERATIVE DIAGNOSIS: Administration of fluids and pressors. TRIPLE LUMEN CATHETER PLACEMENT: Indication: Hemodynamic monitoring/Intravenous access. A time-out was completed verifying correct patient, procedure, site, positioning, and implant(s) or special equipment if applicable. The patient was placed in a dependent position appropriate for triple lumen catheter placement based on the vein to be cannulated. The patient's right groin was prepped and draped in sterile fashion. 1% Lidocaine was used to anesthetize the surrounding skin area. A triple lumen 9F Cordis catheter was introduced into the right femoral vein using Seldinger technique. The catheter was threaded smoothly over the guide wire and appropriate blood return was obtained. Each lumen of the catheter was evacuated of air and flushed with sterile saline. The catheter was then sutured in place to the skin and a sterile dressing applied. Perfusion to the extremity distal to the point of catheter insertion was checked and found to be adequate. There was no immediate complication. Right femoral site was used. There was good blood return from all 3 ports. The patient tolerated the procedure well. The catheter was sutured in place. A sterile dressing was applied by the nurse. There was no immediate complication. MMODL / IJN: [id number] /
[2018-04-28] MEDS ORDERED: TACROLIMUS 0.5 MG CAP PO SCH (21:00)
[2018-04-28] MEDS ORDERED: PRAVASTATIN SODIUM 40 MG TAB PO SCH (21:00)
[2018-04-28] MEDS ORDERED: CHLORHEXIDINE GLUCONATE 15 ML CUP MUCOUS MEM SCH (21:00)
== END 2018-04-28 18:19 | disposition short-term general hospital (02) | DRG 291 ==
LOC: EC 23:28 → 3SCARD 04-28 04:55 → 2SICU 04-28 12:26
PROVIDERS: ADMIT Hospitalist; ATTEND Hospitalist
PROC: 5A12012 Performance of Cardiac Output, Single, Manual (ICD-10-PCS; principal; 2018-04-28)
PROC: 03HY32Z Insertion of Monitoring Device into Upper Artery, Percutaneous Approach (ICD-10-PCS; 2018-04-28)
PROC: 4A133B1 Monitoring of Arterial Pressure, Peripheral, Percutaneous Approach (ICD-10-PCS; 2018-04-28)
PROC: 4A133J1 Monitoring of Arterial Pulse, Peripheral, Percutaneous Approach (ICD-10-PCS; 2018-04-28)
PROC: 02HV33Z Insertion of Infusion Device into Superior Vena Cava, Percutaneous Approach (ICD-10-PCS; 2018-04-28)
PROC: 5A1935Z Respiratory Ventilation, Less than 24 Consecutive Hours (ICD-10-PCS; 2018-04-28)
PROC: 0BH17EZ Insertion of Endotracheal Airway into Trachea, Via Natural or Artificial Opening (ICD-10-PCS; 2018-04-28)
DX: I11.0 Hypertensive heart disease with heart failure (principal); I46.9 Cardiac arrest, cause unspecified; J44.1 Chronic obstructive pulmonary disease with (acute) exacerbation; J98.11 Atelectasis; Z94.1 Heart transplant status; I50.23 Acute on chronic systolic (congestive) heart failure; E09.9 Drug or chemical induced diabetes mellitus without complications; E78.5 Hyperlipidemia, unspecified; F17.210 Nicotine dependence, cigarettes, uncomplicated; I27.20 Pulmonary hypertension, unspecified; I08.1 Rheumatic disorders of both mitral and tricuspid valves; I45.10 Unspecified right bundle-branch block; K21.9 Gastro-esophageal reflux disease without esophagitis; N28.9 Disorder of kidney and ureter, unspecified; Z79.82 Long term (current) use of aspirin; Z79.84 Long term (current) use of oral hypoglycemic drugs; Z79.899 Other long term (current) drug therapy; Z80.0 Family history of malignant neoplasm of digestive organs; Z80.8 Family history of malignant neoplasm of other organs or systems; Z90.710 Acquired absence of both cervix and uterus; Z96.652 Presence of left artificial knee joint; R74.8 Abnormal levels of other serum enzymes; Z86.718 Personal history of other venous thrombosis and embolism; R00.0 Tachycardia, unspecified; Z88.5 Allergy status to narcotic agent; Z88.2 Allergy status to sulfonamides; Z79.52 Long term (current) use of systemic steroids; I25.10 Atherosclerotic heart disease of native coronary artery without angina pectoris; Z95.5 Presence of coronary angioplasty implant and graft; T38.0X5S Adverse effect of glucocorticoids and synthetic analogues, sequela; E83.42 Hypomagnesemia
CPT/HCPCS: 36415; 71045; 71046; 80053; 81001; 82550; 82553; 82805; 83735; 83880; 84484; 85025; 85027; 85610; 85730; 93005; 94002; 94640; 96374; 96375; 99285